=== PATIENT | female | born 1965 | race Caucasian/White ===

== ENCOUNTER 2023-06-07 13:50 | Outpatient (OUT) | payer OTHER, SELFPAY ==
--- NOTE | 2023-06-07 | MM_ITS ---
Patient: SONAL AGUILLON Exam Date: 06/07/2023 : 1965 Gender:F Ordering : DR TOAN PHELAN . Admission #: [id number] Family : Order #: [id number] CLICK HERE TO VIEW EXAM RADIOLOGY REPORT PROCEDURE: MM TOMOSYNTHESIS SCREENING BI COMPARISON: MG MAMM SCREEN 3D ALLYSON CAD, 11/15/2020. MG MAMM SCREEN 3D ALLYSON CAD, 06/01/2022. INDICATIONS: Allyson Screening Mammogram Calculator Name NCI Breast Cancer Risk Assessment Tool 5 Year Breast Cancer Risk 1.50% Lifetime Breast Cancer Risk 8.30% Personal Breast Cancer No Personal Ovarian Cancer No Treatments None Family Cancers Father with prostate cancer at age 55; Father with pancreatic cancer at age 60. LOCATION: [facility] BREAST COMPOSITION: Scattered areas fibroglandular density. FINDINGS: DIAGNOSTIC CATEGORY 1--NEGATIVE. NO CHANGE FROM COMPARISON ASSESSMENT. Scattered benign-appearing calcifications are present. Scattered benign-appearing lymph nodes are present. RIGHT BREAST: No significant suspicious finding. LEFT BREAST: No significant suspicious finding. RECOMMENDATIONS: ROUTINE MAMMOGRAM AND CLINICAL EVALUATION IN 12 MONTHS. PLEASE NOTE: A NORMAL MAMMOGRAM DOES NOT EXCLUDE THE POSSIBILITY OF BREAST CANCER. A CLINICALLY SUSPICIOUS PALPABLE LUMP SHOULD BE BIOPSIED. Dictated by: Jean Prasad MD on 06/07/2023 at 14:40 Approved by: Jean Prasad MD on 06/07/2023 at 14:43
== END 2023-06-07 13:51 | disposition home or self-care (01) ==
LOC: MAMMO 13:54
PROVIDERS: PCP Family Medicine; Visit Provider Family Medicine
DX: Z12.31 Encounter for screening mammogram for malignant neoplasm of breast (principal); Z80.0 Family history of malignant neoplasm of digestive organs; Z80.42 Family history of malignant neoplasm of prostate
CPT/HCPCS: 77063; 77067

== ENCOUNTER 2023-06-12 09:30 | Outpatient (OUT) | payer OTHER, SELFPAY ==
[2023-06-12 11:02] LABS: Alanine Aminotransferase 24 U/L (14-59); Albumin Globulin Ratio 1.2; Albumin Level 3.9 g/dL (3.4-5.0); Alkaline Phosphatase 37 U/L (46-116); Anion Gap 10.5; Aspartate Amino Transferase 14 U/L (15-37); BUN Creatinine Ratio 24.7; Bilirubin Total 0.6 mg/dL (0.2-1.0); Calcium 8.9 mg/dL (8.5-10.1); Carbon Dioxide 28.8 mmol/L (21.0-32.0); Chloride 103 mmol/L (98-107); Chol HDL Ratio 3.7; Cholesterol 163 mg/dL (<=200); Estimated GFR (African America >60 (>=60); Estimated GFR (Non-African Ame >60 (>=60); Globulin 3.3 g/dL; Glucose 93 mg/dL (74-106); HDL Cholesterol 44 mg/dL (40-60); LDL Cholesterol Calculated 110.2 mg/dL; Potassium 4.3 mmol/L (3.5-5.1); Sodium 138 mmol/L (136-145); Total Protein 7.2 g/dL (6.4-8.2); Triglycerides 44 mg/dL (<=150); VLDL CHOLESTEROL 8.8 mg/dL
== END 2023-06-12 09:31 | disposition home or self-care (01) ==
PROVIDERS: PCP Family Medicine; Visit Provider Family Medicine
DX: Z00.00 Encounter for general adult medical examination without abnormal findings (principal); Z13.220 Encounter for screening for lipoid disorders; E88.819 Insulin resistance, unspecified; Z13.1 Encounter for screening for diabetes mellitus
CPT/HCPCS: 36415; 80053; 80061; 82627

== ENCOUNTER 2024-06-12 12:49 | Outpatient (OUT) | payer OTHER, SELFPAY ==
--- NOTE | 2024-06-12 12:52 | MM_ITS ---
Patient Name: SONAL AGUILLON MR#: [id number] : 1965 Exam Date: 06/12/2024 Ordering Doctor: DR TOAN PHELAN . RADIOLOGY REPORT PROCEDURE: MM TOMOSYNTHESIS SCREENING BI COMPARISON: MG MAMM SCREEN 3D ALLYSON CAD, 06/01/2022. MM TOMOSYNTHESIS SCREENING BI, 06/07/2023. INDICATIONS: Screening for malignant neoplasm Calculator Name NCI Breast Cancer Risk Assessment Tool 5 Year Breast Cancer Risk 1.60% Lifetime Breast Cancer Risk 8.10% Personal Breast Cancer No Personal Ovarian Cancer No Treatments None Family Cancers Father with prostate cancer at age 55; Father with pancreatic cancer at age 60. LOCATION: [facility] BREAST COMPOSITION: There are scattered areas of fibroglandular density. FINDINGS: DIAGNOSTIC CATEGORY 1--NEGATIVE. NO CHANGE FROM COMPARISON ASSESSMENT. Scattered benign-appearing calcifications are present. Scattered benign-appearing lymph nodes are present. RIGHT BREAST: No significant suspicious finding. LEFT BREAST: No significant suspicious finding. RECOMMENDATIONS: ROUTINE MAMMOGRAM AND CLINICAL EVALUATION IN 12 MONTHS. PLEASE NOTE: A NORMAL MAMMOGRAM DOES NOT EXCLUDE THE POSSIBILITY OF BREAST CANCER. A CLINICALLY SUSPICIOUS PALPABLE LUMP SHOULD BE BIOPSIED. Dictated by: Jena Prasad MD on 06/12/2024 at 14:52 Approved by: Jean Prasad MD on 06/12/2024 at 14:56
--- OUTSIDE RECORDS SUMMARY | 2024-06-12 12:53 | XMS_ITS | CCD ---
Author Organization [facility] Inform ion Partnership [facility] Care Team Providers Care Psych Coordinator Name Role Phone ZHANE, DR JOYA Admitting Unavailable HEMERAFIQ, DR JOYA Attending Unavailable MISC, DR FONG Primary Care Unavailable ZHANE, DR JOYA Consulting Unavailable DANA, DR CHANTE Montoya Consulting Unavailable ZHANE, DR JOYA Admitting Unavailable ZHANE, DR JOYA Attending Unavailable MISC, DR FONG Primary Care Unavailable ZHANE, DR JOYA Consulting Unavailable DANA, DR CHANTE Montoya Consulting Unavailable MARY, DR ZAVALA Admitting Unavailable MARY, DR ZAVALA Attending Unavailable MISC, DR FONG Primary Care Unavailable MARY, DR ZAVALA Consulting Unavailable Jason Phelan MD Primary Care Provider [phone] JASON PHELAN Attending Unavailable JASON PHELAN Attending Unavailable Allergies Allergy Classification Reported Allergen(s) Allergy Type Date of Onset Reaction(s) Facility (3 sources) Sulfamethoxazole Allergy to substance 3 [facility] (3 sources) Trimethoprim Drug Allergy 3 [facility] Medications Current Medications Medication Drug Class(es) Dates Sig (Normalized) Sig (Original) ALPRAZolam 0.25 mg oral tablet (3 sources) Benzodiazepine Start: 09-14-2022 take 1 tablet by mouth three times daily as needed for anxiety ALPRAZolam (Xanax) 0.25 MG tablet Indications: Generalized anxiety disorder (CMS/HCC) Take 1 tablet (0.25 mg) by mouth 3 (three) times a day as needed for anxiety for up to 10 days 15 tablet 10/07/2023 Active citalopram 40 mg oral tablet (3 sources) Serotonin Reuptake Inhibitor Start: 03-27-2024 End: 09-23-2024 take 1 tablet by mouth once daily citalopram (CeleXA) 40 MG tablet Indications: Generalized anxiety disorder (CMS/HCC) Take 1 tablet (40 mg) by mouth Daily 90 tablet 1 03/27/2024 09/23/2024 Active Start: 04-14-2023 End: 10-11-2023 take 1 tablet by mouth in the morning citalopram (CeleXA) 40 MG tablet Indications: Generalized anxiety disorder (CMS/HCC) Take 1 tablet (40 mg) by mouth in the morning. 90 tablet 1 04/14/2023 10/11/2023 Active Hormone Cream Base (HRT Cream Base Women) cream (3 sources) Start: 04-21-2023 Hormone Cream Base (HRT Cream Base Women) cream Indications: Menopausal syndrome , Hot flashes due to menopause Use 1 mL nightly days 1 through 25 of the month 0 04/21/2023 Active meclizine hydrochloride 25 mg oral tablet (3 sources) Antiemetic take 1 tablet by mouth every eight hours meclizine (Antivert) 25 MG tablet Take 25 mg by mouth every 8 (eight) hours. 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] Onset: 04-01-2023 04-01-2023 Chronic Immunizations and screening for infectious disease (1 source) Encounter for screening for human papillomavirus (HPV); Translations: [ENC SCREENING HUMAN PAPILLOMAVIRUS] Onset: 06-02-2022 Episodic Menopausal disorders (4 sources) Menopausal and female climacteric states; Translations: [Menopausal flushing] Onset: 07-04-2022 04-01-2023 Chronic Other nutritional; endocrine; and metabolic disorders (3 sources) Insulin resistance; Translations: [Insulin resistance] Onset: 04-01-2023 04-01-2023 Chronic Other screening for suspected conditions (not mental disorders or infectious disease) (9 sources) Encounter for screening for osteoporosis; Translations: [Encounter for screening for malignant neoplasm of cervix] Onset: 06-01-2022 Episodic Residual codes; unclassified (1 source) Family history of malignant neoplasm of prostate; Translations: [FAMILY HX MALIG NEOPLASM PROSTATE] Onset: 06-02-2022 Episodic Residual codes; unclassified (1 source) Family history of malignant neoplasm of other organs or systems; Translations: [FAM HX MALIG NEOPLASM OTH ORGN/SYS] Onset: 06-02-2022 Episodic Past or Other Problems Problem Classification Problem Date Documented Da te Episodic/Chronic Conditions associated with dizziness or vertigo (3 sources) Vertigo; Translations: [Dizziness and giddiness] Onset: 04-01-2023 Resolved: 06-07-2023 06-07-2023 Episodic Menopausal disorders (3 sources) Drug therapy status; Translations: [Hormone replacement therapy] Onset: 04-01-2023 04-01-2023 Episodic Other connective tissue disease (3 sources) Poor posture; Translations: [Abnormal posture] Onset: 04-01-2023 04-01-2023 Episodic Other ear and sense organ disorders (3 sources) Bilateral tinnitus; Translations: [Tinnitus, bilateral] Onset: 04-01-2023 04-01-2023 Episodic Screening and history of mental health and substance abuse codes (3 sources) Ex-smoker; Translations: [Personal history of nicotine dependence] Onset: 08-29-2019 05-31-2023 Episodic Results Test Name Value Interpretation Reference Range Facil ity XR DEXA BONE DENSITYon 06-29 XR DEXA BONE DENSITY EXAMINATION: XR DEXA BONE DENSITY, 06/29/2022 8:58 AM EST HISTORY: Screening for osteoporosis COMPARISON: 01/09/2020 TECHNIQUE: Dual-energy X-ray absorptiometry (DEXA) bone density study performed for the axial skeleton. FINDINGS: Bone mineral density AP spine L1-L4 measures 1.347 g/sq cm. Stable from the prior exam. T score 1.4. WHO classification: Normal. Lowest bone mineral density left femoral trochanter measuring 0.816 g/sq cm. T score -0.3. WHO classification: Normal IMPRESSION: Normal bone mineral density. Low fracture risk Electronically authenticated by: CHANTE CORTEZ Date: 2022-06-29 17:06 Normal [facility] PAP ACOG PANEL 2: 30 to 65on 06-06-2022 . . Normal [facility] Comment on above: Result Comment: Performed at: WB Performed By: #### [id number] #### [facility] [address] [place] [address] Dr. May Tabor Age Gdln ACOG Testing 30-65 Normal [facility] Comment on above: Performed By: #### [id number] #### [facility] [address] [place] [address] Dr. May Tabor DIAGNOSIS: Comment Normal [facility] Comment on above: Result Comment: NEGATIVE FOR INTRAEPITHE LIAL LESION OR MALIGNANCY. Performed at: WB Performed By: #### [id number] #### [facility] [address] [place] [address] Dr. May Tabor HPV Aptima Negative Normal Negative [facility] Comment on above: Result Comment: This nucleic acid amplif ication test detects fourteen high-risk HPV types (16,18,31,33,35,39,45,51,52,56,58,59,66,68) without differentiation. Performed at: =G Performed By: #### [id number] #### [facility] [address] [place] [address] Dr. May Tabor Methodology: Comment Normal [facility] Comment on above: Result Comment: This liquid based ThinPr ep(R) pap test was screened with the use of an image guided system. Performed at: WB Performed By: #### [id number] #### [facility] [address] [place] [address] Dr. May Tabor Note: Comment [facility] Comment on above: Result Comment: The Pap smear is a scree jorge test designed to aid in the detection of premalignant and malignant conditions of the uterine cervix. It is not a diagnostic procedure and should not be used as the sole means of detecting cervical cancer. Both false-positive and false-negative reports do occur. . Performed at: WB Performed By: #### [id number] #### [facility] [address] [place] [address] Dr. May Tabor Performed by: Comment Normal [facility] Comment on above: Result Comment: Marlee Jyoce, [employer] nologist (ASCP) Performed at: WB Performed By: #### [id number] #### [facility] [address] [place] [address] Dr. May Tabor Specimen adequacy: Comment Normal [facility] Comment on above: Result Comment: Satisfactory for evaluat ion. Endocervical and/or squamous metaplastic cells (endocervical component) are present. Performed at: WB Performed By: #### [id number] #### [facility] [address] [address] [address] May Tabor MG MAMM SCREEN 3D ALLYSON CADon 06-01-2022 MG MAMM SCREEN 3D ALLYSON CAD Patient: SONAL AGUILLON Exam Date: 06/01/2022 : 1965 Gender:F Ordering : DR JASON PHELAN . Admission #: [id number] Family : Order #: [id number] CLICK HERE TO VIEW EXAM RADIOLOGY REPORT PROCEDURE: MAMMOGRAM SCREENING 3D BILATERAL CAD COMPARISON: MG MAMM SCREEN ALLYSON W CAD, 11/10/2019. MG MAMM SCREEN 3D ALLYSON CAD, 11/15/2020. INDICATIONS: Screening mammography Calculator Name NCI Breast Cancer Risk Assessment Tool 5 Year Breast Cancer Risk 1.50% Lifetime Breast Cancer Risk 8.50% Personal Breast Cancer No Personal Ovarian Cancer No Treatments None Family Cancers Father with prostate cancer at age 55; Father with pancreatic cancer at age 60. LOCATION: [facility] BREAST COMPOSITION: Scattered areas fibroglandular density. FINDINGS: DIAGNOSTIC CATEGORY 1--NEGATIVE. NO CHANGE FROM COMPARISON ASSESSMENT. Scattered benign-appearing calcifications are present. Scattered benign-appearing lymph nodes are present. RIGHT BREAST: No significant suspicious finding. LEFT BREAST: No significant suspicious finding. RECOMMENDATIONS: ROUTINE MAMMOGRAM AND CLINICAL EVALUATION IN 12 MONTHS. PLEASE NOTE: A NORMAL MAMMOGRAM DOES NOT EXCLUDE THE POSSIBILITY OF BREAST CANCER. A CLINICALLY SUSPICIOUS PALPABLE LUMP SHOULD BE BIOPSIED. Dictated by: Chante Cortez MD on 06/01/2022 at 14:08 Approved by: Chante Cortez MD on 06/01/2022 at 14:14 Normal [facility] Encounters Encounter Date Encounter Type Care Provider Facility Start: 06-12-2024 End: 06-12-2024 Maurizio Phelan MD Work Phone: [facility] Start: 06-12-2024 End: 06-12-2024 Maurizio Phelan MD Work Phone: [facility] Start: 03-27-2024 End: 03-27-2024 ambulatory JASON PHELAN Not Available Start: 10-07-2023 End: 10-07-2023 ambulatory JASON PHELAN Not Available Start: 10-07-2023 Bamboo flowsheet Jason henry MD Work Phone: [facility] Start: 10-07-2023 Bamboo flowsheet Jason henry MD Work Phone: [facility] Start: 10-02-2023 Chart abstracting Jason castro MD Work Phone: [facility] Start: 06-29-2022 End: 06-30-[address] JASON PHELAN Facility:[facility] Start: 06-01-2022 End: 06-01-[address] SALLY HERNANDEZ Facility:[facility] Start: 06-01-2022 End: 06-02-[address] JASON PHELAN Facility:[facility] Procedures Date Procedure Procedure Detail Performing Clinician Start: 06-07-2023 Mammography Jason castro MD Work Phone: Start: 12-01-2017 Colonoscopy Jason castro MD Work Phone: Plan of Treatment Date Care Activity Detail Author Start: 12-02-2027 [facility] Start: 09-19-2024 End: 09-19-2024 Patient encounter procedure 09/19/2024 3:30 PM EST Office Visit [facility] [address] [address] Jason Phelan MD [address] [place] [address] (Fax) [facility] Start: 06-19-2024 End: 06-19-2024 Patient encounter procedure 06/19/2024 3:30 PM EDT Office Visit [facility] [address] [facility] [address] [place] [address] Jason Phelan MD [address] [place] [address] (Fax) [facility] Start: 06-12-2024 End: 06-12-2024 Patient encounter procedure 06/12/2024 9:30 AM EDT Office Visit [facility] [address] [address] Jason Phelan MD [address] [place] [address] (Fax) Encounter for wellness examination in adult; Advance directive in chart; Screening for diabetes mellitus (DM); Screening for lipid disorders; Screening mammogram, encounter for; Former smoker [facility] Comment on above: Encounter for wellne ss examination in adult; Advance directive in chart; Screening for diabetes mellitus (DM); Screening for lipid disorders; Screening mammogram, encounter for; Former smoker Start: 06-07-2024 Screening for malign ant neoplasm of breast Mammogram [facility] Start: 04-23-2024 Influenza vaccination Influenza Vacc ine (#1) [facility] Start: 10-07-2023 End: 10-07-2023 Patient encounter procedure [facility] Comment on above: Generalized anxiety disorder (CMS/HCC); Former smoker; BMI 25.0-25.9,adult Start: 1993 Screening for malign ant neoplasm of cervix [facility] Start: 1984 Screening for malign ant neoplasm of cervix Pap Smear [facility] Start: 1965 Screening for malign ant neoplasm of colon [facility] Immunizations Immunization Date Immunization Notes Care Provider Fa [facility] 05-29-2023 Influenza, injectabl e, Madin [place] Canine Kidney, preservative free, quadrivalent Jason Phelan MD Work Phone: [facility] 05-29-2023 influenza virus vacc ine, unspecified formulation Jason Phelan MD Work Phone: [facility] 06-10-2022 influenza, injectabl e, quadrivalent, preservative free Jason Phelan MD Work Phone: [facility] 08-22-2021 zoster vaccine recombinant Jason Phelan MD Work Phone: [facility] 06-20-2021 zoster vaccine recombinant Jason Phelan MD Work Phone: [facility] 06-04-2021 influenza, seasonal, injectable Jason Phelan MD Work Phone: [facility] 06-11-2020 influenza, injectabl e, quadrivalent, preservative free Jason Phelan MD Work Phone: [facility] 06-19-2019 influenza, injectabl e, quadrivalent, preservative free Jason Phelan MD Work Phone: [facility] 06-04-2018 influenza, injectabl e, quadrivalent, preservative free Jason Phelan MD Work Phone: [facility] 06-21-2017 influenza, high dose seasonal, preservative-free Jason Phelan MD Work Phone: [facility] 05-11-2016 influenza, injectabl e, quadrivalent, preservative free Jason Phelan MD Work Phone: [facility] 06-03-2015 influenza, injectabl e, quadrivalent, preservative free Jason Phelan MD Work Phone: [facility] 09-25-2009 novel influenza-H1N1 -09, preservative-free, injectable Jason Phelan MD Work Phone: [facility] Payers Date Payer Category Payer Unknown [employer] [id number] 2023-Present [address] [address] [place] [address] [id number] 2022 Private Health Insurance [facility] [id number] 2022 Unknown [id number] 1965 Unknown [id number] 1965 Unknown [id number] 1965 Unknown [id number] 1965 Unknown [id number] 1965 Unknown [id number] 1959 Unknown [id number] Social History Date Type Detail Facility Start: 06-06-2023 End: 10-07-2023 Tobacco smoking status [facility] Ex-smoker [facility] Start: 08-23-1979 End: 08-23-2009 History of tobacco use Current smoker [facility] Start: 08-23-1979 End: 08-23-2009 History of tobacco use Cigarette Smoker [facility] Start: 06-06-2023 End: 10-07-2023 Tobacco use and exposure Smokeless tobacco non-user [facility] Start: 06-14-2023 End: 10-07-2023 Alcohol intake Current drinker of alcohol (finding) [facility] Start: 09-30-2023 End: 10-07-2023 History of Social function [facility] Start: 09-30-2023 End: 10-07-2023 Humiliation, Afraid, Rape, and Kick questionnaire [HARK] [facility] Within the last year , have you been afraid of your partner or ex-partner? No [facility] Start: 04-01-2023 How often do you att end meetings of the clubs or organizations you belong to? Patient refused [facility] Are you now , , , , never or living with a partner? [facility] How often to you hav e a drink containing alcohol? 4 or more times a week [facility] How many standard dr inks containing alcohol do you have on a typical day? 1 or 2 [facility] How often do you hav e 6 or more drinks on 1 occasion? Less than monthly [facility] Do you feel stress - tense, restless, nervous, or anxious, or unable to sleep at night because your mind is troubled all the time - these days [OSQ] Not at all [facility] (I/We) worried wheth er (my/our) food would run out before (I/we) got money to buy more. Never true [facility] Start: 06-06-2023 Education 13 [facility] Start: 06-06-2023 Alcohol Comment Caffeine intak e : 3 cups per day of coffee [facility] Start: 1965 Sex Assigned At Female [facility] Start: 01-04-2023 Gender identity Identifies as female gender (finding) [facility] NEGATED: Highlighted rowStart: NINF History of tobacco use Passive smoker [facility] Summary Purpose Family History No Family History Records FoundNo Family History Records Found Advance Directives Documents on File Type Date Recorded Patient [employer] Expl anation Advance Directives and Living Will 08/29/2019 2019-08-26 Living Wi ll Advance Directives and Living Will 08/29/2019 2019-08-26 Power Of Adaptive Physical Educator Additional Source Comments INFORMATION SOURCE (unrecogn ized section and content) DATE CREATED AUTHOR 07/04/2022 [facility] DATE CREATED AUTHOR AUTHOR'S ORGANIZ ATION 03/29/2024 [facility] Special[facility] [employer] Care Teams (unrecognized sec tion and content) Psych Coordinator Relationship Specialty Start Date End Date Jason Phelan MD [address] [place] [address] (Fax) PCP - General Family Medicine 01/04/23 Psych Coordinator Relationship Specialty Start Date End Date Jason Phelan MD [address] [place] [address] PCP - General Family Medicine 01/04/23 Psych Coordinator Relationship Specialty Start Date End Date Jason Phelan MD [address] [place] [address] PCP - General Family Medicine 01/04/23 FOR RECORDS PERTAINING TO PATIENTS WHO ARE OR HAVE BEEN ENROLLED IN A CHEMICAL DEPENDENCY/SUBSTANCEABUSE PROGRAM, SOME INFORMATION MAY BE OMITTED. This clinical summary was aggregated from multiple sources. Caution should be exercised in using it in the provision of clinical care. This summary normalizes information from multiple sources, and as a consequence, information in this document may materially change the coding, format and clinical context of patient data. In addition, data may be omitted in some cases. CLINICAL DECISIONS SHOULD BE BASED ON THE PRIMARY CLINICAL RECORDS. [facility] [facility]. provides no warranty or guarantee of the accuracy or completeness of information in this document.
== END 2024-06-12 12:50 | disposition home or self-care (01) ==
LOC: MAMMO 12:49
PROVIDERS: PCP Family Medicine; Visit Provider Family Medicine
DX: Z12.31 Encounter for screening mammogram for malignant neoplasm of breast (principal); Z80.42 Family history of malignant neoplasm of prostate; Z80.0 Family history of malignant neoplasm of digestive organs
CPT/HCPCS: 77063; 77067

== ENCOUNTER 2024-06-12 13:24 | Outpatient (OUT) | payer OTHER, SELFPAY ==
--- OUTSIDE RECORDS SUMMARY | 2024-06-12 13:29 | XMS_ITS | CCD ---
Author Organization [facility] Inform ion Partnership [facility] Care Team Providers Care Review Appraiser Name Role Phone ZHANE, DR JOYA Admitting Unavailable HEMERAFIQ, DR JOYA Attending Unavailable MISC, DR FONG Primary Care Unavailable ZHANE, DR JOYA Consulting Unavailable DANA, DR CHANTE Montoya Consulting Unavailable ZHANE, DR JOYA Admitting Unavailable ZHANE, DR JOYA Attending Unavailable MISC, DR FNOG Primary Care Unavailable ZHANE, DR JOYA Consulting Unavailable DANA, DR CHANTE Montoya Consulting Unavailable MARY, DR ZAVALA Admitting Unavailable MARY, DR ZAVALA Attending Unavailable MISC, DR FONG Primary Care Unavailable MARY, DR ZAVALA Consulting Unavailable Jason Phelan MD Primary Care Provider JASON PHELAN Attending Unavailable JASON PHELAN Attending Unavailable Allergies Allergy Classification Reported Allergen(s) Allergy Type Date of Onset Reaction(s) Facility (3 sources) Sulfamethoxazole Allergy to substance 3 [facility] (3 sources) Trimethoprim Drug Allergy 3 [facility] Medications Current Medications Medication Drug Class(es) [...] by: CHANTE CORTEZ Date: 2022-06-29 17:06 Normal [facility] PAP ACOG PANEL 2: 30 to 65on 06-06-2022 . . Normal [facility] Comment on above: Result Comment: Performed at: WB Performed By: #### [id number] #### [facility] [address] [place] [address] Dr. May Tabor Age Gdln ACOG Testing 30-65 Normal [facility] Comment on above: Performed By: #### [id number] #### [facility] [address] [place] [address] Dr. May Tabor DIAGNOSIS: Comment Normal [facility] Comment on above: Result Comment: NEGATIVE FOR INTRAEPITHE LIAL LESION OR MALIGNANCY. Performed at: WB Performed By: #### [id number] #### [facility] [address] [place] [address] Dr. May Tabor HPV Aptima Negative Normal Negative [facility] Comment on above: Result Comment: This nucleic acid amplif ication test detects fourteen high-risk HPV types (16,18,31,33,35,39,45,51,52,56,58,59,66,68) without differentiation. Performed at: =G Performed By: #### [id number] #### [facility] [address] [place] [address] Dr. May Tabor Methodology: Comment Normal [facility] Comment on above: Result Comment: This liquid based ThinPr ep(R) pap test was screened with the use of an image guided system. Performed at: WB Performed By: #### [id number] #### [facility] [address] [place] [address] Dr. May Tabor Note: Comment [facility] Comment on above: Result Comment: The Pap smear is a scree jorge test designed to aid in the detection of premalignant and malignant conditions of the uterine cervix. It is not a diagnostic procedure and should not be used as the sole means of detecting cervical cancer. Both false-positive and false-negative reports do occur. . Performed at: WB Performed By: #### [id number] #### [facility] [address] [place] [address] Dr. May Tabor Performed by: Comment Normal [facility] Comment on above: Result Comment: Marlee Joyce, Cytotech nologist (ASCP) Performed at: WB Performed By: #### [id number] #### [facility] [address] [place] [address] Dr. May Tabor Specimen adequacy: Comment Normal [facility] Comment on above: Result Comment: Satisfactory for evaluat ion. Endocervical and/or squamous metaplastic cells (endocervical component) are present. Performed at: WB Performed By: #### [id number] #### [facility] [address] [address] [address] May Tabor MG MAMM SCREEN 3D ALLYSON CADon 06-01-2022 MG MAMM SCREEN 3D ALLYSON CAD Patient: SONAL AGUILLON Exam Date: 06/01/2022 : 1965 Gender:F Ordering : DR JASON PHELAN . Admission #: [id number] Family : Order #: [id number] CLICK HERE TO VIEW EXAM RADIOLOGY REPORT [...] pancreatic cancer at age 58. LOCATION: [facility] BREAST COMPOSITION: Scattered areas fibroglandular density. [...] Cortez MD on 06/01/2022 at 14:14 Normal [facility] Encounters Encounter Date Encounter Type Care [...] [facility] Start: 09-19-2024 End: 09-19-2024 Patient encounter procedure 09/19/2024 3:30 PM EST Office Visit [facility] [address] [address] Jason Phelan MD [address] [place] [address] (Fax) [facility] Start: 06-19-2024 End: 06-19-2024 Patient encounter procedure 06/19/2024 3:30 PM EDT Office Visit [facility] [address] [facility] [address] [place] [address] Jason Phelan MD [address] [place] [address] (Fax) [facility] Start: 06-12-2024 End: 06-12-2024 Patient encounter procedure 06/12/2024 9:30 AM EDT Office Visit [facility] [address] [address] Jason Phelan MD [address] [place] [address] (Fax) Encounter for wellness examination in adult; [...] for malign ant neoplasm of breast Mammogram [facility] Start: 04-23-2024 Influenza vaccination Influenza Vacc ine (#1) [facility] Start: 10-07-2023 End: 10-07-2023 Patient encounter procedure [facility] Comment on above: Generalized anxiety disorder (CMS/HCC); Former smoker; BMI 25.0-25.9,adult Start: 1993 Screening for malign ant neoplasm of cervix [facility] Start: 1984 Screening for malign ant neoplasm of cervix Pap Smear [facility] Start: 1965 Screening for malign ant neoplasm of colon [facility] Immunizations Immunization Date Immunization Notes Care Provider [facility] 05-29-2023 Influenza, injectabl e, Madin [place] Canine Kidney, preservative free, quadrivalent Jason Phelan MD Work Phone: [facility] 05-29-2023 influenza virus vacc ine, unspecified formulation Jason Phelan MD Work Phone: [facility] 06-10-2022 influenza, injectabl e, quadrivalent, preservative free Jason Phelan MD Work Phone: [facility] 08-22-2021 zoster vaccine recombinant Jason Phelan MD Work Phone: [facility] 06-20-2021 zoster vaccine recombinant Jason Phelan MD Work Phone: [facility] 06-04-2021 influenza, seasonal, injectable Jason Phelan MD Work Phone: [facility] 06-11-2020 influenza, injectabl e, quadrivalent, preservative free Jason Phelan MD Work Phone: [facility] 06-19-2019 influenza, injectabl e, quadrivalent, preservative free Jason Phelan MD Work Phone: [facility] 06-04-2018 influenza, injectabl e, quadrivalent, preservative free Jason Phelan MD Work Phone: [facility] 06-21-2017 influenza, high dose seasonal, preservative-free Jason Phelan MD Work Phone: [facility] 05-11-2016 influenza, injectabl e, quadrivalent, preservative free Jason Phelan MD Work Phone: [facility] 06-03-2015 influenza, injectabl e, quadrivalent, preservative free Jason Phelan MD Work Phone: [facility] 09-25-2009 novel influenza-H1N1 -09, preservative-free, injectable Jason Phelan MD Work Phone: [facility] Payers Date Payer Category Payer Unknown [employer] [id number] 2023-Present [address] [address] [place] [address] [id number] 2022 Private Health Insurance [facility] [id number] 2022 Unknown [id number] 1965 Unknown [id number] 1965 Unknown [id number] 1965 Unknown [id number] 1965 Unknown [id number] 1965 Unknown [id number] 1959 Unknown [id number] Social History Date Type Detail Facility Start: 06-06-2023 End: 10-07-[address] 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 Advance Directives and Living Will 08/29/2019 2019-08-26 Living Wi ll Advance Directives and Living Will 08/29/2019 2019-08-26 Power Of Children'S Counselor Additional Source Comments INFORMATION SOURCE (unrecogn ized section and content) DATE CREATED AUTHOR 07/04/2022 [facility] DATE CREATED AUTHOR AUTHOR'S ORGANIZ ATION 03/29/2024 [facility] [employer] Care Teams (unrecognized sec tion and content) Review Appraiser Relationship Specialty Start Date End Date Jason Phelan MD [address] [place] [address] (Fax) PCP - General Family Medicine 01/04/23 Review Appraiser Relationship Specialty Start Date End Date Jason Phelan MD [address] [place] [address] PCP - General Family Medicine 01/04/23 Review Appraiser Relationship Specialty Start Date End Date Jason Phelan MD [address] [place] [address] PCP - General Family Medicine 01/04/23 FOR [...] BE BASED ON THE PRIMARY CLINICAL RECORDS. [facility]. provides no warranty or guarantee of the accuracy or completeness of information in this document.
[2024-06-12 14:01] LABS: Basophils Percent Auto 0.4 % (0.2-2.0); Eosinophils Absolute Auto 0.2 10^3/uL (0.0-0.7); Eosinophils Percent Auto 2.1 % (0.9-7.0); Hematocrit 34.2 % (36.0-48.0); Hemoglobin 10.5 g/dL (12.0-16.0); Immature Granulocytes Abs Auto 0.02 10^3/uL (0.00-0.03); Immature Granulocytes Pct Auto 0.3 % (0.0-0.5); Lymphocytes Absolute Auto 2.2 10^3/uL (1.2-3.8); Lymphocytes Percent Auto 28.9 % (20.5-60.0); Mean Corpuscular HGB Conc 30.7 g/dL (29.9-35.2); Mean Corpuscular Hemoglobin 21.3 pg (26.7-34.0); Mean Corpuscular Volume 69.2 fL (81.0-99.0); Mean Platelet Volume 10.3 fL (9.5-13.5); Monocytes Absolute Auto 0.5 10^3/uL (0.3-0.8); Monocytes Percent Auto 6.9 % (1.7-12.0); Neutrophils Absolute Auto 4.7 10^3/uL (1.4-6.5); Neutrophils Percent Auto 61.4 % (43.0-75.0); Platelet Count 411 10^3/uL (150-450); Red Blood Count 4.94 10^6/uL (4.20-5.40); Red Cell Distribution Width 15.9 % (11.0-15.0); White Blood Count 7.7 10^3/uL (4.0-11.0)
[2024-06-12 14:18] LABS: Erythrocyte Sedimentation Rate 13 mm/hr (<=30)
[2024-06-12 14:40] LABS: Free T3 2.03 pg/mL (2.18-3.98); Thyroid Stimulating Hormone 1.497 uIU/mL (0.358-3.740)
[2024-06-12 14:51] LABS: Free T4 0.71 ng/dL (0.76-1.46)
[2024-06-13 04:08] LABS: Triiodothyronine (T3) 61 ng/dL (71-180)
[2024-06-13 14:10] LABS: Thyroglobulin Antibody <1.0 IU/mL (0.0-0.9); Thyroid Peroxidase (TPO) Ab 10 IU/mL (0-34)
[2024-06-15 01:07] LABS: Reverse T3, Serum 12.5 ng/dL (9.2-24.1)
== END 2024-06-12 13:25 | disposition home or self-care (01) ==
LOC: LAB 13:27
PROVIDERS: PCP Family Medicine; Visit Provider Family Medicine
DX: M25.50 Pain in unspecified joint (principal); Z12.31 Encounter for screening mammogram for malignant neoplasm of breast; Z80.42 Family history of malignant neoplasm of prostate; Z80.0 Family history of malignant neoplasm of digestive organs; R53.82 Chronic fatigue, unspecified
CPT/HCPCS: 36415; 77063; 77067; 82306; 84439; 84443; 84480; 84481; 84482; 85025; 85652; 86038; 86376; 86800

== ENCOUNTER 2024-06-30 10:47 | Outpatient (OUT) | payer OTHER, SELFPAY ==
--- NOTE | 2024-06-30 10:49 | US_ITS ---
The [address] [address] Patient Name: SONAL AGUILLON MRN: [id number] date: 1965 Sex: F Assigned Patient Location: US Current Patient Location: Accession/Order Number: [id number] Exam Date: 06/30/2024 10:55 Report Date: 07/03/2024 11:12 At the request of: TOAN PHELAN Procedure: US thyroid EXAMINATION: US thyroid HISTORY: Chronic Fatigue, Thyroid Nodule COMPARISON: No relevant comparison available. TECHNIQUE: Sonographic images of the thyroid gland were obtained. FINDINGS: The right thyroid lobe is normal in size, contour and echotexture measuring 4.9 x 1.6 x 1.4 cm. No focal nodules Thyroid isthmus is normal measuring 2 mm. No nodules The left thyroid lobe is normal in size, contour and echotexture measuring 4.2 x 1.5 x 1.4 cm. No focal nodules US/US thyroid IMPRESSION: Normal exam TI-RADS: TI-RADS 1: Normal thyroid gland. No focal lesion. Electronically authenticated by: CHANTE CORTEZ Date: 07/03/2024 11:12
--- OUTSIDE RECORDS SUMMARY | 2024-06-30 11:00 | XMS_ITS | CCD ---
Author Organization [facility] Inform ion Partnership [facility] Care Team Providers Care Complex Director Name Role Phone ZHANE, DR JOYA Admitting Unavailable HEMEYER, DR JOYA Attending Unavailable MISC, DR FONG Primary Care Unavailable HEMEYER, DR JOYA Consulting Unavailable WEST, DR CHANTE Montoya Consulting Unavailable HEMEYER, DR JOYA Admitting Unavailable HEMEYER, DR JOYA Attending Unavailable MISC, DR FONG Primary Care Unavailable JIMENEZYER, DR JOYA Consulting Unavailable WEST, DR CHANTE Montoya Consulting Unavailable KARASIK, DR ZAVALA Admitting Unavailable KARKADEEM, DR ZAVALA Attending Unavailable MISC, DR FONG Primary Care Unavailable KARASIAlize, DR ZAVALA Consulting Unavailable Jason Phelan MD Primary Care Provider Jason Phelan MD Primary Care Provider JASON PHELAN Attending Unavailable JASON PHELAN Attending Unavailable JASON PHELAN Attending Unavailable JASON PHELAN Attending Unavailable JASON PHELAN Attending Unavailable Allergies Allergy Classification Reported Allergen(s) Allergy Type Date of Onset Reaction(s) Facility (12 sources) Sulfamethoxazole Allergy to substance 3 [facility] Healthcare (12 sources) Trimethoprim Drug Allergy 3 [facility] Medications Current Medications Medication Drug Class(es) Dates Sig (Normalized) Sig (Original) ALPRAZolam 0.25 mg oral tablet (12 sources) Benzodiazepine Start: 09-14-2022 take 1 tablet by mouth three times daily as needed for anxiety ALPRAZolam (Xanax) 0.25 MG tablet Indications: Generalized anxiety disorder (CMS/HCC) Take 1 tablet (0.25 mg) by mouth 3 (three) times a day as needed for anxiety for up to 10 days 15 tablet 10/07/2023 Active citalopram 40 mg oral tablet (12 sources) Serotonin Reuptake Inhibitor Start: 03-27-2024 End: [...] Cream Base (HRT Cream Base Women) cream (12 sources) Start: 04-21-2023 Hormone Cream Base (HRT Cream Base Women) cream Indications: Menopausal syndrome , Hot flashes due to menopause Use 1 mL nightly days 1 through 25 of the month 0 04/21/2023 Active levothyroxine sodium 0.075 mg oral tablet (2 sources) l-Thyroxine Start: 06-22-2024 End: 07-22-2024 take 1 tablet by mouth before mealtime levothyroxine (Synthroid) 75 MCG tablet Indications: Central hypothyroidism (CMS/HCC) Take 1 tablet (75 mcg) by mouth in the morning. Take before meals. 30 tablet 06/22/2024 07/22/2024 Active meclizine hydrochloride 25 mg oral tablet (12 sources) Antiemetic take 1 tablet by mouth every eight hours meclizine (Antivert) 25 MG tablet Take 25 mg by mouth every 8 (eight) hours. 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] Onset: 04-01-2023 04-01-2023 Chronic Deficiency and other anemia (2 sources) Iron deficiency anemia secondary to inadequate dietary iron intake; Translations: [Other iron deficiency anemias] 06-26-2024 Episodic Immunizations and screening for infectious disease (1 source) Encounter for screening for human papillomavirus (HPV); Translations: [ENC SCREENING HUMAN PAPILLOMAVIRUS] Onset: 06-02-2022 Episodic Malaise and fatigue (10 sources) Fatigue; Translations: [Chronic fatigue, unspecified] Onset: 06-19-2024 06-12-2024 Chronic Menopausal disorders (15 sources) Menopausal and female climacteric states; Translations: [Menopausal flushing] Onset: 07-04-2022 04-01-2023 Chronic Menstrual disorders (2 sources) Amenorrhea; Translations: [Amenorrhea, unspecified] 06-22-2024 Chronic Other and unspecified benign neoplasm (2 sources) Senile angioma; Translations: [Hemangioma of skin and subcutaneous tissue] 06-12-2024 Episodic Other non-traumatic joint disorders (2 sources) Joint pain; Translations: [Pain in unspecified joint] 06-12-2024 Episodic Other nutritional; endocrine; and metabolic disorders (12 sources) Insulin resistance; Translations: [Insulin resistance] Onset: 04-01-2023 04-01-2023 Chronic Other screening for suspected conditions (not mental disorders or infectious disease) (15 sources) Encounter for screening for osteoporosis; Translations: [...] MALIG NEOPLASM OTH ORGN/SYS] Onset: 06-02-2022 Episodic Residual codes; unclassified (2 sources) Active advance directive (copy within chart) ; Translations: [Other specified health status] 06-07-2024 Episodic Thyroid disorders (10 sources) Thyroid nodule; Translations: [Nontoxic single thyroid nodule] Onset: 06-19-2024 06-12-2024 Chronic Past or Other Problems Problem Classification Problem Date Documented Da te Episodic/Chronic Conditions associated with dizziness or vertigo (12 sources) Vertigo; Translations: [Dizziness and giddiness] Onset: 04-01-2023 Resolved: 06-07-2023 06-07-2023 Episodic Menopausal disorders (14 sources) Drug therapy status; Translations: [Hormone replacement therapy] Onset: 04-01-2023 04-01-2023 Episodic Other connective tissue disease (12 sources) Poor posture; Translations: [Abnormal posture] Onset: 04-01-2023 04-01-2023 Episodic Other ear and sense organ disorders (12 sources) Bilateral tinnitus; Translations: [Tinnitus, bilateral] Onset: 04-01-2023 04-01-2023 Episodic Screening and history of mental health and substance abuse codes (14 sources) Ex-smoker; Translations: [Personal history of nicotine dependence] Onset: 08-29-2019 05-31-2023 Episodic Results Test Name Value Interpretation Reference Range Facility ALL CBC WITH AUTO DIFFon BASOPHILS ABSOLUTE AUTO 0 [facility] Basophils/100 WBC (Bld) 0.4 % 0.2 - 2.0 % [facility] Eosinophils/100 WBC (Bld) 2.1 % 0.9 - 7.0 % [facility] Erythrocyte distribution width (RBC) [Ratio] 15.9 % High 11.0 - 15.0 % [facility] Hematocrit (Bld) [Volume fraction] 34.2 % Low 36.0 - 48.0 % [facility] Hem[facility] (Bld) [Mass/Vol] 10.5 g/dL Low 12.0 - 16.0 g/dL [facility] IMMATURE GRANULOCYTES ABS AUTO 0.02 [facility] Immature granulocytes/100 WBC (Bld) 0.3 % 0.0 - 0.5 % [facility] Interpretation and review of laboratory results Abnormal [facility] LYMPHOCYTES ABSOLUTE AUTO 2.2 [facility] Lymphocytes/100 WBC (Bld) 28.9 % 20.5 - 60.0 % [facility] MCH (RBC) [Entitic mass] 21.3 pg Low 26.7 - 34.0 pg [facility] MCHC (RBC) [Mass/Vol] 30.7 g/dL 29.9 - 35.2 g/dL [facility] MCV (RBC) [Entitic vol] 69.2 fL Low 81.0 - 99.0 fL [facility]OC[facility]TES [facility] Monocytes/100 WBC (Bld) 6.9 % 1.7 - 12.0 % [facility] NEUTROPHILS ABSOLUTE AUTO 4.7 [facility] Neutrophils/100 WBC (Bld) 61.4 % 43.0 - 75.0 % [facility] Platelet mean volume (Bld) [Entitic vol] 10.3 fL 9.5 - 13.5 fL [facility] Healthc are [facility] EO # 0.2 [facility] PLT 411 [facility] RBC 4.94 [facility] WBC 7.7 [facility] XR DEXA BONE DENSITYon 06-29 XR DEXA BONE DENSITY EXAMINATION: XR DEX A BONE DENSITY, 06/29/2022 8:58 AM EST HISTORY: [...] by: CHANTE CORTEZ Date: 2022-06-29 17:06 Normal [facility] PAP ACOG PANEL 2: 30 to 65on 06-06-2022 . . Normal [facility] Comment on above: Result Comment: Perf ormed at: WB Performed By: #### [id number] #### [facility] [address] [place] [address] Dr. May Tabor Age Gdln ACOG Testing 30-65 Normal [facility] Comment on above: Performed By: #### [id number] #### [facility] [address] [address] [address] May Tabor DIAGNOSIS: Comment Normal [facility] Comment on above: Result Comment: NEGA TIVE FOR INTRAEPITHELIAL LESION OR MALIGNANCY. Performed at: WB Performed By: #### [id number] #### [facility] [address] [address] [address] May Tabor HPV Aptima Negative Normal Negative [facility] Comment on above: Result Comment: This nucleic acid amplification test detects fourteen high-risk HPV types (16,18,31,33,35,39,45,51,52,56,58,59,66,68) without differentiation. Performed at: =G Performed By: #### [id number] #### [facility] [address] [place] [address] Dr. May Tabor Methodology: Comment Normal [facility] Comment on above: Result Comment: This liquid based ThinPrep(R) pap test was screened with the use of an image guided system. Performed at: WB Performed By: #### [id number] #### [facility] [address] [place] [address] Dr. May Tabor Note: Comment Normal [facility] Comment on above: Result Comment: The Pap smear is a screening test designed to aid in the detection of premalignant and malignant conditions of the uterine cervix. It is not a diagnostic procedure and should not be used as the sole means of detecting cervical cancer. Both false-positive and false-negative reports do occur. . Performed at: WB Performed By: #### [id number] #### [facility] [address] [place] [address] Dr. May Tabor Performed by: Comment Normal [facility] Comment on above: Result Comment: Amna Joyce Supervisor Packing (ASCP) Performed at: WB Performed By: #### [id number] #### [facility] [address] [place] [address] Dr. May Tabor Specimen adequacy: Comment Normal [facility] Comment on above: Result Comment: Sati sfactory for evaluation. Endocervical and/or squamous metaplastic cells (endocervical component) are present. Performed at: WB Performed By: #### [id number] #### [facility] [address] [place] [address] Dr. May Tabor MG MAMM SCREEN 3D ALLYSON CADon 06-01-2022 MG MAMM SCREEN 3D ALLYSON CAD Patient: SONAL AGUILLON Exam Date: 06/01/2022 : 1965 Gender:F Ordering : DR JASON PHELAN . Admission #: [id number] Family : Order #: [id number] CLICK HERE TO VIEW EXAM RADIOLOGY REPORT [...] pancreatic cancer at age 58. LOCATION: [facility] BREAST COMPOSITION: Scattered areas fibroglandular density. FINDINGS: [...] Cortez MD on 06/01/2022 at 14:14 Normal [facility] Vital Signs Date Time Vital Sign Value Performing Clinician Faci lity 06-19-2024 15:24-0400 Body height 162.6 cm Jason Phelan MD Work Phone: [facility] 06-19-2024 15:24-0400 Body mass index (BMI) [Ratio] 25.15 kg/m2 Jason Phelan MD Work Phone: [facility] 06-19-2024 15:24-0400 Body weight 66.45 kg Jason Phelan MD Work Phone: [facility] 06-12-2024 09:26-0400 Body height 162.6 cm Jason Phelan MD Work Phone: [facility] 06-12-2024 09:26-0400 Body mass index (BMI) [Ratio] 25.15 kg/m2 Jason Phelan MD Work Phone: [facility] 06-12-2024 09:26-0400 Body weight 66.45 kg Jason Phelan MD Work Phone: [facility] 06-12-2024 09:26-0400 Diastolic blood pressure 70 mm[Hg] Jason Phelan MD Work Phone: [facility] 06-12-2024 09:26-0400 Heart rate 68 /min Jason Phelan MD Work Phone: [facility] 06-12-2024 09:26-0400 SaO2% (BldA) [Mass fraction] 98 % Jason Phelan MD Work Phone: [facility] 06-12-2024 09:26-0400 Systolic blood pressure 120 mm[Hg] Jason Phelan MD Work Phone: [facility] Healthcare Encounters Encounter Date Encounter Type Care Provider Facility Start: 06-22-2024 End: 06-22-2024 Office outpatient visit 25 minutes Jason Phelan MD Work Phone: [facility] Comment on above: Amenorrhea (Primary Dx); Central hypothyroidism (CMS/HCC); Chronic fatigue; Iron deficiency anemia secondary to inadequate dietary iron intake Start: 06-22-2024 End: 06-22-2024 ambulatory JASON PHELAN Not Available Start: 06-22-2024 End: 06-22-2024 Bamboo flowsheet Jason Phelan MD Work Phone: [facility] Start: 06-22-2024 End: 06-22-2024 Bamboo flowsheet Jason Phelan MD Work Phone: [facility] Start: 06-19-2024 End: 06-19-2024 Office outpatient visit 25 minutes Jason Phelan MD Work Phone: [facility] Comment on above: Hot flashes due to m enopause (Primary Dx); Hormone replacement therapy Start: 06-19-2024 End: 06-19-2024 ambulatory JASON PHELAN Not Available Start: 06-19-2024 End: 06-19-2024 Bamboo flowsheet Jason Phelan MD Work Phone: [facility] Start: 06-19-2024 End: 06-19-2024 Bamboo flowsheet Jason Phelan MD Work Phone: [facility] Start: 06-12-2024 End: 06-12-2024 Bamboo flowsheet Jason Phelan MD Work Phone: [facility] Start: 06-12-2024 End: 06-12-2024 Bamboo flowsheet Jason Phelan MD Work Phone: [facility] Start: 06-12-2024 End: 06-12-2024 [facility] Result Encounter Jason Phelan MD Work Phone: [facility] Unsolicited Start: 06-12-2024 End: 06-12-2024 Patient encounter status Jason Phelan MD Work Phone: [facility] Work Phone: Start: 06-12-2024 End: 06-12-2024 Periodic preventive med est patient 40-64yrs Jason Phelan MD Work Phone: [facility] Comment on above: Encounter for wellne ss examination in adult; Advance directive in chart; Screening for diabetes mellitus (DM); Screening for lipid disorders; Screening mammogram, encounter for; Former smoker; Dermatitis; [place] angioma; Chronic fatigue; Arthralgia, unspecified joint; Thyroid nodule (CMS/HCC) Start: 06-12-2024 End: 06-12-2024 ambulatory JASON PHELAN Not Available Start: 03-27-2024 End: 03-27-2024 ambulatory JASON PHELAN [...] Date Procedure Procedure Detail Performing Clinician Start: 06-12-2024 ALL CBC WITH AUTO DIFF Jason Phelan MD Work Phone: Start: 06-12-2024 Mammography Jason castro MD Work Phone: Start: 06-07-2023 Mammography Jason castro MD Work Phone: Start: 12-01-2017 Colonoscopy Jason castro MD Work Phone: Plan of Treatment Date Care Activity Detail Author Start: 12-02-2027 Screening for malign ant neoplasm of colon [facility] Start: 06-12-2025 Screening for malign ant neoplasm of breast Mammogram [facility] Start: 06-12-2025 Screening for malign ant neoplasm of cervix Cervical Cancer Screening [facility] Comment on above: Postponed from 08/25 (Other Medical Reasons) Start: 09-19-2024 End: 09-19-2024 Patient encounter procedure [facility] Start: 07-17-2024 End: 07-17-2024 Patient encounter procedure 07/17/2024 9:00 AM EST Office Visit [facility] [address] [place] [address] Jason Phelan MD [address] [place] [address] (Fax) [facility] Start: 07-06-2024 End: 07-06-2024 Patient encounter procedure 07/06/2024 3:30 PM EST Office Visit [facility] [address] [place] [address] Jason Phelan MD [address] [place] [address] [facility] Start: 06-22-2024 End: 06-22-2024 Patient encounter procedure [facility] Comment on above: Central hypothyroidi sm (CMS/HCC); Chronic fatigue; Former smoker Start: 06-22-2024 End: 06-22-2025 ACTH ACTH Lab Routine Central hypothyroidism (CMS/HCC) Chronic fatigue Expected: 06/22/2024 (Approximate), Expires: 06/22/2025 [facility] Comment on above: Expected: 06/22/2024 (Approximate), Expires: 06/22/2025 Start: 06-22-2024 End: 06-22-2025 Cortisol Cortisol Lab Routine Central hypothyroidism (CMS/HCC) Chronic fatigue Expected: 06/22/2024 (Approximate), Expires: 06/22/2025 [facility] Comment on above: Expected: 06/22/2024 (Approximate), Expires: 06/22/2025 Start: 06-22-2024 End: 06-22-2025 FSH FSH Lab Routine Chronic fatigue Amenorrhea Expected: 06/22/2024 (Approximate), Expires: 06/22/2025 [facility] Comment on above: Expected: 06/22/2024 (Approximate), Expires: 06/22/2025 Start: 06-22-2024 End: 06-22-2025 Thyroxine (T4) free [Mass/volume] in Serum or Plasma T4, free Lab Routine Central hypothyroidism (CMS/HCC) Chronic fatigue Expected: 06/22/2024 (Approximate), Expires: 06/22/2025 [facility] Work Phone: Comment on above: Expected: 06/22/2024 (Approximate), Expires: 06/22/2025 Start: 06-19-2024 End: 06-19-2024 Patient encounter procedure [facility] Comment on above: Hormone replacement therapy; Former smoker Start: 06-12-2024 End: 06-12-2025 25-hydroxyvitamin D3 [Mass/volume] in Serum or Plasma Vitamin D 25 hydroxy Lab Routine Chronic fatigue Arthralgia, unspecified joint Expected: 06/12/2024 (Approximate), Expires: 06/12/2025 [facility] Comment on above: Expected: 06/12/2024 (Approximate), Expires: 06/12/2025 Start: 06-12-2024 End: 06-12-2025 SWATHI MULTIPLEX W/REFLEX 11 AB CASCADE SWATHI MULTIPLEX W/REFLEX 11 AB CASCADE Lab Routine Arthralgia, unspecified joint Expected: 06/12/2024 (Approximate), Expires: 06/12/2025 [facility] Work Phone: Comment on above: Expected: 06/12/2024 (Approximate), Expires: 06/12/2025 Start: 06-12-2024 End: 06-12-2025 CBC W Auto Differential panel - Blood CBC and differential Lab Routine Chronic fatigue Expected: 06/12/2024 (Approximate), Expires: 06/12/2025 [facility] Comment on above: Expected: 06/12/2024 (Approximate), Expires: 06/12/2025 Start: 06-12-2024 End: 06-12-2025 Comprehensive metabolic 2000 panel - Serum or Plasma Comprehensive metabolic panel Lab Routine Screening for diabetes mellitus (DM) Expected: 06/12/2024 (Approximate), Expires: 06/12/2025 [facility] Comment on above: Expected: 06/12/2024 (Approximate), Expires: 06/12/2025 Start: 06-12-2024 End: 06-12-2025 Erythrocyte sedimentation rate Sedimentation rate, automated Lab Routine Arthralgia, unspecified joint Expected: 06/12/2024 (Approximate), Expires: 06/12/2025 [facility] Comment on above: Expected: 06/12/2024 (Approximate), Expires: 06/12/2025 Start: 06-12-2024 End: 06-12-2025 Lipid 1996 panel - Serum or Plasma Lipid panel Lab Routine Screening for lipid disorders Expected: 06/12/2024 (Approximate), Expires: 06/12/2025 [facility] Comment on above: Expected: 06/12/2024 (Approximate), Expires: 06/12/2025 Start: 06-12-2024 End: 06-12-2025 T3, reverse T3, reverse Lab Routine Chronic fatigue Thyroid nodule (CMS/HCC) Expected: 06/12/2024 (Approximate), Expires: 06/12/2025 [facility] Comment on above: Expected: 06/12/2024 (Approximate), Expires: 06/12/2025 Start: 06-12-2024 End: 06-12-2025 Thyroglobulin Antibody Thyroglobulin Antibody Lab Routine Chronic fatigue Expected: 06/12/2024 (Approximate), Expires: 06/12/2025 [facility] Comment on above: Expected: 06/12/2024 (Approximate), Expires: 06/12/2025 Start: 06-12-2024 End: 06-12-2025 Thyroid peroxidase antibody Thyroid peroxidase antibody Lab Routine Chronic fatigue Expected: 06/12/2024 (Approximate), Expires: 06/12/2025 [facility] Comment on above: Expected: 06/12/2024 (Approximate), Expires: 06/12/2025 Start: 06-12-2024 End: 06-12-2025 Thyrotropin [Units/volume] in Serum or Plasma TSH Lab Routine Chronic fatigue Thyroid nodule (CMS/HCC) Expected: 06/12/2024 (Approximate), Expires: 06/12/2025 [facility] Comment on above: Expected: 06/12/2024 (Approximate), Expires: 06/12/2025 Start: 06-12-2024 End: 06-12-2025 Thyroxine (T4) free [Mass/volume] in Serum or Plasma T4, free Lab Routine Chronic fatigue Thyroid nodule (CMS/HCC) Expected: 06/12/2024 (Approximate), Expires: 06/12/2025 [facility] Comment on above: Expected: 06/12/2024 (Approximate), Expires: 06/12/2025 Start: 06-12-2024 End: 06-12-2025 Triiodothyronine (T3) [Mass/volume] in Serum or Plasma T3 Lab Routine Chronic fatigue Thyroid nodule (CMS/HCC) Expected: 06/12/2024 (Approximate), Expires: 06/12/2025 [facility] Comment on above: Expected: 06/12/2024 (Approximate), Expires: 06/12/2025 Start: 06-12-2024 End: 06-12-2025 Triiodothyronine (T3) Free [Mass/volume] in Serum or Plasma T3, free Lab Routine Chronic fatigue Thyroid nodule (CMS/HCC) Expected: 06/12/2024 (Approximate), Expires: 06/12/2025 [facility] Comment on above: Expected: 06/12/2024 (Approximate), Expires: 06/12/2025 Start: 06-12-2024 End: 06-12-2025 US Thyroid gland US thyroid Imaging Routine Chronic fatigue Thyroid nodule (CMS/HCC) Expected: 06/12/2024, Expires: 06/12/2025 [facility] Comment on above: Expected: 06/12/2024 , Expires: 06/12/2025 Start: 06-12-2024 End: 06-12-2024 Patient encounter procedure 06/12/2024 9:30 AM EDT Office Visit [facility] [address] [id number] Jason Phelan MD [address] [place] [address] Encounter for wellness examination in adult; Advance [...] for malign ant neoplasm of breast Mammogram [facility] Start: 04-23-2024 Influenza vaccination Influenza Vacc ine (#1) [facility] Start: 10-07-2023 End: 10-07-2023 Patient encounter procedure [facility] Comment on above: Generalized anxiety disorder (CMS/HCC); Former smoker; BMI 25.0-25.9,adult Start: 1993 Screening for malign ant neoplasm of cervix [facility] Start: 1984 Screening for malign ant neoplasm of cervix Pap Smear [facility] Start: 1965 Screening for malign ant neoplasm of colon [facility] Immunizations Immunization Date Immunization Notes Care Provider Fa cility 05-26-2024 influenza, seasonal, injectable, preservative free Jason Phelan MD Work Phone: [facility] 05-29-2023 Influenza, injectabl e, Madin Jesika Canine Kidney, preservative free, quadrivalent Jason Phelan MD Work Phone: [facility] 05-29-2023 influenza virus vacc ine, unspecified formulation Jason Phelan MD Work Phone: [facility] 06-10-2022 influenza, injectabl e, quadrivalent, preservative free Jason Phelan MD Work Phone: [facility] 08-22-2021 zoster vaccine recombinant Jason Phelan MD Work Phone: [facility] 06-20-2021 zoster vaccine recombinant Jason Phelan MD Work Phone: [facility] 06-04-2021 influenza, seasonal, injectable Jason Phelan MD Work Phone: [facility] 06-11-2020 influenza, injectabl e, quadrivalent, preservative free Jason Phelan MD Work Phone: [facility] 06-19-2019 influenza, injectabl e, quadrivalent, preservative free Jason Phelan MD Work Phone: [facility] 06-04-2018 influenza, injectabl e, quadrivalent, preservative free Jason Phelan MD Work Phone: [facility] 06-21-2017 influenza, high dose seasonal, preservative-free Jason Phelan MD Work Phone: [facility] 05-11-2016 influenza, injectabl e, quadrivalent, preservative free Jason Phelan MD Work Phone: [facility] 06-03-2015 influenza, injectabl e, quadrivalent, preservative free Jason Phelan MD Work Phone: [facility] 09-25-2009 novel influenza-H1N1 -09, preservative-free, injectable Jason Phelan MD Work Phone: [facility] Payers Date Payer Category Payer Unknown [facility] [id number] 2023-Present [address] [address] [place] [address] [id number] 2022 Private Health Insurance [facility] [id number] 2022 Unknown [id number] 1965 Unknown [id number] 1965 Unknown [id number] 1965 Unknown [id number] 1965 Unknown [id number] 1965 Unknown [id number] 1965 Unknown [id number] 1965 Unknown [id number] 1963 Unknown [id number] 1959 Unknown [id number] Social History Date Type Detail Facility Start: 06-06-2023 End: 06-12-2024 Tobacco smoking status NHIS Ex-smoker [facility] Start: 08-23-1979 End: 08-23-2009 History of tobacco use Current smoker [facility] Start: 08-23-1979 End: 08-23-2009 History of tobacco use Cigarette Smoker [facility] Start: 06-06-2023 End: 06-12-2024 Tobacco use and exposure Smokeless tobacco non-user [facility] Start: 06-14-2023 End: 06-19-2024 Alcohol intake Current drinker of alcohol (finding) [facility] Start: 09-30-2023 End: 06-12-2024 History of Social function [facility] Start: 09-30-2023 End: 06-12-2024 Humiliation, Afraid, Rape, and Kick questionnaire [HARK] [...] Not at all [facility] (I/We) worried lokesh er (my/our) food would run out before [...] of tobacco use Passive smoker [facility] History of Present illness Narrative 06-22-2024 Jason Phelan MD - 06/22/2024 3:30 PM EDT Note Date & Type Note Facility 06-22-2024 History of Presen t illness Narrative Images from the original note were not included. Patient ID: Fiorella Aguillon is a 58 y.o. female who presents for: Pt here today to review his/hers thyroid labs and any medication changes needed. Fatigue: Present, Unchanged Weight Gain: Absent Inability to lose weight: Present, Unchanged Hair Changes: Present He/She is following the thyroid diet: Good He/She are taking medications as directed: Good He/She are exercising at least 3 days out of the week for 30 minutes or more: Good Review of Systems Constitutional: Positive for fatigue. Negative for appetite change. HENT: Negative for trouble swallowing and voice change. Cardiovascular: Negative for palpitations. Musculoskeletal: Negative for arthralgias and myalgias. Psychiatric/Behavioral: Negative for sleep disturbance. The patient is not nervous/anxious. Endocrine: Negative for cold intolerance and heat intolerance. [facility] Result Encounter on 06/12/2024 Component Date Value Ref Range Status MISCELLANEOUS TEST 06/12/2024 COMMENT . Final Comment: Test Ordered: [id number] SWATHI, IFA Rfx 11 Manuel Multiplex SWATHI by IFA Rfx Titer/Pattern Negative Reference Range: . Negative <1:80 Borderline 1:80 Positive >1:80 ICAP nomenclature: AC-0 For more information about Hep-2 cell patterns use ANApatterns.org, the official website for the International Consensus on Antinuclear Antibody (SWATHI) Patterns (ICAP). Performed at: [facility] [id number] Claim Approver: Lalit Budren PhD, Phone: [phone] TBH TRIIODOTHYRONINE (T3) 06/12/2024 61 (A) 71 - 180 ng/dL Final Comment: Performed at: [facility] [id number] Claim Approver: Lalit Burden PhD, Phone: [phone] REVERSE T3, SERUM 06/12/2024 12.5 9.2 - 24.1 ng/dL Final Comment: This test was developed and its performance characteristics determined by [employer]. It has not been cleared or approved by the Food and Drug Administration. Performed at: [facility] [employer] [id number] Claim Approver: Margaret Rene MD, Phone: [phone] THYROID PEROXIDASE (TPO) AB 06/12/2024 10 0 - 34 IU/mL Final THYROGLOBULIN ANTIBODY 06/12/2024 <1.0 0.0 - 0.9 IU/mL Final Comment: Thyroglobulin Antibody measured by [facility] It should be noted that the presence of thyroglobulin antibodies may not be pathogenic nor diagnostic, especially at very low levels. The assay records management coordinator has found that four percent of individuals without evidence of thyroid disease or autoimmunity will have positive TgAb levels up to 4 IU/mL. Performed at: [facility] [employer] [id number] Claim Approver: Lalit Burden PhD, Phone: [phone] [facility] Result Encounter on 06/12/2024 Component Date Value Ref Range Status TB[facility] WBC 06/12/2024 7.7 4.0 - 11.0 10 3/uL Final [facility] RBC 06/12/2024 4.94 4.20 - 5.40 10 6/uL Final [facility] HGB 06/12/2024 10.5 (L) 12.0 - 16.0 g/dL Final TBH HCT 06/12/2024 34.2 (L) 36.0 - 48.0 % Final [facility] MCV 06/12/2024 69.2 (L) 81.0 - 99.0 fL Final [facility] MCH 06/12/2024 21.3 (L) 26.7 - 34.0 pg Final [facility] MCHC 06/12/2024 30.7 29.9 - 35.2 g/dL Final [facility] RDW 06/12/2024 15.9 (H) 11.0 - 15.0 % Final [facility] PLT 06/12/2024 411 150 - 450 10 3/uL Final [facility] MPV 06/12/2024 10.3 9.5 - 13.5 fL Final NEUTROPHILS PERCENT AUTO 06/12/2024 61.4 43.0 - 75.0 % Final LYMPHOCYTES PERCENT AUTO 06/12/2024 28.9 20.5 - 60.0 % Final MONOCYTES PERCENT AUTO 06/12/2024 6.9 1.7 - 12.0 % Final TBH EO % 06/12/2024 2.1 0.9 - 7.0 % Final BASOPHILS PERCENT AUTO 06/12/2024 0.4 0.2 - 2.0 % Final IMMATURE GRANULOCYTES PCT AUTO 06/12/2024 0.3 0.0 - 0.5 % Final NEUTROPHILS ABSOLUTE AUTO 06/12/2024 4.7 1.4 - 6.5 10 3/uL Final LYMPHOCYTES ABSOLUTE AUTO 06/12/2024 2.2 1.2 - 3.8 10 3/uL Final MONOCYTES ABSOLUTE AUTO 06/12/2024 0.5 0.3 - 0.8 10 3/uL Final TBH EO # 06/12/2024 0.2 0.0 - 0.7 10 3/uL Final BASOPHILS ABSOLUTE AUTO 06/12/2024 0.0 0.0 - 0.1 10 3/uL Final IMMATURE GRANULOCYTES ABS AUTO 06/12/2024 0.02 0.00 - 0.03 10 3/uL Final TBH SED RATE 06/12/2024 13 <=30 mm/hr Final FREE T3 06/12/2024 2.03 (L) 2.18 - 3.98 pg/mL Final THYROID STIMULATING HORMONE 06/12/2024 1.497 0.358 - 3.740 uIU/mL Final VITAMIN D 06/12/2024 48.8 ng/mL Final Comment: <20 ng/mL Vit D deficient 20-<30 ng/mL Vit D insufficient 30-100 ng/mL Vit D sufficient >100 ng/mL Potential Toxicity FREE T4 06/12/2024 0.71 (L) 0.76 - 1.46 ng/dL Final Calculated THY Ratio: not done as hypothyroid Objective The patient is pleasant and in no acute distress The patient does not appear to have a gross neurologic deficit. The patient has good eye contact and clear speech Visit Vitals OB Status Postmenopausal Smoking Status Former Allergies Allergen Reactions Sulfamethoxazole Other Reaction(s): swelling vaginal Trimethoprim Other Reaction(s): vaginal smelling Current Outpatient Medications on File Prior to Visit Medication Sig Dispense Refill ALPRAZolam (Xanax) 0.25 MG tablet Take 1 tablet (0.25 mg) by mouth 3 (three) times a day as needed for anxiety for up to 10 days 15 tablet 0 citalopram (CeleXA) 40 MG tablet Take 1 tablet (40 mg) by mouth Daily 90 tablet 1 Hormone Cream Base (HRT Cream Base Women) cream Use 1 mL nightly days 1 through 25 of the month 0 meclizine (Antivert) 25 MG tablet Take 25 mg by mouth every 8 (eight) hours. No current facility-administered medications on file prior to visit. 1. Central hypothyroidism (CMS/HCC) New, chronic problem. Previously established normal TSH. This is an face of low T4 and low T3. This is a clinical diagnosis. She does not have autoimmune thyroid disease. We can not make the diagnosis of euthyroid sick syndrome until we get her euthyroid. We will start with levothyroxine and then in 3 weeks we will go ahead and just get a free T4 level, once this is in a normal range would do further testing. If not normal range we will adjust by phone. Because of this being central we are going to also check cortisol and ACTH. We are going to check an FSH because she is certainly menopausal this point it should be elevated and that can help us with the diagnosis. We are holding off on brain scan until we get this sorted a little bit better. There are no neurologic symptoms. In prescribing a new medication consideration of the following encompasses moderate decision making: the current prescriptions and supplements, the current allergies and medication intolerances, the current medical conditions, and potential drug interactions. Risks, benefits, and reason for starting their medication were discussed. The patient was given a chance to ask questions today and all questions were answered. The patient is to contact us if any other questions arise or if any problems occur with the adjustment in their medication. - levothyroxine (Synthroid) 75 MCG tablet; Take 1 tablet (75 mcg) by mouth in the morning. Take before meals. Dispense: 30 tablet; Refill: 0 - T4, free; Future - T4, free - Cortisol; Future - ACTH; Future - Cortisol - ACTH 2. Chronic fatigue - T4, free; Future - T4, free - Cortisol; Future - ACTH; Future - FSH; Future - Cortisol - ACTH - FSH 3. Iron deficiency anemia secondary to inadequate dietary iron intake She is anemic with an elevated RDW. She does not eat a lot of Red meat. Upon review she also had a previously normal colonoscopy. No change in her bowel movements and no upper GI symptomatology. She did not at home occult blood test which was negative. I think she needs iron replacement. She is not critical so we do not need to utilize intravenous iron. We talked about the pros and cons of prescription iron versus supplemental iron. She would prefer to go with supplemental iron. She is to start iron this glycinate ( chelated iron ) 1 twice daily with meals. 4. Amenorrhea (Primary) We are going to order this test not to establish whether she is menopausal or not, but to see in her menopausal state if she has not elevated FSH. - FSH; Future - FSH documented in this encounter [facility] History of Present illness Narrative 06-19-2024 Jason Phelan MD - 06/19/2024 3:30 PM EDT Note Date & Type Note Facility 06-19-2024 History of Presen t illness Narrative Images from the original note were not included. Patient ID: Fiorella Aguillon is a 58 y.o. female who presents for: Symptoms include: none, She does note the occasional hot flash but is unsure if this is related. No vaginal complaints. Severity: 0 Feels better since starting HRT treatment: Yes Other Symptoms: none Date of Last Mammogram: 05/2024 Review of Systems Constitutional: Positive for fatigue. Breasts: Negative for breast mass and breast discharge. Genitourinary: Negative for difficulty urinating, frequency, urgency, vaginal discharge and vaginal pain. Skin: Negative for rash. Neurological: Negative for light-headedness and headaches. Objective The patient is pleasant and in no acute distress The patient does not appear to have a gross neurologic deficit. The patient has good eye contact and clear speech Visit Vitals Ht 5' 4 Wt 146 lb 8 oz BMI 25.15 kg/m OB Status Postmenopausal Smoking Status Former BSA 1.73 m Allergies Allergen Reactions Sulfamethoxazole Other Reaction(s): swelling vaginal Trimethoprim Other Reaction(s): vaginal smelling Current Outpatient Medications on File Prior to Visit Medication Sig Dispense Refill ALPRAZolam (Xanax) 0.25 MG tablet Take 1 tablet (0.25 mg) by mouth 3 (three) times a day as needed for anxiety for up to 10 days 15 tablet 0 citalopram (CeleXA) 40 MG tablet Take 1 tablet (40 mg) by mouth Daily 90 tablet 1 Hormone Cream Base (HRT Cream Base Women) cream Use 1 mL nightly days 1 through 25 of the month 0 meclizine (Antivert) 25 MG tablet Take 25 mg by mouth every 8 (eight) hours. No current facility-administered medications on file prior to visit. 1. Hot flashes due to menopause (Primary) Chronic problem that has virtually resolved for her. She is pleased with the treatment. 2. Hormone replacement therapy Chronic problem, unstable, with complex medical decision making . I have reviewed the [facility] urine hormone profile. I have made notations on the patient's copy to help them remember this complex testing and the complex hormone interactions. I then reviewed this with the patient or their senior outside sales representative. I have educated them concerning the lab results and how they relate to their current hormonal status. I have reviewed with them any need to adjust, stop, or start new prescriptions or supplements. In prescribing an adjustment to their current medication, consideration of the following encompasses moderate decision making; the current prescriptions and supplements, the current allergies and medication intolerances, the current medical conditions, and potential drug interactions. If the adjusted medication is considered a controlled substance, then the OARRS and NARX scores are obtained and reviewed. Risks, benefits, and reason for adjusting their current medication were discussed. I have discussed the issues concerning some treatments as not being the standard of care. I have reviewed any cancer risks as appropriate. We have discussed that any supplements recommended have not undergone review or approval by the FDA and, therefore, have not been documented to be safe or effective to diagnose, treat, prevent, mitigate, or cure any condition or disease. The patient was given a chance to ask questions today and all questions were answered. The patient is to contact us if any other questions arise or if any problems occur with the adjustment in their medication. documented in this encounter [facility] History of Present illness Narrative 06-12-2024 Jason Phelan MD - 06/12/2024 9:30 AM EDT Note Date & Type Note Facility 06-12-2024 History of Presen t illness Narrative Images from the original note were not included. Patient ID: Fiorella Aguillon is a 58 y.o. female who presents for: See Scanned Wellness packet Advance Directive/Living Will: Yes Health Care Power of Scale Agent: Yes Review of Systems Constitutional: Negative for appetite change, chills, fever and unexpected weight change. Breasts: Negative for breast mass and breast discharge. Respiratory: Negative for cough, shortness of breath and wheezing. Cardiovascular: Negative for chest pain, palpitations and leg swelling. Gastrointestinal: Negative for abdominal pain, constipation and diarrhea. Genitourinary: Positive for urgency. Negative for frequency. Neurological: Negative for light-headedness and headaches. Psychiatric/Behavioral: Negative for behavioral problems and sleep disturbance. The patient is not nervous/anxious. She is complaining of overwhelming fatigue since early summer or late spring. She is sleeping more during the night and trying to get naps when she can. She has also noticed some nonspecific migratory arthralgias especially bilateral knees. She brings this to my attention along with the rash that she has not noticed diffusely that seems to be worsening. Objective The patient is pleasant and in no acute distress. The head is normocephalic and atraumatic. Both eyes appear grossly normal without obvious lid pathology or icterus. Both ears hearing is grossly intact. The neck is supple and trachea is midline. No masses are appreciated. The thyroid is not enlarged and has normal texture. However, in the left upper lobe there is a small maybe BB-sized to pea size nodule. The anterior cervical lymphatics demonstrates shoddy bilateral nontender lymphadenopathy. There is no supraclavicular lymphadenopathy. The heart is regular rate and rhythm without S3, S4. No murmur. The patient has normal respiratory pattern. The breath sounds are symmetrical without evidence of rhonchi or rales. No wheezing. The skin is warm and dry. 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 She also has a pink macular lacy dermatitis In all of these areas also. No pitting of her nails. No evidence of psoriasis. The lower extremities have trace edema. Neurologic screening exam is nonfocal. The patient is alert. There is no overt gross evidence of cognitive impairment The patient has good eye contact and speech is clear. Appropriate affect. Visit Vitals BP 120/70 Pulse 68 Ht 5' 4 Wt 146 lb 8 oz SpO2 98% BMI 25.15 kg/m OB Status Postmenopausal Smoking Status Former BSA 1.73 m Allergies Allergen Reactions Sulfamethoxazole Other Reaction(s): swelling vaginal Trimethoprim Other Reaction(s): vaginal smelling Current Outpatient Medications on File Prior to Visit Medication Sig Dispense Refill ALPRAZolam (Xanax) 0.25 MG tablet Take 1 tablet (0.25 mg) by mouth 3 (three) times a day as needed for anxiety for up to 10 days 15 tablet 0 citalopram (CeleXA) 40 MG tablet Take 1 tablet (40 mg) by mouth Daily 90 tablet 1 Hormone Cream Base (HRT Cream Base Women) cream Use 1 mL nightly days 1 through 25 of the month 0 meclizine (Antivert) 25 MG tablet Take 25 mg by mouth every 8 (eight) hours. No current facility-administered medications on file prior to visit. 1. Encounter for wellness examination in adult (Primary) I have reviewed the patients PMShx, medications, and reconciled the problem list. Health maintenance and risk was reviewed and discussed. I also reviewed and discussed as appropriate; immunizations, colon cancer screening, breast and cervical cancer screening, recommended and any current lab evaluation. All items were brought up to date unless declined by the patient. 2. Advance directive in chart No changes to advanced directives 3. Screening for diabetes mellitus (DM) - Comprehensive metabolic panel; Future - Comprehensive metabolic panel 4. Screening for lipid disorders - Lipid panel; Future - Lipid panel 5. Screening mammogram, encounter for Reviewed and no new changes, benign-appearing. 6. Former smoker Continue nonsmoking 7. Dermatitis New, Chronic problem that I have discussed with her. Most doctors would write this off as normal variant. However from an integrative medicine approach we sometimes see this in an immune system over reaction to Bartonella. 8. Freitas angioma New, Chronic problem that I have discussed with her. While most people will get a couple of these as they age, having as many as she has is not in the normal range,Most doctors would write this off as normal variant. However from an integrative medicine approach we sometimes see this in an immune system over reaction to Babesia. 9. Chronic fatigue Chronic problem, unstable, complex in nature with moderate decision making. I discussed with the patient or their senior outside sales representative, their fatigue issues. We discussed how this is almost always chronic and by definition must have been in place for 6 weeks in order to be considered chronic fatigue. We discussed how this is almost always a multifactorial problem. We discussed that the patient will almost certainly need to make lifestyle changes including diet, sleep, exercise, and stress management. We further discussed how we will search for underlying disease processes and then support or treat them as appropriate. We discussed how we can frequently improve the symptoms, but may not be able to completely cure or resolve the issue. The patient was given a chance to ask questions and all questions were answered. - Vitamin D 25 hydroxy; Future - CBC and differential; Future - Thyroglobulin Antibody; Future - Thyroid peroxidase antibody; Future - Vitamin D 25 hydroxy - CBC and differential - Thyroglobulin Antibody - Thyroid peroxidase antibody - T3; Future - T3, free; Future - T3, reverse; Future - T4, free; Future - TSH; Future - T3 - T3, free - T3, reverse - T4, free - TSH - US thyroid; Future 10. Arthralgia, unspecified joint - SWATHI MULTIPLEX W/REFLEX 11 AB CASCADE; Future - Sedimentation rate, automated; Future - Vitamin D 25 hydroxy; Future - SWATHI MULTIPLEX W/REFLEX 11 AB CASCADE - Sedimentation rate, automated - Vitamin D 25 hydroxy 11. Thyroid nodule (CMS/HCC) While I do suspect the physical exam findings are benign, with a newly diagnosed clinical mass that appears to be consistent with a nodule we do need an ultrasound to define anatomy. - T3; Future - T3, free; Future - T3, reverse; Future - T4, free; Future - TSH; Future - T3 - T3, free - T3, reverse - T4, free - TSH - US thyroid; Future documented in this encounter [facility] Evaluation note Note Date & Type Note Facility Evaluation note Diagnosis Encounter for wellness examination in adult Advance directive in chart Screening for diabetes mellitus (DM) Screening for diabetes mellitus Screening for lipid disorders Screening mammogram, encounter for Former smoker Personal history of tobacco use, presenting hazards to health Dermatitis Contact dermatitis and other eczema, due to unspecified cause Freitas angioma Chronic fatigue Other malaise and fatigue Arthralgia, unspecified joint Thyroid nodule (CMS/HCC) Nontoxic uninodular goiter documented in this encounter [facility] Evaluation note Note Date & Type Note Facility Evaluation note Diagnosis Hot flashes due to menopause- Primary Hormone replacement therapy documented in this encounter [facility] Evaluation note Note Date & Type Note Facility Evaluation note Diagnosis Amenorrhea- Primary Absence of menstruation Central hypothyroidism (CMS/HCC) Unspecified hypothyroidism Chronic fatigue Other malaise and fatigue Iron deficiency anemia secondary to inadequate dietary iron intake documented in this encounter [facility] Summary Purpose Family History No Family History Records FoundNo Family History Records Found Advance Directives Documents on File Type Date Recorded 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 Advance Directives and Living Will 08/29/2019 2019-08-26 Living Wi ll Advance Directives and Living Will 08/29/2019 2019-08-26 Power Of Scale Agent Additional Source Comments INFORMATION SOURCE (unrecogn ized section and content) DATE CREATED AUTHOR 07/04/2022 [facility] DATE CREATED AUTHOR AUTHOR'S ORGANIZ ATION 06/24/2024 [facility] Care Teams (unrecognized sec tion and content) Complex Director Relationship Specialty Start Date End Date Jason Phelan MD [address] [place] [address] (Fax) PCP - General Family Medicine 01/04/23 Complex Director Relationship Specialty Start Date End Date Jason Phelan MD [address] [place] [address] (Fax) PCP - General Family Medicine 01/04/23 Complex Director Relationship Specialty Start Date End Date Jason Phelan MD [address] [facility] [place] [address] (Fax) PCP - General Family Medicine 01/04/23 Complex Director Relationship Specialty Start Date End Date Jason Phelan MD [address] [place] [address] (Fax) PCP - General Family Medicine 01/04/23 Complex Director Relationship Specialty Start Date End Date Jason Phelan MD [address] [place] [address] (Fax) PCP - General Family Medicine 01/04/23 Complex Director Relationship Specialty Start Date End Date Jason Phelan MD [address] [place] [address] (Fax) PCP - General Family Medicine 01/04/23 Complex Director Relationship Specialty Start Date End Date Jason Phelan MD [address] [place] [address] (Fax) PCP - General Family Medicine 01/04/23 Complex Director Relationship Specialty Start Date End Date Jason Phelan MD [address] [place] [address] (Fax) PCP - General Family Medicine 01/04/23 Reason for Visit (unrecogniz ed section and content) Reason Comments Annual Exam Reason Comments Hormones FOR RECORDS PERTAINING TO PATIENTS WHO ARE [...] BE BASED ON THE PRIMARY CLINICAL RECORDS. [facility] [employer] [facility]. provides no warranty or guarantee of the accuracy or completeness of information in this document.
[2024-06-30 12:02] LABS: Alanine Aminotransferase 18 U/L (14-59); Albumin Globulin Ratio 1.2; Alkaline Phosphatase 36 U/L (46-116); Anion Gap 11.8; Aspartate Amino Transferase 14 U/L (15-37); Bilirubin Total 0.7 mg/dL (0.2-1.0); Carbon Dioxide 30.6 mmol/L (21.0-32.0); Chloride 106 mmol/L (98-107); Chol HDL Ratio 3.7; Cholesterol 175 mg/dL (<=200); Estimated GFR (African America >60 (>=60 mL/min/1.73m^2); Estimated GFR (Non-African Ame >60 (>=60 mL/min/1.73m^2); Globulin 3.4 g/dL; Glucose 90 mg/dL (74-106); HDL Cholesterol 47 mg/dL (40-60); Potassium 4.4 mmol/L (3.5-5.1); Sodium 144 mmol/L (136-145); Total Protein 7.4 g/dL (6.4-8.2); Triglycerides 50 mg/dL (<=150)
== END 2024-06-30 10:48 | disposition home or self-care (01) ==
LOC: US 10:47
PROVIDERS: PCP Family Medicine; Visit Provider Family Medicine
DX: R53.82 Chronic fatigue, unspecified (principal); E04.1 Nontoxic single thyroid nodule; Z13.220 Encounter for screening for lipoid disorders; Z13.1 Encounter for screening for diabetes mellitus
CPT/HCPCS: 36415; 76536; 80053; 80061

== ENCOUNTER 2024-07-01 07:16 | Outpatient (OUT) | payer OTHER, SELFPAY ==
--- OUTSIDE RECORDS SUMMARY | 2024-06-30 11:29 | XMS_ITS | CCD ---
Author Organization [facility] Inform ion Partnership [facility] Care Team Providers Care Ncr Operator Name Role Phone ZHANE, DR JOYA Admitting [...] Provider Jason Phelan MD Primary Care Provider [phone] JASON PHELAN Attending Unavailable JASON PHELAN Attending Unavailable JASON PHELAN Attending Unavailable JASON PHELAN Attending Unavailable JASON PHELAN Attending Unavailable Allergies Allergy Classification Reported Allergen(s) Allergy Type Date of Onset Reaction(s) Facility (12 sources) Sulfamethoxazole Allergy to substance 3 [facility] Healthcare (12 sources) Trimethoprim Drug Allergy 3 [facility] Medications Current Medications Medication Drug Class(es) Dates [...] WITH AUTO DIFFon BASOPHILS ABSOLUTE AUTO 0 [facility] Basophils/100 WBC (Bld) 0.4 % 0.2 - 2.0 % [facility] Eosinophils/100 WBC (Bld) 2.1 % 0.9 - 7.0 % [facility] Erythrocyte distribution width (RBC) [Ratio] 15.9 % High 11.0 - 15.0 % [facility] Hematocrit (Bld) [Volume fraction] 34.2 % Low 36.0 - 48.0 % [facility] (Bld) [Mass/Vol] 10.5 g/dL Low 12.0 - 16.0 g/dL [facility] IMMATURE GRANULOCYTES ABS AUTO 0.02 [facility] Immature granulocytes/100 WBC (Bld) 0.3 % 0.0 - 0.5 % [facility] Interpretation and review of laboratory results Abnormal [facility] LYMPHOCYTES ABSOLUTE AUTO 2.2 [facility] Lymphocytes/100 WBC (Bld) 28.9 % 20.5 - 60.0 % [facility] MCH (RBC) [Entitic mass] 21.3 pg Low 26.7 - 34.0 pg [facility] MCHC (RBC) [Mass/Vol] 30.7 g/dL 29.9 - 35.2 g/dL [facility] MCV (RBC) [Entitic vol] 69.2 fL Low 81.0 - 99.0 fL [facility] Monocytes/100 WBC (Bld) 6.9 % 1.7 - 12.0 % [facility] NEUTROPHILS ABSOLUTE AUTO 4.7 [facility] Neutrophils/100 WBC (Bld) 61.4 % 43.0 - 75.0 % [facility] Platelet mean volume (Bld) [Entitic vol] 10.3 fL 9.5 - 13.5 fL [facility] are [facility] EO # 0.2 [facility] [...] Low fracture risk Electronically authenticated by: CHANTE CROTEZ Date: 2022-06-29 17:06 Normal [facility] PAP ACOG PANEL 2: 30 to 65on 06-06-2022 . . Normal [facility] Comment on above: Result Comment: Perf ormed at: WB Performed By: #### [id number] #### [facility] [address] [place] [address] Dr. May Tabor Age Gdln ACOG Testing 30-65 Normal [facility] Comment on above: Performed By: #### [id number] #### [facility] [address] [address] [address] May Tabor DIAGNOSIS: Comment Normal [facility] Comment on above: Result Comment: NEGA TIVE FOR INTRAEPITHELIAL LESION OR MALIGNANCY. Performed at: WB Performed By: #### [id number] #### [facility] [address] [address] [address] May Tabor HPV Aptima Negative Normal Negative [facility] Comment on above: Result Comment: This nucleic acid amplification test detects fourteen high-risk HPV types (16,18,31,33,35,39,45,51,52,56,58,59,66,68) without differentiation. Performed at: =G Performed By: #### [id number] #### [facility] [address] [place] [address] Dr. May Tabor Methodology: Comment Normal [facility] Comment on above: Result Comment: This liquid based ThinPrep(R) pap test was screened with the use of an image guided system. Performed at: WB Performed By: #### [id number] #### [facility] [address] [place] [address] Dr. May Tabor Note: Comment Normal [facility] Comment on above: Result Comment: The Pap smear is a screening test designed to aid in the detection of premalignant and malignant conditions of the uterine cervix. It is not a diagnostic procedure and should not be used as the sole means of detecting cervical cancer. Both false-positive and false-negative reports do occur. . Performed at: WB Performed By: #### [id number] #### [facility] [address] [place] [address] Dr. May Tabor Performed by: Comment Normal [facility] Comment on above: Result Comment: Amna Joyce Circulation Assistant (ASCP) Performed at: WB Performed By: #### [id number] #### [facility] [address] [place] [address] Dr. May Tabor Specimen adequacy: Comment Normal [facility] Comment on above: Result Comment: Sati sfactory for evaluation. Endocervical and/or squamous metaplastic cells (endocervical component) are present. Performed at: WB Performed By: #### [id number] #### [facility] [address] [place] [address] Dr. May Tabor MG MAMM SCREEN 3D ALLYSON CADon 06-01-2022 MG MAMM SCREEN 3D ALLYSON CAD Patient: SONAL AGUILLON Exam Date: 06/01/2022 : 1965 Gender:F Ordering : DR JASON PHELAN . Admission #: [id number] Family : Order #: [id number] CLICK HERE TO VIEW EXAM RADIOLOGY REPORT [...] pancreatic cancer at age 58. LOCATION: [facility] BREAST COMPOSITION: Scattered areas fibroglandular density. FINDINGS: [...] MD on 06/01/2022 at 14:14 Normal [facility] Vital Signs Date Time Vital Sign Value Performing Clinician Faci lity 06-19-2024 15:24-0400 Body height 162.6 cm Jason Phelan MD Work Phone: [facility] 06-19-2024 15:24-0400 Body mass index (BMI) [Ratio] 25.15 kg/m2 Jason Phelan MD Work Phone: [facility] 06-19-2024 15:24-0400 Body weight 66.45 kg Jason Phelan MD Work Phone: [facility] 06-12-2024 09:26-0400 Body height 162.6 cm Jason Phelan MD Work Phone: [facility] 06-12-2024 09:26-0400 Body mass index (BMI) [Ratio] 25.15 kg/m2 Jason Phelan MD Work Phone: [facility] 06-12-2024 09:26-0400 Body weight 66.45 kg Jason Phelan MD Work Phone: [facility] 06-12-2024 09:26-0400 Diastolic blood pressure 70 mm[Hg] Jason Phelan MD Work Phone: [facility] 06-12-2024 09:26-0400 Heart rate 68 /min Jason Phelan MD Work Phone: [facility] 06-12-2024 09:26-0400 SaO2% (BldA) [Mass fraction] 98 % Jason Phelan MD Work Phone: [facility] 06-12-2024 09:26-0400 Systolic blood pressure 120 mm[Hg] Jason Phelan MD Work Phone: [facility] Healthcare Encounters Encounter Date Encounter Type Care [...] Screening for malign ant neoplasm of colon [facility] Start: 06-12-2025 Screening for malign ant neoplasm of breast Mammogram [facility] Start: 06-12-2025 Screening for malign ant neoplasm of cervix Cervical Cancer Screening [facility] Comment on above: Postponed from 08/25 (Other Medical Reasons) Start: 09-19-2024 End: 09-19-2024 Patient encounter procedure [facility] Start: 07-17-2024 End: 07-17-2024 Patient encounter procedure 07/17/2024 9:00 AM EST Office Visit [facility] [address] [place] [address] Jason Phelan MD [address] [place] [address] (Fax) [facility] Start: 07-06-2024 End: 07-06-2024 Patient encounter procedure 07/06/2024 3:30 PM EST Office Visit [facility] [address] [place] [address] Jason Phelan MD [address] [place] [address] [facility] Start: 06-22-2024 End: 06-22-2024 Patient encounter procedure [facility] Comment on above: Central hypothyroidi sm (CMS/HCC); Chronic fatigue; Former smoker Start: 06-22-2024 End: 06-22-2025 ACTH ACTH Lab Routine Central hypothyroidism (CMS/HCC) Chronic fatigue Expected: 06/22/2024 (Approximate), Expires: 06/22/2025 [facility] Comment on above: Expected: 06/22/2024 (Approximate), Expires: 06/22/2025 Start: 06-22-2024 End: 06-22-2025 Cortisol Cortisol Lab Routine Central hypothyroidism (CMS/HCC) Chronic fatigue Expected: 06/22/2024 (Approximate), Expires: 06/22/2025 [facility] Comment on above: Expected: 06/22/2024 (Approximate), Expires: 06/22/2025 Start: 06-22-2024 End: 06-22-2025 FSH FSH Lab Routine Chronic fatigue Amenorrhea Expected: 06/22/2024 (Approximate), Expires: 06/22/2025 [facility] Comment on above: Expected: 06/22/2024 (Approximate), Expires: 06/22/2025 Start: 06-22-2024 End: 06-22-2025 Thyroxine (T4) free [Mass/volume] in Serum or Plasma T4, free Lab Routine Central hypothyroidism (CMS/HCC) Chronic fatigue Expected: 06/22/2024 (Approximate), Expires: 06/22/2025 [facility] Work Phone: Comment on above: Expected: 06/22/2024 [...] unspecified joint Expected: 06/12/2024 (Approximate), Expires: 06/12/2025 [facility] Work Phone: Comment on above: Expected: 06/12/2024 (Approximate), Expires: 06/12/2025 Start: 06-12-2024 End: 06-12-2025 CBC W Auto Differential panel - Blood CBC and differential Lab Routine Chronic fatigue Expected: 06/12/2024 (Approximate), Expires: 06/12/2025 [facility] Comment on above: Expected: 06/12/2024 (Approximate), Expires: 06/12/2025 Start: 06-12-2024 End: 06-12-2025 Comprehensive metabolic 2000 panel - Serum or Plasma Comprehensive metabolic panel Lab Routine Screening for diabetes mellitus (DM) Expected: 06/12/2024 (Approximate), Expires: 06/12/2025 [facility] Comment on above: Expected: 06/12/2024 (Approximate), Expires: 06/12/2025 Start: 06-12-2024 End: 06-12-2025 Erythrocyte sedimentation rate Sedimentation rate, automated Lab Routine Arthralgia, unspecified joint Expected: 06/12/2024 (Approximate), Expires: 06/12/2025 [facility] Comment on above: Expected: 06/12/2024 (Approximate), Expires: 06/12/2025 Start: 06-12-2024 End: 06-12-2025 Lipid 1996 panel - Serum or Plasma Lipid panel Lab Routine Screening for lipid disorders Expected: 06/12/2024 (Approximate), Expires: 06/12/2025 [facility] Comment on above: Expected: 06/12/2024 (Approximate), Expires: 06/12/2025 Start: 06-12-2024 End: 06-12-2025 T3, reverse T3, reverse Lab Routine Chronic fatigue Thyroid nodule (CMS/HCC) Expected: 06/12/2024 (Approximate), Expires: 06/12/2025 [facility] Comment on above: Expected: 06/12/2024 (Approximate), Expires: 06/12/2025 Start: 06-12-2024 End: 06-12-2025 Thyroglobulin Antibody Thyroglobulin Antibody Lab Routine Chronic fatigue Expected: 06/12/2024 (Approximate), Expires: 06/12/2025 [facility] Comment on above: Expected: 06/12/2024 (Approximate), Expires: 06/12/2025 Start: 06-12-2024 End: 06-12-2025 Thyroid peroxidase antibody Thyroid peroxidase antibody Lab Routine Chronic fatigue Expected: 06/12/2024 (Approximate), Expires: 06/12/2025 [facility] Comment on above: Expected: 06/12/2024 (Approximate), Expires: 06/12/2025 Start: 06-12-2024 End: 06-12-2025 Thyrotropin [Units/volume] in Serum or Plasma TSH Lab Routine Chronic fatigue Thyroid nodule (CMS/HCC) Expected: 06/12/2024 (Approximate), Expires: 06/12/2025 [facility] Comment on above: Expected: 06/12/2024 (Approximate), Expires: 06/12/2025 Start: 06-12-2024 End: 06-12-2025 Thyroxine (T4) free [Mass/volume] in Serum or Plasma T4, free Lab Routine Chronic fatigue Thyroid nodule (CMS/HCC) Expected: 06/12/2024 (Approximate), Expires: 06/12/2025 [facility] Comment on above: Expected: 06/12/2024 (Approximate), Expires: 06/12/2025 Start: 06-12-2024 End: 06-12-2025 Triiodothyronine (T3) [Mass/volume] in Serum or Plasma T3 Lab Routine Chronic fatigue Thyroid nodule (CMS/HCC) Expected: 06/12/2024 (Approximate), Expires: 06/12/2025 [facility] Comment on above: Expected: 06/12/2024 (Approximate), Expires: 06/12/2025 Start: 06-12-2024 End: 06-12-2025 Triiodothyronine (T3) Free [Mass/volume] in Serum or Plasma T3, free Lab Routine Chronic fatigue Thyroid nodule (CMS/HCC) Expected: 06/12/2024 (Approximate), Expires: 06/12/2025 [facility] Comment on above: Expected: 06/12/2024 (Approximate), Expires: 06/12/2025 Start: 06-12-2024 End: 06-12-2025 US Thyroid gland US thyroid Imaging Routine Chronic fatigue Thyroid nodule (CMS/HCC) Expected: 06/12/2024, Expires: 06/12/2025 [facility] Comment on above: Expected: 06/12/2024 , Expires: 06/12/2025 Start: 06-12-2024 End: 06-12-2024 Patient encounter procedure 06/12/2024 9:30 AM EDT Office Visit [facility] [address] [id number] Jason Phelan MD [address] [place] [address] Encounter for wellness examination in adult; Advance [...] for malign ant neoplasm of breast Mammogram [facility] Start: 04-23-2024 Influenza vaccination Influenza Vacc ine (#1) [facility] Start: 10-07-2023 End: 10-07-2023 Patient encounter procedure [facility] Comment on above: Generalized anxiety disorder (CMS/HCC); Former smoker; BMI 25.0-25.9,adult Start: 1993 Screening for malign ant neoplasm of cervix [facility] Start: 1984 Screening for malign ant neoplasm of cervix Pap Smear [facility] Start: 1965 Screening for malign ant neoplasm of colon [facility] Immunizations Immunization Date Immunization Notes Care Provider Fa cility 05-26-2024 influenza, seasonal, injectable, preservative free Jason Phelan MD Work Phone: [facility] 05-29-2023 Influenza, injectabl e, Madin Jesika Canine Kidney, preservative free, quadrivalent Jason Phelan MD Work Phone: [facility] 05-29-2023 influenza virus vacc ine, unspecified formulation Jason Phelan MD Work Phone: [facility] 06-10-2022 influenza, injectabl e, quadrivalent, preservative free Jason Phelan MD Work Phone: [facility] 08-22-2021 zoster vaccine recombinant Jason Phelan MD Work Phone: [facility] 06-20-2021 zoster vaccine recombinant Jason Phelan MD Work Phone: [facility] 06-04-2021 influenza, seasonal, injectable Jason Phelan MD Work Phone: [facility] 06-11-2020 influenza, injectabl e, quadrivalent, preservative free Jason Phelan MD Work Phone: [facility] 06-19-2019 influenza, injectabl e, quadrivalent, preservative free Jason Phelan MD Work Phone: [facility] 06-04-2018 influenza, injectabl e, quadrivalent, preservative free Jason Phelan MD Work Phone: [facility] 06-21-2017 influenza, high dose seasonal, preservative-free Jason Phelan MD Work Phone: [facility] 05-11-2016 influenza, injectabl e, quadrivalent, preservative free Jason Phelan MD Work Phone: [facility] 06-03-2015 influenza, injectabl e, quadrivalent, preservative free Jason Phelan MD Work Phone: [facility] 09-25-2009 novel influenza-H1N1 -09, preservative-free, injectable Jaosn Phelan MD Work Phone: [facility] Payers Date Payer Category [facility]ayer [id number]Present [address] [address] [place] [address] [id number] 2022 Private Health Insurance [facility] [id number] 2022 Unknown [id number] 1965 Unknown [id number] [id number] 1965 Unknown [id number] [id number] 1965 Unknown [id number] [id number] 1965 Unknown [id number] [id number] 1965 Unknown [id number] [id number] 1963 Unknown [id number] [id number] 1963 Unknown [id number] [id number]. 2.9 1965 Unknown [id number] [id number] 1959 Unknown [id number] Social History Date Type Detail Facility Start: [...] 06/12/2024 COMMENT . Final Comment: Test Ordered: [id number] SWATHI, IFA Rfx 11 Manuel Multiplex SWATHI by IFA Rfx Titer/Pattern Negative Reference Range: . Negative <1:80 Borderline 1:80 Positive >1:80 ICAP nomenclature: AC-0 For more information about Hep-2 cell patterns use ANApatterns.org, the official website for the International Consensus on Antinuclear Antibody (SWATHI) Patterns (ICAP). Performed at: [facility] [id number] Carroter: Lalit Burden PhD, Phone: [phone] [facility] TRIIODOTHYRONINE (T3) 06/12/2024 61 (A) 71 - 180 ng/dL Final Comment: Performed at: [facility] [id number] Carroter: Lalit Burden PhD, Phone: [phone] REVERSE T3, SERUM 06/12/2024 12.5 9.2 - 24.1 ng/dL Final Comment: This test was developed and its performance characteristics determined by [employer]. It has not been cleared or approved by the Food and Drug Administration. Performed at: [facility] [id number] Carroter: Margaret Rene MD, Phone: [phone] THYROID PEROXIDASE (TPO) AB 06/12/2024 10 0 - 34 IU/mL Final THYROGLOBULIN ANTIBODY 06/12/2024 <1.0 0.0 - 0.9 IU/mL Final Comment: Thyroglobulin Antibody measured by [facility] Methodology It should be noted that the presence of thyroglobulin antibodies may not be pathogenic nor diagnostic, especially at very low levels. The assay nurses assistant has found that four percent of individuals without evidence of thyroid disease or autoimmunity will have positive TgAb levels up to 4 IU/mL. Performed at: [facility] [id number] Car[place]ter: Lalit Burden PhD, Phone: [phone] [facility] Result Encounter on 06/12/2024 Component Date [...] decision making . I have reviewed the [facility] urine hormone profile. I have made notations on the patient's copy to help them remember this complex testing and the complex hormone interactions. 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 I have educated them concerning [...] Directive/Living Will: Yes Health Care Power of Therapeutic Massage Technician: Yes Review of Systems Constitutional: Negative for [...] I discussed with the patient or their metals sales representative, their fatigue issues. We discussed [...] US thyroid; Future documented in this encounter [facility] Evaluation note Note Date & Type [...] Nontoxic uninodular goiter documented in this encounter [facility] Evaluation note Note Date & Type Note Facility Evaluation note Diagnosis Hot flashes due to menopause- Primary Hormone replacement therapy documented in this encounter 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 Advance Directives and Living Will 08/29/2019 2019-08-26 Living Wi ll Advance Directives and Living Will 08/29/2019 2019-08-26 Power Of Therapeutic Massage Technician Additional Source Comments INFORMATION SOURCE (unrecogn ized section and content) DATE CREATED AUTHOR 07/04/2022 [facility] DATE CREATED AUTHOR AUTHOR'S ORGANIZ ATION 06/24/2024 [facility] Care Teams (unrecognized sec tion and content) Ncr Operator Relationship Specialty Start Date End Date Jason Phelan MD [address] [place] [address] (Fax) PCP - General Family Medicine 01/04/23 Ncr Operator Relationship Specialty Start Date End Date Jason Phelan MD [address] [place] [address] (Fax) PCP - General Family Medicine 01/04/23 Ncr Operator Relationship Specialty Start Date End Date Jason Phelan MD [address] [facility] [place] [address] (Fax) PCP - General Family Medicine 01/04/23 Ncr Operator Relationship Specialty Start Date End Date Jason Phelan MD [address] [place] [address] (Fax) PCP - General Family Medicine 01/04/23 Ncr Operator Relationship Specialty Start Date End Date Jason Phelan MD [address] [place] [address] (Fax) PCP - General Family Medicine 01/04/23 Ncr Operator Relationship Specialty Start Date End Date Jason Phelan MD [address] [place] [address] (Fax) PCP - General Family Medicine 01/04/23 Ncr Operator Relationship Specialty Start Date End Date Jason Phelan MD [address] [place] [address] (Fax) PCP - General Family Medicine 01/04/23 Ncr Operator Relationship Specialty Start Date End Date Jason Phelan MD [address] [place] [address] (Fax) PCP - General Family Medicine 01/04/23 [...] ON THE PRIMARY CLINICAL RECORDS. [facility]. provides no warranty or guarantee of the accuracy or completeness of information in this document.
--- OUTSIDE RECORDS SUMMARY | 2024-07-01 07:19 | XMS_ITS | CCD ---
Author Organization [facility] Inform ion Partnership [facility] Care Team Providers Care Reconsignment Clerk Name Role Phone ZHANE, DR JOYA Admitting Unavailable HEMEYER, DR JOYA Attending Unavailable MISC, DR FONG Primary Care Unavailable HEMEYER, DR JOYA Consulting Unavailable WEST, DR CHANTE Montoya Consulting Unavailable HEMEYER, DR JOYA Admitting Unavailable HEMEYER, DR JOYA Attending Unavailable MISC, DR FONG Primary Care Unavailable JIMENEZYER, DR JOYA Consulting Unavailable WEST, DR CHANTE Montoya Consulting Unavailable KARASIK, DR ZAVALA Admitting Unavailable KARASIAlize, DR ZAVALA Attending Unavailable MISC, DR FONG Primary Care Unavailable KARASIAlize, DR ZAVALA Consulting Unavailable Jason Phelan MD Primary Care Provider [phone] Jason Phelan MD Primary Care Provider JASON PHELAN Attending Unavailable JASON PHELAN Attending Unavailable JASON PHELAN Attending Unavailable JASON PHELAN Attending Unavailable JASON PHELAN Attending Unavailable Allergies Allergy Classification Reported Allergen(s) Allergy Type Date of Onset Reaction(s) Facility (12 sources) Sulfamethoxazole Allergy to substance 3 [facility] Healthcare (12 sources) Trimethoprim Drug Allergy 3 [facility] Medications Current Medications Medication Drug [...] WITH AUTO DIFFon BASOPHILS ABSOLUTE AUTO 0 [facility] Basophils/100 WBC (Bld) 0.4 % 0.2 - 2.0 % [facility] Eosinophils/100 WBC (Bld) 2.1 % 0.9 - 7.0 % [facility] Erythrocyte distribution width (RBC) [Ratio] 15.9 % High 11.0 - 15.0 % [facility] Hematocrit (Bld) [Volume fraction] 34.2 % Low 36.0 - 48.0 % [facility] [Mass/Vol] 10.5 g/dL Low 12.0 - 16.0 g/dL [facility] IMMATURE GRANULOCYTES ABS AUTO 0.02 [facility] Immature granulocytes/100 WBC (Bld) 0.3 % 0.0 - 0.5 % [facility] Interpretation and review of laboratory results Abnormal [facility] LYMPHOCYTES ABSOLUTE AUTO 2.2 [facility] Lymphocytes/100 WBC (Bld) 28.9 % 20.5 - 60.0 % [facility] MCH (RBC) [Entitic mass] 21.3 pg Low 26.7 - 34.0 pg [facility] MCHC (RBC) [Mass/Vol] 30.7 g/dL 29.9 - 35.2 g/dL [facility] MCV (RBC) [Entitic vol] 69.2 fL Low 81.0 - 99.0 fL [facility] Monocytes/100 WBC (Bld) 6.9 % 1.7 - 12.0 % [facility] NEUTROPHILS ABSOLUTE AUTO 4.7 [facility] Neutrophils/100 WBC (Bld) 61.4 % 43.0 - 75.0 % [facility] Platelet mean volume (Bld) [Entitic vol] 10.3 fL 9.5 - 13.5 fL [facility] are [facility] EO # 0.2 [...] by: CHANTE CORTEZ Date: 2022-06-29 17:06 Normal [facility] PAP ACOG PANEL 2: 30 to 65on 06-06-2022 . . Normal [facility] Comment on above: Result Comment: Perf ormed at: WB Performed By: #### [id number] #### [facility] [address] [place] [address] Dr. May Tabor Age Gdln ACOG Testing 30-65 Normal [facility] Comment on above: Performed By: #### [id number] #### [facility] [address] [address] [address] May Tabor DIAGNOSIS: Comment Normal [facility] Comment on above: Result Comment: NEGA TIVE FOR INTRAEPITHELIAL LESION OR MALIGNANCY. Performed at: WB Performed By: #### [id number] #### [facility] [address] [address] [address] May Tabor HPV Aptima Negative Normal Negative [facility] Comment on above: Result Comment: This nucleic acid amplification test detects fourteen high-risk HPV types (16,18,31,33,35,39,45,51,52,56,58,59,66,68) without differentiation. Performed at: =G Performed By: #### [id number] #### [facility] [address] [place] [address] Dr. May Tabor Methodology: Comment Normal [facility] Comment on above: Result Comment: This liquid based ThinPrep(R) pap test was screened with the use of an image guided system. Performed at: WB Performed By: #### [id number] #### [facility] [address] [place] [address] Dr. May Tabor Note: Comment Normal [facility] Comment on above: Result Comment: The Pap smear is a screening test designed to aid in the detection of premalignant and malignant conditions of the uterine cervix. It is not a diagnostic procedure and should not be used as the sole means of detecting cervical cancer. Both false-positive and false-negative reports do occur. . Performed at: WB Performed By: #### [id number] #### [facility] [address] [place] [address] Dr. May Tabor Performed by: Comment Normal [facility] Comment on above: Result Comment: Amna Joyce Mud Jack Operator (ASCP) Performed at: WB Performed By: #### [id number] #### [facility] [address] [place] [address] Dr. May Tabor Specimen adequacy: Comment Normal [facility] Comment on above: Result Comment: Sati sfactory for evaluation. Endocervical and/or squamous metaplastic cells (endocervical component) are present. Performed at: WB Performed By: #### [id number] #### [facility] [address] [place] [address] Dr. May Tabor MG MAMM SCREEN 3D ALLYSON CADon 06-01-2022 MG MAMM SCREEN 3D ALLYSON CAD Patient: SONAL AGUILLON Exam Date: 06/01/2022 : 1965 Gender:F Ordering : DR JASON PHELAN . Admission #: [id number] Family : Order #: [id number] CLICK HERE TO VIEW EXAM RADIOLOGY REPORT [...] pancreatic cancer at age 58. LOCATION: [facility] BREAST COMPOSITION: Scattered areas fibroglandular density. [...] MD on 06/01/2022 at 14:14 Normal [facility] Vital Signs Date Time Vital Sign Value Performing Clinician Faci lity 06-19-2024 15:24-0400 Body height 162.6 cm Jason Phelan MD Work Phone: [facility] 06-19-2024 15:24-0400 Body mass index (BMI) [Ratio] 25.15 kg/m2 Jason Phelan MD Work Phone: [facility] 06-19-2024 15:24-0400 Body weight 66.45 kg Jason Phelan MD Work Phone: [facility] 06-12-2024 09:26-0400 Body height 162.6 cm Jason Phelan MD Work Phone: [facility] 06-12-2024 09:26-0400 Body mass index (BMI) [Ratio] 25.15 kg/m2 Jason Phelan MD Work Phone: [facility] 06-12-2024 09:26-0400 Body weight 66.45 kg Jason Phelan MD Work Phone: [facility] 06-12-2024 09:26-0400 Diastolic blood pressure 70 mm[Hg] Jason Phelan MD Work Phone: [facility] 06-12-2024 09:26-0400 Heart rate 68 /min Jason Phelan MD Work Phone: [facility] 06-12-2024 09:26-0400 SaO2% (BldA) [Mass fraction] 98 % Jason Phelan MD Work Phone: [facility] 06-12-2024 09:26-0400 Systolic blood pressure 120 mm[Hg] Jason Phelan MD Work Phone: [facility] Healthcare Encounters Encounter Date Encounter Type [...] Screening for malign ant neoplasm of colon [facility] Start: 06-12-2025 Screening for malign ant neoplasm of breast Mammogram [facility] Start: 06-12-2025 Screening for malign ant neoplasm of cervix Cervical Cancer Screening [facility] Comment on above: Postponed from 08/25 (Other Medical Reasons) Start: 09-19-2024 End: 09-19-2024 Patient encounter procedure [facility] Start: 07-17-2024 End: 07-17-2024 Patient encounter procedure 07/17/2024 9:00 AM EST Office Visit [facility] [address] [place] [address] Jason Phelan MD [address] [place] [address] (Fax) [facility] Start: 07-06-2024 End: 07-06-2024 Patient encounter procedure 07/06/2024 3:30 PM EST Office Visit [facility] [address] [place] [address] Jason Phelan MD [address] [place] [address] [facility] Start: 06-22-2024 End: 06-22-2024 Patient encounter procedure [facility] Comment on above: Central hypothyroidi sm (CMS/HCC); Chronic fatigue; Former smoker Start: 06-22-2024 End: 06-22-2025 ACTH ACTH Lab Routine Central hypothyroidism (CMS/HCC) Chronic fatigue Expected: 06/22/2024 (Approximate), Expires: 06/22/2025 [facility] Comment on above: Expected: 06/22/2024 (Approximate), Expires: 06/22/2025 Start: 06-22-2024 End: 06-22-2025 Cortisol Cortisol Lab Routine Central hypothyroidism (CMS/HCC) Chronic fatigue Expected: 06/22/2024 (Approximate), Expires: 06/22/2025 [facility] Comment on above: Expected: 06/22/2024 (Approximate), Expires: 06/22/2025 Start: 06-22-2024 End: 06-22-2025 FSH FSH Lab Routine Chronic fatigue Amenorrhea Expected: 06/22/2024 (Approximate), Expires: 06/22/2025 [facility] Comment on above: Expected: 06/22/2024 (Approximate), Expires: 06/22/2025 Start: 06-22-2024 End: 06-22-2025 Thyroxine (T4) free [Mass/volume] in Serum or Plasma T4, free Lab Routine Central hypothyroidism (CMS/HCC) Chronic fatigue Expected: 06/22/2024 (Approximate), Expires: 06/22/2025 [facility] Work Phone: Comment on above: [...] unspecified joint Expected: 06/12/2024 (Approximate), Expires: 06/12/2025 [facility] Work Phone: Comment on above: Expected: 06/12/2024 (Approximate), Expires: 06/12/2025 Start: 06-12-2024 End: 06-12-2025 CBC W Auto Differential panel - Blood CBC and differential Lab Routine Chronic fatigue Expected: 06/12/2024 (Approximate), Expires: 06/12/2025 [facility] Comment on above: Expected: 06/12/2024 (Approximate), Expires: 06/12/2025 Start: 06-12-2024 End: 06-12-2025 Comprehensive metabolic 2000 panel - Serum or Plasma Comprehensive metabolic panel Lab Routine Screening for diabetes mellitus (DM) Expected: 06/12/2024 (Approximate), Expires: 06/12/2025 [facility] Comment on above: Expected: 06/12/2024 (Approximate), Expires: 06/12/2025 Start: 06-12-2024 End: 06-12-2025 Erythrocyte sedimentation rate Sedimentation rate, automated Lab Routine Arthralgia, unspecified joint Expected: 06/12/2024 (Approximate), Expires: 06/12/2025 [facility] Comment on above: Expected: 06/12/2024 (Approximate), Expires: 06/12/2025 Start: 06-12-2024 End: 06-12-2025 Lipid 1996 panel - Serum or Plasma Lipid panel Lab Routine Screening for lipid disorders Expected: 06/12/2024 (Approximate), Expires: 06/12/2025 [facility] Comment on above: Expected: 06/12/2024 (Approximate), Expires: 06/12/2025 Start: 06-12-2024 End: 06-12-2025 T3, reverse T3, reverse Lab Routine Chronic fatigue Thyroid nodule (CMS/HCC) Expected: 06/12/2024 (Approximate), Expires: 06/12/2025 [facility] Comment on above: Expected: 06/12/2024 (Approximate), Expires: 06/12/2025 Start: 06-12-2024 End: 06-12-2025 Thyroglobulin Antibody Thyroglobulin Antibody Lab Routine Chronic fatigue Expected: 06/12/2024 (Approximate), Expires: 06/12/2025 [facility] Comment on above: Expected: 06/12/2024 (Approximate), Expires: 06/12/2025 Start: 06-12-2024 End: 06-12-2025 Thyroid peroxidase antibody Thyroid peroxidase antibody Lab Routine Chronic fatigue Expected: 06/12/2024 (Approximate), Expires: 06/12/2025 [facility] Comment on above: Expected: 06/12/2024 (Approximate), Expires: 06/12/2025 Start: 06-12-2024 End: 06-12-2025 Thyrotropin [Units/volume] in Serum or Plasma TSH Lab Routine Chronic fatigue Thyroid nodule (CMS/HCC) Expected: 06/12/2024 (Approximate), Expires: 06/12/2025 [facility] Comment on above: Expected: 06/12/2024 (Approximate), Expires: 06/12/2025 Start: 06-12-2024 End: 06-12-2025 Thyroxine (T4) free [Mass/volume] in Serum or Plasma T4, free Lab Routine Chronic fatigue Thyroid nodule (CMS/HCC) Expected: 06/12/2024 (Approximate), Expires: 06/12/2025 [facility] Comment on above: Expected: 06/12/2024 (Approximate), Expires: 06/12/2025 Start: 06-12-2024 End: 06-12-2025 Triiodothyronine (T3) [Mass/volume] in Serum or Plasma T3 Lab Routine Chronic fatigue Thyroid nodule (CMS/HCC) Expected: 06/12/2024 (Approximate), Expires: 06/12/2025 [facility] Comment on above: Expected: 06/12/2024 (Approximate), Expires: 06/12/2025 Start: 06-12-2024 End: 06-12-2025 Triiodothyronine (T3) Free [Mass/volume] in Serum or Plasma T3, free Lab Routine Chronic fatigue Thyroid nodule (CMS/HCC) Expected: 06/12/2024 (Approximate), Expires: 06/12/2025 [facility] Comment on above: Expected: 06/12/2024 (Approximate), Expires: 06/12/2025 Start: 06-12-2024 End: 06-12-2025 US Thyroid gland US thyroid Imaging Routine Chronic fatigue Thyroid nodule (CMS/HCC) Expected: 06/12/2024, Expires: 06/12/2025 [facility] Comment on above: Expected: 06/12/2024 , Expires: 06/12/2025 Start: 06-12-2024 End: 06-12-2024 Patient encounter procedure 06/12/2024 9:30 AM EDT Office Visit [facility] [address] [id number] Jason Phelan MD [address] [place] [address] Encounter for wellness examination in adult; Advance [...] for malign ant neoplasm of breast Mammogram [facility] Start: 04-23-2024 Influenza vaccination Influenza Vacc ine (#1) [facility] Start: 10-07-2023 End: 10-07-2023 Patient encounter procedure [facility] Comment on above: Generalized anxiety disorder (CMS/HCC); Former smoker; BMI 25.0-25.9,adult Start: 1993 Screening for malign ant neoplasm of cervix [facility] Start: 1984 Screening for malign ant neoplasm of cervix Pap Smear [facility] Start: 1965 Screening for malign ant neoplasm of colon [facility] Immunizations Immunization Date Immunization Notes Care Provider Fa cility 05-26-2024 influenza, seasonal, injectable, preservative free Jason Phelan MD Work Phone: [facility] 05-29-2023 Influenza, injectabl e, Madin Jesika Canine Kidney, preservative free, quadrivalent Jason Phelan MD Work Phone: [facility] 05-29-2023 influenza virus vacc ine, unspecified formulation Jason Phelan MD Work Phone: [facility] 06-10-2022 influenza, injectabl e, quadrivalent, preservative free Jason Phelan MD Work Phone: [facility] 08-22-2021 zoster vaccine recombinant Jason Phelan MD Work Phone: [facility] 06-20-2021 zoster vaccine recombinant Jason Phelan MD Work Phone: [facility] 06-04-2021 influenza, seasonal, injectable Jason Phelan MD Work Phone: [facility] 06-11-2020 influenza, injectabl e, quadrivalent, preservative free Jason Phelan MD Work Phone: [facility] 06-19-2019 influenza, injectabl e, quadrivalent, preservative free Jason Phelan MD Work Phone: [facility] 06-04-2018 influenza, injectabl e, quadrivalent, preservative free Jason Phelan MD Work Phone: [facility] 06-21-2017 influenza, high dose seasonal, preservative-free Jason Phelan MD Work Phone: [facility] 05-11-2016 influenza, injectabl e, quadrivalent, preservative free Jason Phelan MD Work Phone: [facility] 06-03-2015 influenza, injectabl e, quadrivalent, preservative free Jason Phelan MD Work Phone: [facility] 09-25-2009 novel influenza-H1N1 -09, preservative-free, injectable Jason Phelan MD Work Phone: [facility] Payers Date Payer Category Payer Unknown [facility] [id number] 2023-Present [address] [address] [place] [address] [id number] 2022 Private Health Insurance [facility] [id number] 2022 Unknown [id number] 1965 Unknown [id number] [id number] 1965 Unknown [id number]. [id number] 1965 Unknown [id number] [id number] 1965 Unknown [id number] 2.1259 1963 Unknown [id number] 2.1259 1963 Unknown [id number]. 2.1259 1963 Unknown [id number] [id number]. 2.9 1965 Unknown [id number] [id number] 2.1259 1959 Unknown [id number] Social History Date Type Detail Facility Start: [...] 06/12/2024 COMMENT . Final Comment: Test Ordered: [id number] SWATHI, IFA Rfx 11 Manuel Multiplex SWATHI by IFA Rfx Titer/Pattern Negative Reference Range: . Negative <1:80 Borderline 1:80 Positive >1:80 ICAP nomenclature: AC-0 For more information about Hep-2 cell patterns use ANApatterns.org, the official website for the International Consensus on Antinuclear Antibody (SWATHI) Patterns (ICAP). Performed at: [facility] [id number] Third Rail Installer: Lalit Burden PhD, Phone: [phone] [facility] TRIIODOTHYRONINE (T3) 06/12/2024 61 (A) 71 - 180 ng/dL Final Comment: Performed at: [email or web address] [id number] Third Rail Installer: Lalit Burden PhD, Phone: [phone] REVERSE T3, SERUM 06/12/2024 12.5 9.2 - 24.1 ng/dL Final Comment: This test was developed and its performance characteristics determined by [facility]. It has not been cleared or approved by the Food and Drug Administration. Performed at: [facility] [employer] [id number] Third Rail Installer: Margaret Rene MD, Phone: [phone] THYROID PEROXIDASE (TPO) AB 06/12/2024 10 0 - 34 IU/mL Final THYROGLOBULIN ANTIBODY 06/12/2024 <1.0 0.0 - 0.9 IU/mL Final Comment: Thyroglobulin Antibody measured by Dave Candor Methodology It should be noted that the presence of thyroglobulin antibodies may not be pathogenic nor diagnostic, especially at very low levels. The assay multimedia author has found that four percent of individuals without evidence of thyroid disease or autoimmunity will have positive TgAb levels up to 4 IU/mL. Performed at: [facility] [employer] [id number] Third Rail Installer: Lalit Burden PhD, Phone: [phone] [facility] Result Encounter on 06/12/2024 Component Date [...] decision making . I have reviewed the [facility] urine hormone profile. I have made notations on the patient's copy to help them remember this complex testing and the complex hormone interactions. I then reviewed this with the patient or their medical sales representative. I have educated them concerning [...] Directive/Living Will: Yes Health Care Power of Technical Sales Consultant: Yes Review of Systems Constitutional: Negative for [...] I discussed with the patient or their medical sales representative, their fatigue issues. 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 Expl anation Advance Directives and Living Will 08/29/2019 2019-08-26 Living Wi ll Advance Directives and Living Will 08/29/2019 2019-08-26 Power Of Technical Sales Consultant Additional Source Comments INFORMATION SOURCE (unrecogn ized section and content) DATE CREATED AUTHOR 07/04/2022 [facility] DATE CREATED AUTHOR AUTHOR'S ORGANIZ ATION 06/24/2024 [facility] Care Teams (unrecognized sec tion and content) Reconsignment Clerk Relationship Specialty Start Date End Date Jason Phelan MD [address] [place] [address] (Fax) PCP - General Family Medicine 01/04/23 Reconsignment Clerk Relationship Specialty Start Date End Date Jason Phelan MD [address] [place] [address] (Fax) PCP - General Family Medicine 01/04/23 Reconsignment Clerk Relationship Specialty Start Date End Date Jason Phelan MD [address] [place] [address] (Fax) PCP - General Family Medicine 01/04/23 Reconsignment Clerk Relationship Specialty Start Date End Date Jason Phelan MD [address] [place] [address] (Fax) PCP - General Family Medicine 01/04/23 Reconsignment Clerk Relationship Specialty Start Date End Date Jason Phelan MD [address] [place] [address] (Fax) PCP - General Family Medicine 01/04/23 Reconsignment Clerk Relationship Specialty Start Date End Date Jason Phelan MD [address] [place] [address] (Fax) PCP - General Family Medicine 01/04/23 Reconsignment Clerk Relationship Specialty Start Date End Date Jason Phelan MD [address] [place] [address] (Fax) PCP - General Family Medicine 01/04/23 Reconsignment Clerk Relationship Specialty Start Date End Date Jason Phelan MD [address] [place] [address] (Fax) PCP - General Family Medicine 01/04/23 [...] ON THE PRIMARY CLINICAL RECORDS. [facility] [employer] [facility]. provides no warranty or guarantee of the accuracy or completeness of information in this document.
[2024-07-02 08:10] LABS: FSH 28.3 mIU/mL (25.8-134.8)
[2024-07-03 13:09] LABS: ACTH, Plasma 17.2 pg/mL (7.2-63.3)
== END 2024-07-01 07:17 | disposition home or self-care (01) ==
LOC: LAB 07:16
PROVIDERS: PCP Family Medicine; Visit Provider Family Medicine
DX: N91.2 Amenorrhea, unspecified (principal); E03.8 Other specified hypothyroidism; R53.82 Chronic fatigue, unspecified
CPT/HCPCS: 36415; 82024; 82533; 83001

== ENCOUNTER 2024-07-10 15:22 | Outpatient (OUT) | payer OTHER, SELFPAY ==
--- OUTSIDE RECORDS SUMMARY | 2024-07-10 15:35 | XMS_ITS | CCD ---
Author Organization [facility] Inform ion Partnership [facility] Care Team Providers Care Artist Blacksmith Name Role Phone ZHANE, DR JOYA Admitting [...] Unavailable Jason Phelan MD Primary Care Provider [phone] Jason Phelan MD Primary Care Provider [phone] JASON PHELAN Attending Unavailable JASON PHELAN Attending Unavailable JASON PHELAN Attending Unavailable JASON PHELAN Attending Unavailable JASON PHELAN Attending Unavailable Allergies Allergy Classification Reported Allergen(s) Allergy Type Date of Onset Reaction(s) Facility (14 sources) Sulfamethoxazole Allergy to substance 3 [facility] (14 sources) Trimethoprim Drug Allergy 3 [facility] Medications Current Medications Medication Drug Class(es) Dates Sig (Normalized) Sig (Original) ALPRAZolam 0.25 mg oral tablet (13 sources) Benzodiazepine Start: 09-14-2022 take 1 tablet by mouth three times daily as needed for anxiety ALPRAZolam (Xanax) 0.25 MG tablet Indications: Generalized anxiety disorder (CMS/HCC) Take 1 tablet (0.25 mg) by mouth 3 (three) times a day as needed for anxiety for up to 10 days 15 tablet 10/07/2023 Active citalopram 40 mg oral tablet (14 sources) Serotonin Reuptake Inhibitor Start: 03-27-2024 End: [...] Cream Base (HRT Cream Base Women) cream (14 sources) Start: 04-21-2023 Hormone Cream Base (HRT Cream Base Women) cream Indications: Menopausal syndrome , Hot flashes due to menopause Use 1 mL nightly days 1 through 25 of the month 0 04/21/2023 Active levothyroxine sodium 0.075 mg oral tablet (4 sources) l-Thyroxine Start: 06-22-2024 End: 07-22-2024 take 1 tablet by mouth before mealtime levothyroxine (Synthroid) 75 MCG tablet Indications: Central hypothyroidism (CMS/HCC) Take 1 tablet (75 mcg) by mouth in the morning. Take before meals. 30 tablet 06/22/2024 07/22/2024 Active meclizine hydrochloride 25 mg oral tablet (14 sources) Antiemetic take 1 tablet by mouth every eight hours meclizine (Antivert) 25 MG tablet Take 25 mg by mouth every 8 (eight) hours. 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] Onset: 04-01-2023 04-01-2023 Chronic Deficiency and other anemia (2 sources) Iron deficiency anemia secondary to inadequate dietary iron intake; Translations: [Other iron deficiency anemias] 06-26-2024 Episodic Immunizations and screening for infectious disease (1 source) Encounter for screening for human papillomavirus (HPV); Translations: [ENC SCREENING HUMAN PAPILLOMAVIRUS] Onset: 06-02-2022 Episodic Malaise and fatigue (12 sources) Fatigue; Translations: [Chronic fatigue, unspecified] Onset: 06-19-2024 06-12-2024 Chronic Menopausal disorders (17 sources) Menopausal and female climacteric states; Translations: [Menopausal flushing] Onset: 07-04-2022 04-01-2023 Chronic Menstrual disorders (2 sources) Amenorrhea; Translations: [Amenorrhea, unspecified] 06-22-2024 Chronic Other and unspecified benign neoplasm (2 sources) Senile angioma; Translations: [Hemangioma of skin and subcutaneous tissue] 06-12-2024 Episodic Other non-traumatic joint disorders (2 sources) Joint pain; Translations: [Pain in unspecified joint] 06-12-2024 Episodic Other nutritional; endocrine; and metabolic disorders (14 sources) Insulin resistance; Translations: [Insulin resistance] Onset: [...] specified health status] 06-07-2024 Episodic Thyroid disorders (12 sources) Thyroid nodule; Translations: [Nontoxic single thyroid nodule] Onset: 06-19-2024 06-12-2024 Chronic Past or Other Problems Problem Classification Problem Date Documented Da te Episodic/Chronic Conditions associated with dizziness or vertigo (14 sources) Vertigo; Translations: [Dizziness and giddiness] Onset: 04-01-2023 Resolved: 06-07-2023 06-07-2023 Episodic Menopausal disorders (16 sources) Drug therapy status; Translations: [Hormone replacement therapy] Onset: 04-01-2023 04-01-2023 Episodic Other connective tissue disease (14 sources) Poor posture; Translations: [Abnormal posture] Onset: 04-01-2023 04-01-2023 Episodic Other ear and sense organ disorders (14 sources) Bilateral tinnitus; Translations: [Tinnitus, bilateral] Onset: 04-01-2023 04-01-2023 Episodic Screening and history of mental health and substance abuse codes (16 sources) Ex-smoker; Translations: [Personal history of nicotine dependence] Onset: 08-29-2019 05-31-2023 Episodic Results Test Name Value Interpretation Reference Range Facility ALL FOLLICLE STIMULATING HOR MONEon 07-02-2024 FSH 28.3 [facility] [employer] [facility] Comment on above: Adult Female Range Follicular phase 3.5 - 12.5 Ovulation phase 4.7 - 21.5 Luteal phase 1.7 - 7.7 Postmenopausal 25.8 - 134.8 Performed at: [address] [id number] Facility Maintenance Mechanic: Lalit Burden PhD, Phone: [phone] [facility] CORTISOLon 07-02-2024 [facility] CORTISOL 9.6 ug/dL 6.2 - 19.4 ug/dL [facility] Comment on above: Please Note: The ref erence interval and flagging for this test is for an AM collection. If this is a PM collection please use: Cortisol PM: 2.3-11.9 No Panel Informationon 07-02 [facility] [employer] [facility] ALL LIPID PROFILE (FASTING)o n 06-30-[address] Comment on above: 3.3 - 4.4 LOW RISK 4.4 - 7.1 AVERAGE RISK 7.1 - 11.0 MODERATE RISK >11.0 HIGH RISK Cholesterol [Mass/Vol] 175 mg/dL NINF - 200 mg/dL [facility] Cholesterol in HDL [Mass/Vol] 47 mg/dL 40 - 60 mg/dL [facility] Comment on above: > or =60 mg/dl - LOW CARDIOVASCULAR RISK <40 mg/dl - HIGH CARDIOVASCULAR RISK Magnesium [Mass/Vol] 118 mg/dL [facility] Comment on above: <100 mg/dl OPTIMAL 100-129 mg/dl NEAR OR ABOVE OPTIMAL 130-159 mg/dl BORDERLINE HIGH 160-189 mg/dl HIGH >190 mg/dl VERY HIGH Magnesium [Mass/Vol] 10 mg/dL [facility] Triglyceride [Mass/Vol] 50 mg/dL NINF - 150 mg/dL [facility] CMP (CMP) (FOR REMOTE FH C USE)on 06-30-2024 Albumin [Mass/Vol] 4 g/dL 3.4 - 5.0 g/dL NO [facility] ALBUMIN GLOBULIN RATIO 1.2 [facility] ALP [Catalytic activity/Vol] 36 U/L Low 46 - 116 U/L [facility] ALT [Catalytic activity/Vol] 18 U/L 14 - 59 U/L [facility] Anion gap [Moles/Vol] 11.8 mmol/L [facility] AST [Catalytic activity/Vol] 14 U/L Low 15 - 37 U/L [facility] Bilirubin [Mass/Vol] 0.7 mg/dL 0.2 - 1 .0 mg/dL [facility] Calcium [Mass/Vol] 9 mg/dL 8.5 - 10. 1 mg/dL [facility] Chloride [Moles/Vol] 106 mmol/L 98 - 10 7 mmol/L [facility] CO2 [Moles/Vol] 30.6 mmol/L 21.0 - 32.0 mmol/L [facility] Creatinine [Mass/Vol] 0.75 mg/dL 0.55 - 1.02 mg/dL [facility] GFR/1.73 sq M.predicted CKD-EPI (S/P/Bld) [Vol rate/Area] >60 >=60 mL/min/1.73m 2 [facility] Globulin (S) [Mass/Vol] 3.4 g/dL [facility] Glucose [Mass/Vol] 90 mg/dL 74 - 106 mg/dL NO [facility] Interpretation and review of laboratory results Abnormal [facility] Potassium [Moles/Vol] 4.4 mmol/L 3.5 - 5.1 mmol/L [facility] Protein [Mass/Vol] 7.4 g/dL 6.4 - 8.2 g/dL NO [facility] Sodium [Moles/Vol] 144 mmol/L 136 - 145 mmol/L [facility] TBH EGFR-NON AF TUVALUAN >60 >=60 mL/min/1.73m 2 [facility] Urea nitrogen [Mass/Vol] 15 mg/dL 7.0 - 18.0 mg/dL [facility] Urea nitrogen/Creatinine [Mass ratio] 20 mg/mg [facility] No Panel Informationon 06-30 [facility] ALL CBC WITH AUTO DIFFon BASOPHILS ABSOLUTE AUTO 0 [facility] Basophils/100 WBC (Bld) 0.4 % 0.2 - 2.0 % [facility] Eosinophils/100 WBC (Bld) 2.1 % 0.9 - 7.0 % [facility] Erythrocyte distribution width (RBC) [Ratio] 15.9 % High 11.0 - 15.0 % [facility] Hematocrit (Bld) [Volume fraction] 34.2 % Low 36.0 - 48.0 % [facility] Hemoglobin (Bld) [Mass/Vol] 10.5 g/dL Low 12.0 - 16.0 g/dL [facility] IMMATURE GRANULOCYTES ABS AUTO 0.02 [facility] Immature granulocytes/100 WBC (Bld) 0.3 % 0.0 - 0.5 % [facility] Interpretation and review of laboratory results Abnormal [facility] LYMPHOCYTES ABSOLUTE AUTO 2.2 [facility] Lymphocytes/100 WBC (Bld) 28.9 % 20.5 - 60.0 % [facility] MCH (RBC) [Entitic mass] 21.3 pg Low 26.7 - 34.0 pg [facility] MCHC (RBC) [Mass/Vol] 30.7 g/dL 29.9 - 35.2 g/dL [facility] MCV (RBC) [Entitic vol] 69.2 fL Low 81.0 - 99.0 fL [facility] MONOCYTES ABSOLUTE AUTO 0.5 [facility] Monocytes/100 WBC (Bld) 6.9 % 1.7 - 12.0 % [facility] NEUTROPHILS ABSOLUTE AUTO 4.7 [facility] Neutrophils/100 WBC (Bld) 61.4 % 43.0 - 75.0 % [facility] Platelet mean volume (Bld) [Entitic vol] 10.3 fL 9.5 - 13.5 fL [facility] EO # 0.2 [facility] PLT 411 [facility] RBC 4.94 [facility] WBC 7.7 [facility] XR DEXA BONE DENSITYon 06-29 [...] CORTEZ Date: 2022-06-29 17:06 Normal [facility] PAP ACOG PANEL 2: 30 to 65on 06-06-2022 . . Normal [facility] Comment on above: Result Comment: Perf ormed at: WB Performed By: #### [id number] #### [facility] [address] [place] [address] Dr. May Tabor Age Gdln ACOG Testing 30-65 Normal [facility] Comment on above: Performed By: [id number] #### [facility] [address] [place] [address] Dr. May Tabor DIAGNOSIS: Comment Normal [facility] Comment on above: Result Comment: NEGA TIVE FOR INTRAEPITHELIAL LESION OR MALIGNANCY. Performed at: WB Performed By: #### [id number] #### [facility] [address] [address] [address] May Tabor HPV Aptima Negative Normal Negative [facility] Comment on above: Result Comment: This nucleic acid amplification test detects fourteen high-risk HPV types (16,18,31,33,35,39,45,51,52,56,58,59,66,68) without differentiation. Performed at: =G Performed By: #### [id number] #### [facility] [address] [place] [address] Dr. May Tabor Methodology: Comment Normal [facility] Comment on above: Result Comment: This liquid based ThinPrep(R) pap test was screened with the use of an image guided system. Performed at: WB Performed By: #### [id number] #### [facility] [address] [address] [address] May Tabor Note: Comment Normal [facility] Comment on above: Result Comment: The Pap smear is a screening test designed to aid in the detection of premalignant and malignant conditions of the uterine cervix. It is not a diagnostic procedure and should not be used as the sole means of detecting cervical cancer. Both false-positive and false-negative reports do occur. . Performed at: WB Performed By: #### [id number] #### [facility] [address] [address] [address] May Tabor Performed by: Comment Normal [facility] Comment on above: Result Comment: Amna Joyce Assistant Professor Of Marine Biology (ASCP) Performed at: WB Performed By: #### [id number] #### [facility] [address] [place] [address] Dr. May Tabor Specimen adequacy: Comment Normal [facility] Comment on above: Result Comment: Sati sfactory for evaluation. Endocervical and/or squamous metaplastic cells (endocervical component) are present. Performed at: WB Performed By: #### [id number] #### [facility] [address] [place] [address] Dr. May Tabor MG MAMM SCREEN 3D ALLYSON CADon 06-01-2022 MG MAMM SCREEN 3D ALLYSON CAD Patient: SONAL AGUILLON Exam Date: 06/01/2022 : 1965 Gender:F Ordering : DR JASON PHELAN . Admission #: [id number] Family : Order #: [id number] CLICK HERE TO VIEW EXAM RADIOLOGY REPORT [...] pancreatic cancer at age 58. LOCATION: [facility] BREAST COMPOSITION: Scattered areas fibroglandular density. FINDINGS: [...] on 06/01/2022 at 14:14 Normal [facility] Vital Signs Date Time Vital Sign Value Performing Clinician Faci lity 06-19-2024 15:24-0400 Body height 162.6 cm Jason Phelan MD Work Phone: [facility] 06-19-2024 15:24-0400 Body mass index (BMI) [Ratio] 25.15 kg/m2 Jason Phelan MD Work Phone: [facility] 06-19-2024 15:24-0400 Body weight 66.45 kg Jason Phelan MD Work Phone: [facility] 06-12-2024 09:26-0400 Body height 162.6 cm Jason Phelan MD Work Phone: [facility] 06-12-2024 09:26-0400 Body mass index (BMI) [Ratio] 25.15 kg/m2 Jason Phelan MD Work Phone: [facility] 06-12-2024 09:26-0400 Body weight 66.45 kg Jason Phelan MD Work Phone: [facility] 06-12-2024 09:26-0400 Diastolic blood pressure 70 mm[Hg] Jason Phelan MD Work Phone: [facility] 06-12-2024 09:26-0400 Heart rate 68 /min Jason Phelan MD Work Phone: [facility] 06-12-2024 09:26-0400 SaO2% (BldA) [Mass fraction] 98 % Jason Phelan MD Work Phone: [facility] 06-12-2024 09:26-0400 Systolic blood pressure 120 mm[Hg] Jason Phelan MD Work Phone: [facility] Encounters Encounter Date Encounter Type Care Provider Facility Start: 07-01-2024 End: 07-02-2024 [facility] Result Encounter Jason Phelan MD Work Phone: [facility] Unsolicited Start: 07-01-2024 End: 07-02-2024 [facility] Result Encounter Jason Phelan MD Work Phone: [facility] Unsolicited Start: 06-30-2024 End: 06-30-2024 [facility] Result Encounter Jason Phelan MD Work Phone: [facility] Unsolicited Start: 06-30-2024 End: 06-30-2024 [facility] Result Encounter Jason Phelan MD Work Phone: [facility] Unsolicited Start: 06-22-2024 End: 06-22-2024 Office outpatient visit [...] Date Procedure Procedure Detail Performing Clinician Start: 07-01-2024 ALL FOLLICLE STIMULA TING HORMONE Jason Phelan MD Work Phone: Start: 07-01-2024 [facility] CORTISOL Jason Phelan MD Work Phone: Start: 06-30-2024 ALL LIPID PROFILE (FASTING) Jason Phelan MD Work Phone: Start: 06-30-2024 [facility] CMP (CMP) (FOR [facility] USE) Jason Phelan MD Work Phone: Start: 06-12-2024 ALL CBC WITH AUTO DIFF Jason Phelan MD Work Phone: Start: 06-12-2024 Mammography Jason castro MD Work Phone: Start: 06-07-2023 Mammography Jason castro MD Work Phone: Start: 12-01-2017 Colonoscopy Jason castro MD Work Phone: Plan of Treatment Date Care Activity Detail Author Start: 12-02-2027 Screening for malign ant neoplasm of colon [facility] Start: 06-12-2025 Screening for malign ant neoplasm of breast Mammogram [facility] Start: 06-12-2025 Screening for malign ant neoplasm of cervix Cervical Cancer Screening [facility] Comment on above: Postponed from 08/25 (Other Medical Reasons) Start: 09-19-2024 End: 09-19-2024 Patient encounter procedure [facility] Start: 07-17-2024 End: 07-17-2024 Patient encounter procedure 07/17/2024 9:00 AM EST Office Visit [facility] [address] [place] [address] Jason Phelan MD [address] [place] [address] (Fax) [facility] Start: 07-06-2024 End: 07-06-2024 Patient encounter procedure 07/06/2024 3:30 PM EST Office Visit [facility] [address] [place] [address] Jason Phelan MD [address] [place] [address] (Fax) [facility] Start: 06-22-2024 End: 06-22-2024 Patient encounter procedure [facility] Comment on above: Central hypothyroidi sm (CMS/HCC); Chronic fatigue; Former smoker Start: 06-22-2024 End: 06-22-2025 ACTH ACTH Lab Routine Central hypothyroidism (CMS/HCC) Chronic fatigue Expected: 06/22/2024 (Approximate), Expires: 06/22/2025 [facility] Comment on above: Expected: 06/22/2024 (Approximate), Expires: 06/22/2025 Start: 06-22-2024 End: 06-22-2025 Cortisol Cortisol Lab Routine Central hypothyroidism (CMS/HCC) Chronic fatigue Expected: 06/22/2024 (Approximate), Expires: 06/22/2025 [facility] Comment on above: Expected: 06/22/2024 (Approximate), Expires: 06/22/2025 Start: 06-22-2024 End: 06-22-2025 FSH FSH Lab Routine Chronic fatigue Amenorrhea Expected: 06/22/2024 (Approximate), Expires: 06/22/2025 [facility] Comment on above: Expected: 06/22/2024 (Approximate), Expires: 06/22/2025 Start: 06-22-2024 End: 06-22-2025 Thyroxine (T4) free [Mass/volume] in Serum or Plasma T4, free Lab Routine Central hypothyroidism (CMS/HCC) Chronic fatigue Expected: 06/22/2024 (Approximate), Expires: 06/22/2025 [facility] Work Phone: Comment on above: Expected: 06/22/2024 (Approximate), Expires: 06/22/2025 Start: 06-19-2024 End: 06-19-2024 Patient encounter procedure [facility] Comment on above: Hormone replacement therapy; Former smoker Start: 06-12-2024 End: 06-12-2025 25-hydroxyvitamin D3 [Mass/volume] in Serum or Plasma Vitamin D 25 hydroxy Lab Routine Chronic fatigue Arthralgia, unspecified joint Expected: 06/12/2024 (Approximate), Expires: 06/12/2025 [facility] Comment on above: Expected: 06/12/2024 (Approximate), Expires: 06/12/2025 Start: 06-12-2024 End: 06-12-2025 SWATHI MULTIPLEX W/REFLEX 11 AB CASCADE SWATHI MULTIPLEX W/REFLEX 11 AB CASCADE Lab Routine Arthralgia, unspecified joint Expected: 06/12/2024 (Approximate), Expires: 06/12/2025 [facility] Work Phone: Comment on above: Expected: 06/12/2024 (Approximate), Expires: 06/12/2025 Start: 06-12-2024 End: 06-12-2025 CBC W Auto Differential panel - Blood CBC and differential Lab Routine Chronic fatigue Expected: 06/12/2024 (Approximate), Expires: 06/12/2025 [facility] Comment on above: Expected: 06/12/2024 (Approximate), Expires: 06/12/2025 Start: 06-12-2024 End: 06-12-2025 Comprehensive metabolic 2000 panel - Serum or Plasma Comprehensive metabolic panel Lab Routine Screening for diabetes mellitus (DM) Expected: 06/12/2024 (Approximate), Expires: 06/12/2025 [facility] Comment on above: Expected: 06/12/2024 (Approximate), Expires: 06/12/2025 Start: 06-12-2024 End: 06-12-2025 Erythrocyte sedimentation rate Sedimentation rate, automated Lab Routine Arthralgia, unspecified joint Expected: 06/12/2024 (Approximate), Expires: 06/12/2025 [facility] Comment on above: Expected: 06/12/2024 (Approximate), Expires: 06/12/2025 Start: 06-12-2024 End: 06-12-2025 Lipid 1996 panel - Serum or Plasma Lipid panel Lab Routine Screening for lipid disorders Expected: 06/12/2024 (Approximate), Expires: 06/12/2025 [facility] Comment on above: Expected: 06/12/2024 (Approximate), Expires: 06/12/2025 Start: 06-12-2024 End: 06-12-2025 T3, reverse T3, reverse Lab Routine Chronic fatigue Thyroid nodule (CMS/HCC) Expected: 06/12/2024 (Approximate), Expires: 06/12/2025 [facility] Comment on above: Expected: 06/12/2024 (Approximate), Expires: 06/12/2025 Start: 06-12-2024 End: 06-12-2025 Thyroglobulin Antibody Thyroglobulin Antibody Lab Routine Chronic fatigue Expected: 06/12/2024 (Approximate), Expires: 06/12/2025 [facility] Comment on above: Expected: 06/12/2024 (Approximate), Expires: 06/12/2025 Start: 06-12-2024 End: 06-12-2025 Thyroid peroxidase antibody Thyroid peroxidase antibody Lab Routine Chronic fatigue Expected: 06/12/2024 (Approximate), Expires: 06/12/2025 [facility] Comment on above: Expected: 06/12/2024 (Approximate), Expires: 06/12/2025 Start: 06-12-2024 End: 06-12-2025 Thyrotropin [Units/volume] in Serum or Plasma TSH Lab Routine Chronic fatigue Thyroid nodule (CMS/HCC) Expected: 06/12/2024 (Approximate), Expires: 06/12/2025 [facility] Comment on above: Expected: 06/12/2024 (Approximate), Expires: 06/12/2025 Start: 06-12-2024 End: 06-12-2025 Thyroxine (T4) free [Mass/volume] in Serum or Plasma T4, free Lab Routine Chronic fatigue Thyroid nodule (CMS/HCC) Expected: 06/12/2024 (Approximate), Expires: 06/12/2025 [facility] Comment on above: Expected: 06/12/2024 (Approximate), Expires: 06/12/2025 Start: 06-12-2024 End: 06-12-2025 Triiodothyronine (T3) [Mass/volume] in Serum or Plasma T3 Lab Routine Chronic fatigue Thyroid nodule (CMS/HCC) Expected: 06/12/2024 (Approximate), Expires: 06/12/2025 [facility] Comment on above: Expected: 06/12/2024 (Approximate), Expires: 06/12/2025 Start: 06-12-2024 End: 06-12-2025 Triiodothyronine (T3) Free [Mass/volume] in Serum or Plasma T3, free Lab Routine Chronic fatigue Thyroid nodule (CMS/HCC) Expected: 06/12/2024 (Approximate), Expires: 06/12/2025 [facility] Comment on above: Expected: 06/12/2024 (Approximate), Expires: 06/12/2025 Start: 06-12-2024 End: 06-12-2025 US Thyroid gland US thyroid Imaging Routine Chronic fatigue Thyroid nodule (CMS/HCC) Expected: 06/12/2024, Expires: 06/12/2025 [facility] Comment on above: Expected: 06/12/2024 , Expires: 06/12/2025 Start: 06-12-2024 End: 06-12-2024 Patient encounter procedure 06/12/2024 9:30 AM EDT Office Visit [facility] [address] [id number] Jason Phelan MD [address] [place] [address] (Fax) Encounter for wellness examination in adult; [...] for malign ant neoplasm of breast Mammogram [facility] Start: 04-23-2024 Influenza vaccination Influenza Vacc ine (#1) [facility] Start: 10-07-2023 End: 10-07-2023 Patient encounter procedure [facility] Comment on above: Generalized anxiety disorder (CMS/HCC); Former smoker; BMI 25.0-25.9,adult Start: 1993 Screening for malign ant neoplasm of cervix [facility] Start: 1984 Screening for malign ant neoplasm of cervix Pap Smear [facility] Start: 1963 Screening for malign ant neoplasm of colon [facility] Immunizations Immunization Date Immunization Notes Care Provider Shanon bell 05-26-2024 influenza, seasonal, injectable, preservative free Jason Phelan MD Work Phone: [facility] 05-29-2023 Influenza, injectabl e, Madin Kress Canine Kidney, preservative free, quadrivalent Jason Phelan MD Work Phone: [facility] 05-29-2023 influenza virus vacc ine, unspecified formulation Jason Phelan MD Work Phone: [facility] 06-10-2022 influenza, injectabl e, quadrivalent, preservative free Jason Phelan MD Work Phone: [facility] [facility]2021 zoster vaccine recombinant Jason Phelan MD Work Phone: [facility] 06-20-2021 zoster vaccine recombinant Jason Phelan MD Work Phone: [facility] 06-04-2021 influenza, seasonal, injectable Jason Phelan MD Work Phone: [facility] 06-11-2020 influenza, injectabl e, quadrivalent, preservative free Jason Phelan MD Work Phone: [facility] 06-19-2019 influenza, injectabl e, quadrivalent, preservative free Jason Phelan MD Work Phone: [facility] 06-04-2018 influenza, injectabl e, quadrivalent, preservative free Jason Phelan MD Work Phone: [facility] 06-21-2017 influenza, high dose seasonal, preservative-free Jason Phelan MD Work Phone: [facility] 05-11-2016 influenza, injectabl e, quadrivalent, preservative free Jason Phelan MD Work Phone: [facility] 06-03-2015 influenza, injectabl e, quadrivalent, preservative free Jason Phelan MD Work Phone: [facility] 09-25-2009 novel influenza-H1N1 -09, preservative-free, injectable Jason Phelan MD Work Phone: [facility] Payers Date Payer Category Payer Unknown [employer] [id number] 2023-Present [address] [address] [place] [address] [id number] 2022 Private Health Insurance [facility] [id number] 2022 Unknown [id number] 1963 Unknown [id number]. 2.593 1963 Unknown [id number] [id number]. 2.593 1963 Unknown [id number] [id number]. 2.593 1963 Unknown [id number] [id number]. 2.9 1963 Unknown [id number] [id number]. 2.9 1963 Unknown [id number] [id number]. 2.9 1963 Unknown [id number] [id number]. 2.9 1963 Unknown [id number] [id number]. 2.1259 1959 Unknown [id number] Social History Date Type Detail Facility Start: 06-06-2023 End: 06-12-2024 Tobacco smoking status [facility] Ex-smoker [facility] Start: 08-23-1979 End: [...] 06/12/2024 COMMENT . Final Comment: Test Ordered: [id number] SWATHI, IFA Rfx 11 Manuel Multiplex SWATHI by IFA Rfx Titer/Pattern Negative Reference Range: . Negative <1:80 Borderline 1:80 Positive >1:80 ICAP nomenclature: AC-0 For more information about Hep-2 cell patterns use ANApatterns.org, the official website for the International Consensus on Antinuclear Antibody (SWATHI) Patterns (ICAP). Performed at: [address] [id number] Facility Maintenance Mechanic: Lalit Burden PhD, Phone: [phone] [facility] TRIIODOTHYRONINE (T3) 06/12/2024 61 (A) 71 - 180 ng/dL Final Comment: Performed at: [address] [id number] Facility Maintenance Mechanic: Lalit Burden PhD, Phone: [phone] REVERSE T3, SERUM 06/12/2024 12.5 9.2 - 24.1 ng/dL Final Comment: This test was developed and its performance characteristics determined by [facility]. It has not been cleared or approved by the Food and Drug Administration. Performed at: [address] [id number] Facility Maintenance Mechanic: Margaret Rene MD, Phone: [phone] THYROID PEROXIDASE (TPO) AB 06/12/2024 10 0 - 34 IU/mL Final THYROGLOBULIN ANTIBODY 06/12/2024 <1.0 0.0 - 0.9 IU/mL Final Comment: Thyroglobulin Antibody measured by [facility] It should be noted that the presence of thyroglobulin antibodies may not be pathogenic nor diagnostic, especially at very low levels. The assay chef under has found that four percent of individuals without evidence of thyroid disease or autoimmunity will have positive TgAb levels up to 4 IU/mL. Performed at: [address] [id number] Facility Maintenance Mechanic: Lalit Burden PhD, Phone: [phone] [facility] Result Encounter on 06/12/2024 Component Date [...] decision making . I have reviewed the [facility] urine hormone profile. I have made notations on the patient's copy to help them remember this complex testing and the complex hormone interactions. I then reviewed this with the patient or their printing sales representative. I have educated them concerning [...] Directive/Living Will: Yes Health Care Power of Professional Advisor: Yes Review of Systems Constitutional: Negative for [...] I discussed with the patient or their printing sales representative, their fatigue issues. 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 Expl anation Advance Directives and Living Will 08/29/2019 2019-08-26 Living Wi ll Advance Directives and Living Will 08/29/2019 2019-08-26 Power Of Professional Advisor Additional Source Comments INFORMATION SOURCE (unrecogn ized section and content) DATE CREATED AUTHOR 07/04/2022 [facility] DATE CREATED AUTHOR AUTHOR'S ORGANIZ ATION 06/24/2024 [facility] [employer] Care Teams (unrecognized sec tion and content) Artist Blacksmith Relationship Specialty Start Date End Date Jason Phelan MD [address] [place] [address] PCP - General Family Medicine 01/04/23 Artist Blacksmith Relationship Specialty Start Date End Date Jason Phelan MD [address] [place] [address] (Fax) PCP - General Family Medicine 01/04/23 Artist Blacksmith Relationship Specialty Start Date End Date Jason Phelan MD [address] [place] [address] (Fax) PCP - General Family Medicine 01/04/23 Artist Blacksmith Relationship Specialty Start Date End Date Jason Phelan MD [address] [place] [address] (Fax) PCP - General Family Medicine 01/04/23 Artist Blacksmith Relationship Specialty Start Date End Date Jason Phelan MD [address] [place] [address] (Fax) PCP - General Family Medicine 01/04/23 Artist Blacksmith Relationship Specialty Start Date End Date Jason Phelan MD [address] [place] [address] (Fax) PCP - General Family Medicine 01/04/23 Artist Blacksmith Relationship Specialty Start Date End Date Jason Phelan MD [address] [place] [address] (Fax) PCP - General Family Medicine 01/04/23 Artist Blacksmith Relationship Specialty Start Date End Date Jason Phelan MD [address] [place] [address] (Fax) PCP - General Family Medicine 01/04/23 Artist Blacksmith Relationship Specialty Start Date End Date Jason Phelan MD [address] [place] [address] (Fax) PCP - General Family Medicine 01/04/23 [...] BE BASED ON THE PRIMARY CLINICAL RECORDS. [facility] [employer] [facility]. provides no warranty or guarantee of the accuracy or completeness of information in this document.
[2024-07-10 15:51] LABS: Free T4 0.94 ng/dL (0.76-1.46)
== END 2024-07-10 15:23 | disposition home or self-care (01) ==
LOC: LAB 15:23
PROVIDERS: PCP Family Medicine; Visit Provider Family Medicine
DX: E03.8 Other specified hypothyroidism (principal); R53.82 Chronic fatigue, unspecified
CPT/HCPCS: 36415; 84439

== ENCOUNTER 2024-12-16 10:20 | Outpatient (OUT) | payer OTHER, SELFPAY ==
[2024-12-16 11:35] LABS: Percent Iron Saturation 48.9 %
[2024-12-16 11:42] LABS: Free T4 0.96 ng/dL (0.76-1.46)
== END 2024-12-16 10:21 | disposition home or self-care (01) ==
LOC: LAB 10:21
PROVIDERS: PCP Family Medicine; Visit Provider Family Medicine
DX: E03.8 Other specified hypothyroidism (principal); R53.82 Chronic fatigue, unspecified; E61.1 Iron deficiency
CPT/HCPCS: 36415; 83540; 83550; 84439

== ENCOUNTER 2025-07-06 12:48 | Outpatient (OUT) | payer OTHER, SELFPAY ==
--- OUTSIDE RECORDS SUMMARY | 2025-07-06 12:53 | XMS_ITS | CCD ---
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 Role Phone ZHANE, DR JOYA Admitting Unavailable HEMEYER, DR JOYA Attending Unavailable MISC, DR FONG Primary Care Unavailable HEMEYER, DR JOYA Consulting Unavailable WEST, DR CHANTE Montoya Consulting Unavailable HEMEYER, DR JOYA Admitting Unavailable HEMEYER, DR JOYA Attending Unavailable MISC, DR FONG Primary Care Unavailable HEMEYER, DR JOYA Consulting Unavailable WEST, DR CHANTE Montoya Consulting Unavailable KARASIK, DR ZAVALA Admitting Unavailable KARASIK, DR ZAVALA Attending Unavailable MISC, DR FONG Primary Care Unavailable KARASIK, DR ZAVALA Consulting Unavailable Jason Phelan MD Primary Care Provider Jason Phelan MD Primary Care Provider Jason Phelan MD Primary Care Provider JASON PHELAN Attending Unavailable JASON PHELAN Attending Unavailable JASON PHELAN Attending Unavailable JASON PHELAN Attending Unavailable JASON PHELAN Attending Unavailable JASON PHELAN Attending Unavailable JASON PHELAN Referring Unavailable Allergies Allergy ClassificationReported Allergen(s)Allergy TypeDate of OnsetReaction(s) Facility (20 sources)SulfamethoxazoleAllergy to hzoorsdhf69-01-8165[facility] (20 sources)TrimethoprimDrug Rrnfnvf27-63-2032WNI[facility] Medications Current Medications MedicationDrug Class(es)DatesSig (Normalized)Sig (Original)ALPRAZolam 0.25 mg oral tablet (20 sources)BenzodiazepineStart: 09-14-2022 End: 04-24-4445rxdp 1 tablet by mouth three times daily as needed for anxiety ALPRAZolam (Xanax) 0.25 MG tablet Indications: Generalized anxiety disorder Take 1 tablet (0.25 mg)by mouth 3 (three) times a day as needed for anxiety for up to 10 days 15 tablet 03/13/2025 Activecitalopram 40 mg oral tablet (20 sources)Serotonin Reuptake InhibitorStart: 03-27-2024 End: 82-37-5135ftwk 1 tablet by mouth once dailycitalopram (CeleXA) 40 MG tablet Indications: Generalized anxiety disorder Take 1 tablet (40 mg) bymouth Daily 90 tablet 1 03/13/2025 09/09/2025 ActiveStart: 04-14-2023 End: 61-12-6494bser 1 tablet by mouth in the morningcitalopram (CeleXA) 40 MG tablet Indications: Generalized anxiety disorder (CMS/HCC) Take 1 tablet (40 mg) by mouth in the morning. 90 tablet 1 04/14/2023 10/11/2023 ActiveHormone Cream Base (HRT Cream Base Women) cream (20 sources)Start: 49-85-6915Ocgowxo Cream Base (HRT Cream Base Women) cream Indications: Menopausal syndrome , Hot flashes due to menopause Use 1 mL nightly days 1 through 25 of the month 0 04/21/2023 Activelevothyroxine sodium 0.1 mg oral tablet (20 sources)l-ThyroxineStart: 01-01-2025 End: 70-92-0934ibhw 1 tablet by mouth before mealtimelevothyroxine (Synthroid) 100 MCG tablet Indications: Central hypothyroidism Take 1 tablet (100 mcg) by mouth in the morning. Take before meals. 90 tablet 3 07/02/2025 07/02/2026 ActiveStart: 07-17-2024 End: 82-73-5123coxp 1 tablet by mouth before mealtimelevothyroxine (Synthroid) 88 MCG tablet Indications: Central hypothyroidism (CMS/HCC) Take 1 tablet(88 mcg) by mouth in the morning. Take before meals. 90 tablet 1 07/17/2024 01/01/2025 Discontinued(Reorder)Start: 06-22-2024 End: 88-86-2551bhgw 1 tablet by mouth before mealtimelevothyroxine (Synthroid) 75 MCG tablet Indications: Central hypothyroidism (CMS/HCC) Take 1 tablet(75 mcg) by mouth in the morning. Take before meals. 30 tablet 06/22/2024 07/17/2024 Discontinued (Reorder)meclizine hydrochloride 25 mg oral tablet (20 sources)Antiemetictake 1 tablet by mouth every eight hoursmeclizine (Antivert) 25 MG tablet Take 25 mg by mouth every 8 (eight) hours. Active Problems Active Problems Problem ClassificationProblemDateDocumented DateEpisodic/ChronicAllergic reactions (2 sources)Inflammatory dermatosis; Translations: [Dermatitis, unspecified] 76-34-3183CgkeubchWppouwo disorders (20 sources)Generalized anxiety disorder; Translations: [Generalized anxiety disorder]Onset: 295707-27-3690QpqyfgdVvjqhpwaoe and other anemia (20 sources)Heterozygous thalassemia; Translations: [Thalassemia minor]Onset: 174259-99-1607TfwzbkmLwzkyfwduo and other anemia (2 sources)Iron deficiency anemia secondary to inadequate dietary iron intake; Translations: [Other iron deficiency anemias]05-48-9905YvkxtzkiOdfwgqhmrbqxf and screening for infectious disease (1 source)Encounter for screening for human papillomavirus (HPV); Translations: [ENC SCREENING HUMAN PAPILLOMAVIRUS]Onset: 04-31-7255JtajnnsrAlsurgk and fatigue (20 sources)Fatigue; Translations: [Chronic fatigue, unspecified]Onset: 549075-86-5339KqxlxblYnimwxy and fatigue (2 sources)Ozrdsxj42-01-9167BlvwabnaCjyzbqhyrj disorders (20 sources)Menopausal and female climacteric states; Translations: [Menopausal flushing]Onset: 378132-50-5236YfffxnoCdjybvcvn disorders (2 sources)Amenorrhea; Translations: [Amenorrhea, unspecified]63-73-2194Arlidvr Nutritional deficiencies (2 sources)Iron deficiency; Translations: [Iron deficiency]62-98-3810Gksfuivc Other and unspecified benign neoplasm (2 sources)Senile angioma; Translations: [Hemangioma of skin and subcutaneous tissue]68-06-4852AflxlxsdBlfte non-traumatic joint disorders (2 sources)Joint pain; Translations: [Pain in unspecified joint]06-12-2024 EpisodicOther nutritional; endocrine; and metabolic disorders (20 sources)Insulin resistance; Translations: [Insulin resistance]Onset: 533497-27-7222KkekwrjLqiuw screening for suspected conditions (not mental disorders or infectious disease) (15 sources)Encounter for screening for osteoporosis; Translations: [Encounter for screening for malignant neoplasm of cervix]Onset: 47-72-8844CuqgvqcdSyxibifm codes; unclassified (1 source)Family history of malignant neoplasm of prostate; Translations: [FAMILY HX MALIG NEOPLASM PROSTATE]Onset: 02-92-4148ZdyacvtjOudvzuhp codes; unclassified (1 source)Family history of malignant neoplasm of other organs or systems; Translations: [FAM HX MALIG NEOPLASM OTH ORGN/SYS]Onset: 18-81-8808Hlgwyhdu Residual codes; unclassified (2 sources)Active advance directive (copy within chart) ; Translations: [Other specified health status]49-68-6447TaglyspyBgrsflg disorders (20 sources)Thyroid nodule; Translations: [Nontoxic single thyroid nodule]Onset: 495305-99-8745Nlloihy Past or Other Problems Problem ClassificationProblemDateDocumented DateEpisodic/ChronicConditions associated with dizziness or vertigo (20 sources)Vertigo; Translations: [Dizziness and giddiness]Onset: 04-01-2023 Resolved: 418974-08-3663AeyqclbnUoknacopyk disorders (20 sources)Drug therapy status; Translations: [Hormone replacement therapy] Onset: 517003-31-5452RrorzjxyCsrsl connective tissue disease (20 sources)Poor posture; Translations: [Abnormal posture]Onset: 04-01-2023 50-77-7856IgutygfxIvoyp ear and sense organ disorders (20 sources)Bilateral tinnitus; Translations: [Tinnitus, bilateral]Onset: 138738-76-4695QmascyieBltxfzkrd and history of mental health and substance abuse codes (20 sources)Ex-smoker; Translations: [Personal history of nicotine dependence] Onset: 213186-87-9385Gukitthc Results Test NameValueInterpretationReference RangeFacilityCOMPREHENSIVE METABOLIC PANEL on 26-83-4201Toxmmzn [Mass/Vol]4.4 g/dLNormal3.6-5.1Quest DiagnosticsComment on above:Performed By: #### 7600, 866, 11362 #### [facility] [place] [address] Bank Sales And Service Manager: Zafar Stanford MDAlbumin/Globulin [Mass ratio]1.9 {ratio}Normal 1.0-2.5Quest DiagnosticsComment on above:Performed By: #### 7600, 866, 65403 #### [facility] [place] [address] Bank Sales And Service Manager: Zafar Stanford MDALP [Catalytic activity/Vol]36 U/SFqi61-571 Quest DiagnosticsComment on above:Performed By: #### 7600, 866, 69616 #### [facility] [place] [address] Bank Sales And Service Manager: Zafar Stanford MDALT [Catalytic activity/Vol]14 U/LNormal6-29 Quest DiagnosticsComment on above:Performed By: #### 7600, 866, 74014 #### [facility] [place] [address] Bank Sales And Service Manager: Zafar Stanford MDAST [Catalytic activity/Vol]13 U/IJyoipe23-63 Quest DiagnosticsComment on above:Performed By: #### 7600, 866, 59552 #### [facility] [place] [address] Bank Sales And Service Manager: Zafar Stanford MDBilirubin [Mass/Vol]0.6 mg/dLNormal0.2-1.2 Quest DiagnosticsComment on above:Performed By: #### 7600, 866, 24632 #### [facility] [place] [address] Bank Sales And Service Manager: Zafar Stanford MDBUN/CREATININE RATIOSEE NOTE:Normal6-22Quest DiagnosticsComment on above:Result Comment: Not Reported: BUN and Creatinine are within reference range.Performed By: #### 7600, 866, 89829 #### [facility] of [address], [address] [place] [address] Bank Sales And Service Manager: aZfar Stanford MDCalcium [Mass/Vol]9.5 mg/dLNormal8.6-10.4Quest DiagnosticsComment on above:Performed By: #### 7600, 866, 18839 #### [facility] of [address], [address] [place] [address] Bank Sales And Service Manager: Zafar Stanford MDChloride [Moles/Vol]104 mmol/CVzijzv14-201 Quest DiagnosticsComment on above:Performed By: #### 7600, 866, 18810 #### [facility] [place] [address] Bank Sales And Service Manager: Zafar Stanford MDCO2 [Moles/Vol]30 mmol/PZdlsbw55-48Kscxq DiagnosticsComment on above:Performed By: #### 7600, 866, 24221 #### [facility] [place] [address] Bank Sales And Service Manager: Zafar MCBRIDEreatinine [Mass/Vol]0.68 mg/dLNormal0.50-1.05 Quest DiagnosticsComment on above:Performed By: #### 7600, 866, 70845 #### [facility] [place] [address] Bank Sales And Service Manager: Zafar Stanford MDGFR/1.73 sq M.predicted among non-blacks MDRD (S/P/Bld) [Vol rate/Area]99 mL/min/{1.73_m2}Normal> OR = 60[facility] Comment on above:Performed By: #### 7600, 866, 26997 #### [facility] [place] [address] Bank Sales And Service Manager: Zafar Stanford MDGlobulin (S) [Mass/Vol]2.3 g/dLNormal1.9-3.7 Quest DiagnosticsComment on above:Performed By: #### 7600, 866, 33466 #### [facility] [place] [address] Bank Sales And Service Manager: Zafar Stanford MDGlucose [Mass/Vol]87 mg/gKLigjkz38-87Xglol DiagnosticsComment on above:Result Comment: Fasting reference intervalPerformed By: #### 7600, 866, 55781 #### [facility] [place] [address] Bank Sales And Service Manager: Zafar Stanford MDPotassium [Moles/Vol]4.5 mmol/LNormal3.5-5.3 Quest DiagnosticsComment on above:Performed By: #### 7600, 866, 13492 #### [facility] [place] [address] Bank Sales And Service Manager: Zafar Stanford MDProtein [Mass/Vol]6.7 g/dLNormal6.1-8.1Quest DiagnosticsComment on above:Performed By: #### 7600, 866, 55940 #### [facility] [place] [address] Bank Sales And Service Manager: Zafar Stanford MDSodium [Moles/Vol]138 mmol/LXqkaty608-148Ewngw DiagnosticsComment on above:Performed By: #### 7600, 866, 87201 #### [facility] [place] [address] Bank Sales And Service Manager: Zafar Stanford MDUrea nitrogen [Mass/Vol]15 mg/dLNormal7-25 Quest DiagnosticsComment on above:Performed By: #### 7600, 866, 47730 #### [facility] [place] [address] Bank Sales And Service Manager: Zafar Stanford MDLIPID PANEL, STANDARDon 22-27-2159Oibbenzzubk [Mass/Vol]171 mg/dLNormal<200Quest DiagnosticsComment on above:Order Comment: FASTING:YES FASTING: YESPerformed By: #### 7600, 866, 46207 #### [facility] [address], [address] [place] [address] Bank Sales And Service Manager: Zafar MCBRIDEholesterol in HDL [Mass/Vol]43 mg/dLLow> OR = 50Quest DiagnosticsComment on above:Order Comment: FASTING:YES FASTING: YESPerformed By: #### 7600, 866, 55056 #### [facility] [address], [address] [place] [address] Bank Sales And Service Manager: Zafar MCBRIDEholesterol in LDL [Mass/Vol]112 mg/dLHigh Quest DiagnosticsComment on above:Order Comment: FASTING:YES FASTING: YESResult Comment: Reference range: <100 Desirable range <100 mg/dL for primary prevention; <70 mg/dL for patients with CHD or diabetic patients with > or = 2 CHD risk factors. LDL-C is now calculated using the Thony-Pretty calculation, which is a validated novel method providing better accuracy than the Friedewald equation in the estimation of LDL-C. Thony SS et al. JUAN DAVID. 2013;310(19): 4531-0385 (http://education.WritePath/faq/JKJ114)Performed By: #### 7600, 866, 70751 #### [facility] [address], [address] [place] [address] Bank Sales And Service Manager: Zafar Diaz.total/Cholesterol in HDL [Mass ratio]4.0 {ratio}Normal<5.0Quest DiagnosticsComment on above:Order Comment: FASTING:YES FASTING: YESPerformed By: #### 7600, 866, 80565 #### [facility] [address], [address] [place] [address] Bank Sales And Service Manager: Zafar POTTS HDL WVAJJQKFSUW578 mg/dL (calc)Normal<130 Quest DiagnosticsComment on above:Order Comment: FASTING:YES FASTING: YESResult Comment: For patients with diabetes plus 1 major ASCVD risk factor, treating to a non-HDL-C goal of <100 mg/dL (LDL-C of <70 mg/dL) is considered a therapeutic option.Performed By: #### 7600, 866, 95307 #### [facility] [address], [address] [place] [address] Bank Sales And Service Manager: Zafar Stanford MDTriglyceride [Mass/Vol]71 mg/dLNormal<150Quest DiagnosticsComment on above:Order Comment: FASTING:YES FASTING: YESPerformed By: #### 7600, 866, 06198 #### [facility] [address], [address] [place] [address] Bank Sales And Service Manager: Zafar Stanford MDT4, FREE 96-86-0040Cnzx T4 [Mass/Vol]1.3 ng/dLNormal0.8-1.8Quest DiagnosticsComment on above:Performed By: #### 7600, 866, 29057 #### [facility] [place] [address] Bank Sales And Service Manager: Zafar Stanford MDDHEA SULFATEon 83-36-8827GPOR YZUTPWR85 mcg/dL Normal9-118Quest DiagnosticsComment on above:Performed By: #### 745, 4021, 402 #### [facility] [place] [address] Bank Sales And Service Manager: Zafar Stanford MD #### 88100 #### [facility] [address] [facility] [place], [place] Bank Sales And Service Manager: Antony Verduzco M.D.,PhD #### 08361 #### [facility], [address] [place] [address] Bank Sales And Service Manager: Roro Fung MD,PhD,MBAESTRADIOLon 76-41-2223BHIEIOJUO77 pg/mLNormalQuest DiagnosticsComment on above:Result Comment: Reference Range Follicular Phase: 19-144 Mid-Cycle: 64-357 Luteal Phase: 56-214 Postmenopausal: < or = 31 Reference range established on post-pubertal patient population. No pre-pubertal reference range established using this assay. For any patients for whom low Estradiol levels are anticipated (e.g. males, pre-pubertal children and hypogonadal/post-menopausal females), the [facility] Estradiol, Ultrasensitive, LCMSMS assay is recommended (order code 08728). Please note: patients being treated with the drug fulvestrant (Faslodex(R)) have demonstrated significant interference in immunoassay methods for estradiol measurement. The cross reactivity could lead to falsely elevated estradiol test results leading to an inappropriate clinical assessment of estrogen status. [facility] order code 05017-Bbwybhsfn, Ultrasensitive LC/MS/MS demonstrates negligible cross reactivity with fulvestrant.Performed By: #### 745, 4021, 402 #### [facility] [address], [address] [place] [address] Bank Sales And Service Manager: Zafar Stanford MD #### 45402 #### [facility] [address] [place] [address] Bank Sales And Service Manager: Antony Verduzco M.D.,PhD #### 09422 #### [facility]/[address] [address] Bank Sales And Service Manager: Roro Fung MD,PhD,MBAESTRIOL, SERUMon 11-56-1892DMFSUVY, SERUM<0.10NormalWipster DiagnosticsComment on above:Result Comment: Adult Reference Ranges for Estriol: Adult Males: < or = 0.18 ng/mL Adult Females (non): < or = 0.21 ng/mL : First Trimester: < or = 2.50 ng/mL Second Trimester: < or = 9.60 ng/mL Third Trimester: < or = 14.60 ng/mL This test was developed and its analytical performance characteristics have been determined by [facility]. It has not been cleared or approved by the FDA. This assay has been validated pursuant to the CLIA regulations and is used for clinical purposes.Performed By: #### 745, 4021, 402 #### [facility] [address], [address] [place], [place] [address] Bank Sales And Service Manager: Zafar Stanford MD #### 77371 #### [facility]/[address] [place], [place] Bank Sales And Service Manager: Antony Verduzco M.D.,PhD #### 43522 #### [facility] [address] [place] [address] Bank Sales And Service Manager: Roro Fung MD,PhD,MBAPROGESTERONEon 29-38-3911YUMLCIJOGNZI 2.1 ng/mLNormalQuest DiagnosticsComment on above:Result Comment: Reference Ranges Female Follicular Phase < 1.0 Luteal Phase 2.6-21.5 Post menopausal < 0.5 1st Trimester 4.1-34.0 2nd Trimester 24.0-76.0 3rd Trimester 52.0-302.0Performed By: #### 745, 4021, 402 #### [facility] [place] [address] [facility], [address] Bank Sales And Service Manager: Zafar Stanford MD #### 49009 #### [facility]/[address] [place], [place] Bank Sales And Service Manager: Antony Verduzco M.D.,PhD #### 02760 #### [facility] [address] [place] [address] Bank Sales And Service Manager: Roro Fung MD,PhD,MBATESTOSTERONE, TOTAL, MSon 04-29-2025 TESTOSTERONE, TOTAL, MS9 ng/dLNormal-Quest DiagnosticsComment on above:Result Comment: For additional information, please refer to http://education.Compact Particle Acceleration.CloudPassage/faq/ PhafjTqvhjyiyklyvDNNZBEBLJ897 (This link is being provided for informational/ educational purposes only.) This test was developed and its analytical performance characteristics have been determined by [facility] [place], [place]. It has not been cleared or approved by the U.S. Food and Drug Administration. This assay has been validated pursuant to the CLIA regulations and is used for clinical purposes.Performed By: #### 745, 4021, 402 #### [facility] [address], [address] [place] [address] Bank Sales And Service Manager: Zafar Stanford MD #### 88535 #### [facility] [address] [facility] [place], [place] Bank Sales And Service Manager: Antony Verduzco M.D.,PhD #### 58310 #### [facility] [address] [place] [address] Bank Sales And Service Manager: Roro Fung MD,PhD,MBAMETRO IRON AND TIBCon 12-16-2024 Interpretation and review of laboratory resultsAbnormalNOMS HealthcareTB IRON 113 ug/dL50.0 - 170.0 ug/dLNOGA HealthcareTB PERCENT IRON TZBWUSKYMR86.9 %NOMS HealthcareTB TOTAL IRON BINDING QZOHKTYQ763 ug/kOOar278.0 - 450.0 ug/dLNOOzarks Medical CenterCLINISYNCNOMS [facility] BRAIN WO CONTRASTon 82-76-5264CW BRAIN WO CONTRASTMR BRAIN WO CONTRAST Reason for exam: Hypothyroidism, no other current complaints Technique: Sagittal T1, axial fast spin echo, FLAIR, diffusion gradient-echo sequences were performed through the brain. Findings: Cerebrum: No abnormal signal is identified. There is no evidence of any mass, edema, mass effect ormidline shift. No signs of hemorrhage or extra-axial fluid collections. The arteries at the base ofthe brain are unremarkable. Midline structures: Intact. Posterior fossa: Unremarkable. No abnormal signal or mass effect identified. Gradient-echo/diffusion sequences: Unremarkable. No abnormal signal is apparent. No evidence of ischemia or infarct. Petrous bones and IACs: No masses or destruction. Normal mastoid sinuses. Sinuses: Normal. No evidence of sinusitis. Extracranial structures: Unremarkable. Impression: Normal study. Dictated on: 07/26/2024 9:20 AM This report has been electronically signed and approved by the interpreting Radiologist.NormalNot AvailableALL THYROXINE (T4) FREEon 78-71-8685Dlkn T4 [Mass/Vol]0.94 ng/dL0.76 - 1.46 ng/dLNOMS HealthcareCLINISYNCNOMS HealthcareUS Thyroid glandon 94-83-8673[address] [address] Ultrasound Report Signed Patient: SONAL AGUILLON MR#: [id number] : 1965 Acct:[id number] Age/Sex: 58 / F ADM Date: 06/30/24 Loc: US Attending Dr: JASON PHELAN Ordering Physician: JASON PHELAN Date of Service: 06/30/24 Procedure(s): US thyroid Accession Number(s): [id number] cc: JASON PHELAN [address] [address] Patient Name: SONAL AGUILLON MRN: [id number] date: 1965 Sex: F Assigned Patient Location: US Current Patient Location: Accession/Order Number: [id number] Exam Date: 06/30/2024 10:55 Report Date: 07/03/2024 11:12 At the request of: JASON PHELAN Procedure: US thyroid EXAMINATION: US thyroid HISTORY: Chronic Fatigue, Thyroid Nodule COMPARISON: No relevant comparison available. TECHNIQUE: Sonographic images of the thyroid gland were obtained. FINDINGS: The right thyroid lobe is normal in size, contour and echotexture measuring 4.9 x 1.6 x 1.4 cm. No focal nodules Thyroid isthmus is normal measuring 2 mm. No nodules The left thyroid lobe is normal in size, contour and echotexture measuring 4.2 x 1.5 x 1.4 cm. No focal nodules US/US thyroid IMPRESSION: Normal exam TI-RADS: TI-RADS 1: Normal thyroid gland. No focal lesion. Electronically authenticated by: CHANTE CORTEZ Date: 07/03/2024 11:12 Dictated By: Chante Cortez M.D. Signed By: 07/03/24 1114 DD/ 111 TD/TT: Account Director:TBHRadiology, Radiologist, MD - 07/03/[address] [address] Ultrasound Report Signed Patient: SONAL AGUILLON MR#: [id number] : 1965 Acct:[id number] Age/Sex: 58 / F ADM Date: 06/30/24 Loc: US Attending Dr: JASON PHELAN Ordering Physician: JASON PHELAN Date of Service: 06/30/24 Procedure(s): US thyroid Accession Number(s): [id number] cc: JASON PHELAN [place] [address] Patient Name: SONAL AGUILLON MRN: [id number] date: 1965 Sex: F Assigned Patient Location: US Current Patient Location: Accession/Order Number: [id number] Exam Date: 06/30/2024 10:55 Report Date: 07/03/2024 11:12 At the request of: JASON PHELAN Procedure: US thyroid EXAMINATION: US thyroid HISTORY: Chronic Fatigue, Thyroid Nodule COMPARISON: No relevant comparison available. TECHNIQUE: Sonographic images of the thyroid gland were obtained. FINDINGS: The right thyroid lobe is normal in size, contour and echotexture measuring 4.9 x 1.6 x 1.4 cm. No focal nodules Thyroid isthmus is normal measuring 2 mm. No nodules The left thyroid lobe is normal in size, contour and echotexture measuring 4.2 x 1.5 x 1.4 cm. No focal nodules US/US thyroid IMPRESSION: Normal exam TI-RADS: TI-RADS 1: Normal thyroid gland. No focal lesion. Electronically authenticated by: CHANTE CORTEZ Date: 07/03/2024 11:12 Dictated By: Chante Cortez M.D. Signed By: 07/03/24 111 DD/ 111 TD/TT: Account Director: ZOIE HealthcareRadiology Study observation (narrative)ZOIE BaldwinUS Thyroid glandOrdered By: Radiologist Radiology on 47-86-0285JDVN Healthcare Work Phone: aLL FOLLICLE STIMULATING HORMONEon 13-91-8607DLM42.3 [facility] HealthcareComment on above:Adult Female Range Follicular phase 3.5 - 12.5 Ovulation phase 4.7 - 21.5 Luteal phase 1.7 - 7.7 Postmenopausal 25.8 - 134.8 Performed at: [facility] [address] [id number] Packer: Lalit Burden PhD, Phone: [phone] [facility] CORTISOLon 60-98-4502LKC CORTISOL9.6 ug/dL6.2 - 19.4 ug/dLNOGA Healthcare Comment on above:Please Note: The reference interval and flagging for this test is for an AM collection. If this is a PM collection please use: Cortisol PM: 2.3-11.9 No Panel Informationon 20-20-9881GUQQXMGURKKDW HealthcareALL LIPID PROFILE (FASTING)on 88-15-4992JWNP HDL RATIO3.7NOGA HealthcareComment on above:3.3 - 4.4 LOW RISK 4.4 - 7.1 AVERAGE RISK 7.1 - 11.0 MODERATE RISK >11.0 HIGH RISK Cholesterol [Mass/Vol]175 mg/dLNINF - 200 mg/dLNOMS HealthcareCholesterol in HDL [Mass/Vol]47 mg/dL40 - 60 mg/dLNOGA HealthcareComment on above:> or =60 mg/dl - LOW CARDIOVASCULAR RISK <40 mg/dl - HIGH CARDIOVASCULAR RISK Magnesium [Mass/Vol]118 mg/dLNOGA HealthcareComment on above:<100 mg/dl OPTIMAL 100-129 mg/dl NEAR OR ABOVE OPTIMAL 130-159 mg/dl BORDERLINE HIGH 160-189 mg/dl HIGH >190 mg/dl VERY HIGH Magnesium [Mass/Vol]10 mg/dLNOGA HealthcareTriglyceride [Mass/Vol]50 mg/dLNINF - 150 mg/dLNOGA HealthcareCCF CMP (CMP) (FOR REMOTE [facility] USE)on 04-15-4150Llvzguh [Mass/Vol]4 g/dL3.4 - 5.0 g/dLNOMS HealthcareALBUMIN GLOBULIN RATIO1.2NOMS HealthcareALP [Catalytic activity/Vol]36 U/LLow46 - 116 U/LNOMS HealthcareALT [Catalytic activity/Vol]18 U/L14 - 59 U/LNOMS HealthcareAnion gap [Moles/Vol] 11.8 mmol/LNOMS HealthcareAST [Catalytic activity/Vol]14 U/LLow15 - 37 U/LNOMS HealthcareBilirubin [Mass/Vol]0.7 mg/dL0.2 - 1.0 mg/dLNOMS HealthcareCalcium [Mass/Vol]9 mg/dL8.5 - 10.1 mg/dLNOMS HealthcareChloride [Moles/Vol]106 mmol/L98 - 107 mmol/LNOMS HealthcareCO2 [Moles/Vol]30.6 mmol/L21.0 - 32.0 mmol/LNOMS HealthcareCreatinine [Mass/Vol]0.75 mg/dL0.55 - 1.02 mg/dLNOMS Healthcare GFR/1.73 sq M.predicted CKD-EPI (S/P/Bld) [Vol rate/Area]>60>=60 mL/min/1.73m 2 NOMS HealthcareGlobulin (S) [Mass/Vol]3.4 g/dLNOMS HealthcareGlucose [Mass/Vol] 90 mg/dL74 - 106 mg/dLNOMS HealthcareInterpretation and review of laboratory resultsAbnormalNOMS HealthcarePotassium [Moles/Vol]4.4 mmol/L3.5 - 5.1 mmol/L NOMS HealthcareProtein [Mass/Vol]7.4 g/dL6.4 - 8.2 g/dLNOMS HealthcareSodium [Moles/Vol]144 mmol/L136 - 145 mmol/LNOMS HealthcareTBH EGFR-NON AF SOMALI>60 >=60 mL/min/1.73m 2NOMS HealthcareUrea nitrogen [Mass/Vol]15 mg/dL7.0 - 18.0 mg/dLNOGA HealthcareUrea nitrogen/Creatinine [Mass ratio]20 mg/mgNOMS Healthcare No Panel Informationon 40-06-7083WTFUIIPSFBHWC HealthcareALL T3 REVERSEon 30-01-3996RWZHJEJ T3, SERUM12.5 ng/dL9.2 - 24.1 ng/dLNOGA HealthcareComment on above:This test was developed and its performance characteristics determined by [facility]. It has not been cleared or approved by the Food and Drug Administration. Performed at: [address] [id number] Packer: Margaret Rene MD, Phone: [phone] [facility] T3 TOTALon 81-68-7521Masssbwmxxbrjy and review of laboratory results AbnormalNOMS HealthcareTBH TRIIODOTHYRONINE (T3)61 ng/vTJqvnckyo41 - 180 ng/dL [facility] HealthcareComment on above:Performed at: [address] [id number] Packer: Lalit Burden PhD, Phone: [phone] No Panel Informationon 68-06-2733XKIXHGSVQHSIT HealthcareTB THYROID ANTIBODIES on 75-77-0687QHUNERQXVGERE ANTIBODY<1.0NOGA HealthcareComment on above: Thyroglobulin Antibody measured by Dave Clyde Methodology It should be noted that the presence of thyroglobulin antibodies may not be pathogenic nor diagnostic, especially at very low levels. The assay precision inspector has found that four percent of individuals without evidence of thyroid disease or autoimmunity will have positive TgAb levels up to 4 IU/mL. Performed at: [address] [id number] Packer: Lalit Burden PhD, Phone: [phone] THYROID PEROXIDASE (TPO) SN80DZREScotland County Memorial Hospital MISCELLANEOUS TESTon 06-14-2024 MISCELLANEOUS TESTCOMMENT.[facility] HealthcareComment on above:Test Ordered: [id number] SWATHI, IFA Rfx 11 Manuel Multiplex SWATHI by IFA Rfx Titer/Pattern Negative CB Reference Range: . Negative <1:80 Borderline 1:80 Positive >1:80 ICAP nomenclature: AC-0 For more information about Hep-2 cell patterns use ANApatterns.org, the official website for the International Consensus on Antinuclear Antibody (SWATHI) Patterns (ICAP). Performed at: [address] [id number] Packer: Lalit Burden PhD, Phone: [phone] SWATHI by IFA, Reflex to 11-biomarker Profile, dsDNA, CHRISTIAN SCIENCE NURSE, Sm, CLINISYNCNOMS HealthcareALL CBC WITH AUTO DIFFon 04-05-3180FMOOQVIUV ABSOLUTE KYSJ9VRQG HealthcareBasophils/100 WBC (Bld)0.4 %0.2 - 2.0 %[facility] Eosinophils/100 WBC (Bld)2.1 %0.9 - 7.0 %NOMS HealthcareErythrocyte distribution width (RBC) [Ratio]15.9 %High11.0 - 15.0 %NOM HealthcareHematocrit (Bld) [Volume fraction]34.2 %Low36.0 - 48.0 %[facility] HealthcareHemoglobin (Bld) [Mass/Vol]10.5 g/dLLow12.0 - 16.0 g/dLNOGA HealthcareIMMATURE GRANULOCYTES ABS AUTO0.02NOOzarks Medical CenterImmature granulocytes/100 WBC (Bld)0.3 %0.0 - 0.5 %[facility] HospitalInterpretation and review of laboratory resultsAbnormalNOOzarks Medical Center LYMPHOCYTES ABSOLUTE AUTO2.2NOMS Doctors HospitalLymphocytes/100 WBC (Bld)28.9 %20.5 - 60.0 %[facility] InstituteH (RBC) [Entitic mass]21.3 pgLow26.7 - 34.0 pgNOOzarks Medical CenterMCHC (RBC) [Mass/Vol]30.7 g/dL29.9 - 35.2 g/dLSt. Lukes Des Peres HospitalMCV (RBC) [Entitic vol]69.2 fLLow81.0 - 99.0 fLSt. Lukes Des Peres HospitalMONOCYTES ABSOLUTE AUTO0.5 [facility] HospitalMonocytes/100 WBC (Bld)6.9 %1.7 - 12.0 %[facility] NEUTROPHILS ABSOLUTE AUTO4.7NOOzarks Medical CenterNeutrophils/100 WBC (Bld)61.4 %43.0 - 75.0 %[facility] HospitalPlatelet mean volume (Bld) [Entitic vol]10.3 fL9.5 - 13.5 fLSt. Lukes Des Peres HospitalTBH EO #0.2NOMS Doctors HospitalTB SHT360TIGS [facility] RBC4.94 [facility] HospitalTB WBC7.7NOOzarks Medical CenterCLINISYNCNSSM Health Cardinal Glennon Children's HospitalMM TOMOSYNTHESIS SCREENING BIon 52-56-0457RgzLorain, [place] [address] Mammography Report Signed Patient: SONAL AGUILLON MR#: [id number] : 1965 Acct:[id number] Age/Sex: 58 / F ADM Date: 06/12/24 Loc: MAMMO Attending Dr: JASON PHELAN Ordering Physician: JASON PHELAN Results: Date of Service: 06/12/24 Follow Up: Procedure(s): MM tomosynthesis screening BI Accession Number(s): [id number] cc: JASON PHELAN Patient Name: SONAL AGUILLON MR#: [id number] : 1965 Exam Date: 06/12/2024 Ordering Doctor: DR JASON PHELAN . RADIOLOGY REPORT PROCEDURE: MM TOMOSYNTHESIS SCREENING BI COMPARISON: MG MAMM SCREEN 3D [place] CAD, 06/01/2022. MM TOMOSYNTHESIS SCREENING BI, 06/07/2023. INDICATIONS: Screening for malignant neoplasm Calculator Name NCI Breast Cancer Risk Assessment Tool 5 Year Breast Cancer Risk 1.60% Lifetime Breast Cancer Risk 8.10% Personal Breast Cancer No Personal Ovarian Cancer No Treatments None Family Cancers Father with prostate cancer at age 55; Father with pancreatic cancer at age 60. LOCATION: [facility] BREAST COMPOSITION: There are scattered areas of fibroglandular density. FINDINGS: DIAGNOSTIC CATEGORY 1--NEGATIVE. NO [...] BIOPSIED. Dictated by: Chante Cortez MD on 06/12/2024 at 14:52 Approved by: Chante Cortez MD on 06/12/2024 at 14:56 Dictated By: Chante Cortez M.D. Signed By: 06/12/24 1457 DD/ 1456 TD/TT: Account Director:TBHRadiology, RadiologistMD - 06/12/2024 [place] [address] Mammography Report Signed Patient: SONAL AGUILLON MR#: [id number] : 1965 Acct:[id number] Age/Sex: 58 / F ADM Date: 06/12/24 Loc: MAMMO Attending Dr: JASON PHELAN Ordering Physician: JASON PHELAN Results: Date of Service: 06/12/24 Follow Up: Procedure(s): MM tomosynthesis screening BI Accession Number(s): [id number] cc: JIMENEZRAFIQJASON Patient Name: SONAL AGUILLON MR#: [id number] : 1965 Exam Date: 06/12/2024 Ordering Doctor: DR JASON PHELAN . RADIOLOGY REPORT PROCEDURE: MM TOMOSYNTHESIS SCREENING BI COMPARISON: MG MAMM SCREEN 3D [place]ON CAD, 06/01/2022. MM TOMOSYNTHESIS SCREENING BI, 06/07/2023. INDICATIONS: Screening for malignant neoplasm Calculator Name NCI Breast Cancer Risk Assessment Tool 5 Year Breast Cancer Risk 1.60% Lifetime Breast Cancer Risk 8.10% Personal Breast Cancer No Personal Ovarian Cancer No Treatments None Family Cancers Father with prostate cancer at age 55; Father with pancreatic cancer at age 60. LOCATION: [facility] BREAST COMPOSITION: There are scattered areas of fibroglandular density. FINDINGS: DIAGNOSTIC CATEGORY 1--NEGATIVE. NO [...] BIOPSIED. Dictated by: Chante Cortez MD on 06/12/2024 at 14:52 Approved by: Chante Cortez MD on 06/12/2024 at 14:56 Dictated By: Chante Cortez M.D. Signed By: 06/12/24 1457 DD/ 1456 TD/TT: Account Director: [facility] HospitalRadiology Study observation (narrative)[facility] TOMOSYNTHESIS SCREENING BIOrdered By: Radiologist Radiology on 59-55-3386VQKJSt. Lukes Des Peres Hospital Work Phone: XR DEXA BONE DENSITYon 43-70-2453UW DEXA BONE DENSITY EXAMINATION: XR DEXA BONE [...] Electronically authenticated by: CHANTE CORTEZ Date: 2022-06-29 17:06[facility] HospitalOG PANEL 2: 30 to 65on 06-06-2022..NormalThe [facility] HospitalComment on above:Result Comment: Performed at: WBPerformed By: #### [id number] #### [facility] [address] [place] [address] Dr. May TaborAge Gdln ACOG Vmnqyor09-95NlldzmXdyOhioHealth Shelby HospitalComment on above:Performed By: #### [id number] #### [facility] [address] [place] [address] Dr. May TaborDIAGNOSIS:CommentKing's Daughters Medical Center [place] on above: Result Comment: NEGATIVE FOR INTRAEPITHELIAL LESION OR MALIGNANCY. Performed at: WBPerformed By: #### [id number] #### [facility] [address] [place] [address] Dr. May TaborHPV AptimaNegativeNormalNegativeFirelands Regional Medical Center South CampusComstraith hospital for special surgery on above:Result Comment: This nucleic acid amplification test detects fourteen high-risk HPV types (16,18,31,33,35,39,45,51,52,56,58,59,66,68) without differentiation. Performed at: =GPerformed By: #### [id number] #### [facility] [address] [place] [address] Dr. May TaborMethodology:CommentKing's Daughters Medical Center [place] on above: Result Comment: This liquid based ThinPrep(R) pap test was screened with the use of an image guided system. Performed at: WBPerformed By: #### [id number] #### [facility] [address] [place] [address] Dr. May TaborNote:CommentKing's Daughters Medical Center [place] on above:Result Comment: The Pap smear is a screening test designed to aid in the detection of premalignant and malignant conditions of the uterine cervix. It is not a diagnostic procedure and should not be used as the sole means of detecting cervical cancer. Both false-positive and false-negative reports do occur. . Performed at: Performed By: #### [id number] #### [facility] [address] [address] [address] May TaborPerformed by:CommentKing's Daughters Medical Center [place] on above: Result Comment: Marlee Joyce, Php Web Developer (ASCP) Performed at: WBPerformed By: #### [id number] #### [facility] [address] [address] [address] May TaborSpecimen adequacy:CommentKing's Daughters Medical Center [place] on above:Result Comment: Satisfactory for evaluation. Endocervical and/or squamous metaplastic cells (endocervical component) are present. Performed at: Performed By: #### [id number] #### [facility] [address] [place] [address] Dr. May TaborMG MAMM SCREEN 3D ALLYSON CADon 50-80-8934ON MAMM SCREEN 3D ALLYSON CAD Patient: SONAL AGUILLON Exam Date: 06/01/2022 : 1965 Gender:F Ordering : DR JASON PHELAN . Admission #: [id number] Family : Order #: [id number] CLICK HERE TO VIEW EXAM RADIOLOGY REPORT [...] at age 58. LOCATION: [facility] BREAST COMPOSITION: Scattered areas fibroglandular density. [...] by: Chante Cortez MD on 06/01/2022 at 14:14[facility] Vital Signs Date TimeVital SignValuePerforming WxedstckfJryhcroq25-30-0243 10:55-0500Body .6 Lois Phelan MD Work Phone: [phone] [place], [place] [address]11-10-2025 10:55-0500Body mass index (BMI) [Ratio]24.2 kg/q5DptptzJason Phelan MD Work Phone: [phone] [place], [place] 847[address]11-10-2025 10:55-0500Body fdvcug40.96 kgJason Phelan MD Work Phone: [phone] [place], [place] 847[address]05-12-2025 15:54-0400Body zaxtgk370.6 Lois Phelan MD Work Phone: [phone] [place], [place] [address]05-12-2025 15:54-0400Body mass index (BMI) [Ratio]25.06 kg/w9HeiekdJason Phelan MD Work Phone: [phone] [place], [place] [address]47[address]05-12-2025 15:54-0400Body xsjpdi30.22 kgJason Phelan MD Work Phone: [phone] [place], [place] [address]47[address]01-28-2025 15:26-0500Body ngqzoh976.6 Lois Phelan MD Work Phone: [phone] [place], [place] [address]01-28-2025 15:26-0500Body mass index (BMI) [Ratio]25.06 kg/q7ByythuJason Phelan MD Work Phone: [phone] [place], [place] [address]47[address]01-28-2025 15:26-0500Body xsjjuy78.22 kgJason Phelan MD Work Phone: [phone] [place], [place] [address]47[address]10-28-2024 15:24-0400Body yuidpa688.6 Lois Phelan MD Work Phone: [phone] [place], [place] [address]10-28-2024 15:24-0400Body mass index (BMI) [Ratio]25.15 kg/a5LdqbceJason Phelan MD Work Phone: [phone] HospitalKgflmdmppa22-11-5227 15:24-0400Body oocqox85.45 kgJason Phelan MD Work Phone: [phone] HospitalItbevemypa71-81-1343 09:26-0400Body .6 cmEedilia Phelan MD Work Phone: [phone] [place] [address]10-21-2024 09:26-0400Body mass index (BMI) [Ratio]25.15 kg/o3QhmlieJason Phelan MD Work Phone: [phone] InstituteCho[facility] HospitalIolzcjltbx91-22-2263 09:26-0400Body hlevxg88.45 kgJason Phelan MD Work Phone: [phone] HospitalWkouffduna61-92-9837 09:26-0400Diastolic blood kraliyij51 mm[Hg]Jason Phelan MD Work Phone: [phone] [place], [place] [address]Zwycgahpld00-17-5848 09:26-0400Heart rate68 /min Jason Phelan MD Work Phone: [phone] HospitalBbajgnrqdg35-20-4689 09:26-8493IzL1% (BldA) [Mass fraction]98 %Jason Phelan MD Work Phone: [phone] HospitalAysxqqumnf47-75-1526 09:26-0400Systolic blood ppinpqan642 mm[Hg]Jason Phelan MD Work Phone: [facility] Encounters Encounter DateEncounter TypeCare ProviderFacilityStart: 07-02-2025 End: 94-24-1131Gqeyrg flowsheetJason Phelan MD Work Phone: [facility] [address] Family MedicineStart: 07-02-2025 End: 36-43-5700Lshlzz flowsheetJason Phelan MD Work Phone: [facility] [address] Family MedicineStart: 07-02-2025 End: 69-50-9780Zfsrdpa encounter procedureJason Phelan MD Work Phone: [facility] [place] [address] [facility] MedicineComment on above:Central hypothyroidism; Chronic fatigueStart: 07-02-2025 End: 85-44-7426pxeykdwzxgFNNUBF J HEMEYERNot AvailableStart: 06-26-2025 End: 03-65-8795Kccpfp flowsZev Phelan MD Work Phone: [facility] [place] [address] [facility] MedicineStart: 06-26-2025 End: 44-66-8539Lrrfny flowsZev Phelan MD Work Phone: [facility] [place] [address] [facility] MedicineStart: 06-26-2025 End: 04-31-9878pafjhnracdCYDCBF J HEMEYERNot AvailableStart: 04-30-2025 End: 85-24-4898Aoywzw-up encounterEdmojgan Phelan MD Work Phone: [facility] [place] [address] [facility] CenterComment on above:DHEA- sulfate, Estradiol, ESTRIOL, SERUM, Additional followed-up results: 2Start: 03-13-2025 End: 56-18-4049Bimuiw outpatient visit 15 minutesEdmojgan Phelan MD Work Phone: [facility] CI FM 100Comment on above:Generalized anxiety disorder (Primary Dx); Former smoker; Hot flashes due to menopause; Hormone replacement therapy; Chronic fatigueStart: 03-13-2025 End: 76-24-2957uuvknaerqwHXJMSI J HEMEYERNot AvailableStart: 03-13-2025 End: 98-71-1026Wrbrxj flowsZev Phelan MD Work Phone: [facility] CI FM 100Start: 03-13-2025 End: 28-20-8142Iwirpp Braydon Phelan MD Work Phone: [facility] FM 100Start: 01-01-2025 End: 08-77-2099Ygpakq outpatient visit 25 minutesJason Phelan MD Work Phone: [facility] CI FM 100Comment on above:Central hypothyroidism (CMS/HCC) (Primary Dx); Chronic fatigue; Former smoker; Insulin resistance; Heterozygous thalassemiaStart: 01-01-2025 End: 31-28-1629ejeunfyldaFLELRN J HEMEYERNot AvailableStart: 01-01-2025 End: 42-28-5956Ugzwrz flowsZev Phelan MD Work Phone: [facility] CI FM 100Start: 01-01-2025 End: 72-90-6975Tervwh flowsZev Phelan MD Work Phone: [phone] CI FM 100Start: 12-16-2024 End: 95-64-7810Evebttnop Result Tona Phelan MD Work Phone: [facility] External Department UnsolicitedStart: 12-16-2024 End: 09-44-2257Xvugdpinh Result Tona Phelan MD Work Phone: NOJN External Department UnsolicitedStart: 10-19-2024 End: 05-10-0061Qabdax OnlyJasno Phelan MD Work Phone: [phone] CI FM 100Start: 10-12-2024 End: 61-21-6554BjrmkuIcaaai J Hemeyer MD Work Phone: [facility] BNS FMComment on above:Menopausal syndrome; Hot flashes due to menopauseStart: 09-19-2024 End: 08-45-4549Kumooi outpatient visit 10 minutesJason Phelan MD Work Phone: [facility] CI FM 100Comment on above:Generalized anxiety disorder (CMS/HCC); Former smokerStart: 09-19-2024 End: 90-46-9879tclmijpzkiFPIJDS J HEMEYERNot AvailableStart: 09-19-2024 End: 71-42-0010Xftuen flowsZev Phelan MD Work Phone: [facility] CI FM 100Start: 09-19-2024 End: 17-81-3161Zgxboq flowsZev Phelan MD Work Phone: [facility] CI FM 100Start: 07-26-2024 End: 64-07-7315uxzreuvzooUCGAGJ J HEMEYERNot AvailableStart: 07-17-2024 End: 83-21-2207Owdyaf flowsheetJason Phelan MD Work Phone: [facility] CI FM 100Start: 07-17-2024 End: 29-55-8317Yvcfda flowsheetJason Phelan MD Work Phone: [phone] CI FM 100Start: 07-17-2024 End: 33-61-9828Zqutnr outpatient visit 15 minutesEdmojgan Phelan MD Work Phone: [phone] CI FM 100Comment on above:Central hypothyroidism (CMS/HCC) (Primary Dx); Chronic fatigue; Former smoker; Iron deficiencyStart: 07-17-2024 End: 66-07-6140lcgrydpuybEFOZKC J HEMEYERNot AvailableStart: 07-10-2024 End: 70-93-3504Ctlblvoqm Result EncounterEdmojgan Phelan MD Work Phone: [facility] External Department UnsolicitedStart: 07-10-2024 End: 74-16-0175Rtmhpcjdu Result EncounterEdmojgan Phelan MD Work Phone: [facility] External Department UnsolicitedStart: 07-03-2024 End: 35-36-4324Gbshxszjh Result Tona Phelan MD Work Phone: [facility] External Department UnsolicitedStart: 07-03-2024 End: 44-87-9577Przgxqxxb Result EncounterEdmojgan Phelan MD Work Phone: [facility] External Department UnsolicitedStart: 07-03-2024 End: 15-73-8450Bruhqmpun encounterEdmojgan Phelan MD Work Phone: [facility] CI FM 100Start: 07-01-2024 End: 35-75-0750Necfwrtpi Result EncounterEdmojgan Phelan MD Work Phone: [facility] External Department UnsolicitedStart: 07-01-2024 End: 40-30-2924Uycyqbqcx Result Tona Phelan MD Work Phone: NOQO External Department UnsolicitedStart: 06-30-2024 End: 23-78-0371Vcqijwhar Result Tona Phelan MD Work Phone: NOWG External Department UnsolicitedStart: 06-30-2024 End: 18-05-3846Xzhaceydw Result Tona Phelan MD Work Phone: NOZM External Department UnsolicitedStart: 06-22-2024 End: 67-91-7728Cqdlbo outpatient visit 25 minutesJason Phelan MD Work Phone: [phone] CI FM 100Comment on above:Amenorrhea (Primary Dx); Central hypothyroidism (CMS/HCC); Chronic fatigue; Iron deficiency anemia secondary to inadequate dietary iron intakeStart: 06-22-2024 End: 87-99-9602Vqehin Braydon Phelan MD Work Phone: [phone] CI FM 100Start: 06-22-2024 End: 56-39-6162Rzwiyr Braydon Phelan MD Work Phone: [facility] FM 100Start: 06-19-2024 End: 79-42-7744Zjbeuz outpatient visit 25 minutesJason Phelan MD Work Phone: [facility] CI FM 100Comment on above:Hot flashes due to menopause (Primary Dx); Hormone replacement therapyStart: 06-19-2024 End: 88-46-9288Bpjrjd Braydon Phelan MD Work Phone: [facility] CI FM 100Start: 06-19-2024 End: 49-90-6284Wgtpkl Braydon Phelan MD Work Phone: [facility] CI FM 100Start: 06-12-2024 End: 54-18-3563Vtniqu Braydon Phelan MD Work Phone: [facility] CI FM 100Start: 06-12-2024 End: 56-85-4297Bbhbtzjarad Phelan MD Work Phone: [facility] CI FM 100Start: 06-12-2024 End: 60-76-7456Jvvyqzqao Result EncounterEdmojgan Phelan MD Work Phone: NOJT External Department UnsolicitedStart: 06-12-2024 End: 30-17-4516Lwmplxh encounter statusEdmojgan Phelan MD Work Phone: [facility] Work Phone: Start: 06-12-2024 End: 08-10-7281Swvmdjoi preventive med est patient 40-64yrsEedilia Phelan MD Work Phone: [facility] CI FM 100Comment on above:Encounter for wellness examination in adult; Advance directive in chart; Screening for diabetes mellitus (DM); Screening for lipid disorders; Screening mammogram, encounter for; Former smoker; Dermatitis; Freitas angioma; Chronic fatigue; Arthralgia, unspecified joint; Thyroid nodule (CMS/HCC)Start: 17-37-4083Gpjram Braydon Phelan MD Work Phone: [facility] S FMStart: 59-39-9378Hoqjap Braydon Phelan MD Work Phone: [facility] S FMStart: 88-66-5724Hkxlv abstractingEedilia Phelan MD Work Phone: [facility] FMStart: 06-29-2022 End: 47-76-9322nuducdwjjsAJ EDWARD HEMEYERFacility:G2Vwxda: 06-01-2022 End: 27-72-8565vgxtiapykcYH SALLY HERNANDEZFacility:N8Bvwtx: 06-01-2022 End: 88-03-2352dqzxovhtlrXT JASON PHELANFacility:H1 Procedures DateProcedureProcedure DetailPerforming ClinicianStart: 47-13-4754KCXRJ IRON AND TIBDelvis Phelan MD Work Phone: Start: 07-85-8359MDS THYROXINE (T4) FREEJason Phelan MD Work Phone: Start: 56-74-2001Jd soft tissue head & neck real time imge docKingsley Phelan MD Work Phone: Start: 82-13-2723PJF FOLLICLE STIMULATING HORMONE Jason Phelan MD Work Phone: Start: 59-54-8843CPPD CORTISOLEdmojgan Phelan MD Work Phone: Start: 95-06-0029EOH LIPID PROFILE (FASTING)Jason Phelan MD Work Phone: Start: 95-37-2512YVM CMP (CMP) (FOR [facility]OTE [facility] USE) Jason Phelan MD Work Phone: Start: 56-53-8093CX TOMOSYNTHESIS SCREENING BIJason Phelan MD Work Phone: Start: 70-66-2988DQV CBC WITH AUTO DIFFEdmojgan Phelan MD Work Phone: Start: 48-42-9768QOG MISCELLANEOUS TESTEdmojgan Phelan MD Work Phone: Start: 17-53-8152JTL T3 REVERSEEdmojgan Phelan MD Work Phone: Start: 88-64-4403YUIY T3 TOTALEdmojgan Phelan MD Work Phone: Start: 75-44-5981UOT THYROID ANTIBODIESJason Phelan MD Work Phone: Start: 11-71-5445ObzrothburqPdyyvl Hemeyer MD Work Phone: Start: 01-66-6491AjqhvpkuackPqcgos Hemeyer MD Work Phone: Start: 95-92-9092YnwadxogdkiCbdryb Hemeyer MD Work Phone: Plan of Treatment DateCare ActivityDetailAuthorStart: 70-92-2890Zsptqdcbt for malignant neoplasm of colonNOMS HealthcareStart: 07-02-2026 End: 37-16-2268Uvrgmfqym (T4) free [Mass/volume] in Serum or PlasmaT4, free Lab Routine Central hypothyroidism Chronic fatigue Expected: 07/02/2026 (Approximate), Expires: 09/30/2026[facility] Work Phone: Comment on above:Expected: 07/02/2026 (Approximate), Expires: 09/30/2026Start: 07-02-2026 End: 91-21-6239Ceuhlsb encounter czuufsunv12/10/2026 10:30 AM EST Office Visit [facility] [address] [place] [address] Jason Phelan MD [address] [place] [phone] (Work) (Fax)[facility] [place] [facility] Family MedicineStart: 09-11-2025 End: 29-43-9444Shdfmsd encounter procedureNOMS CI FM 100Start: 07-02-2025 End: 20-11-4662Mgizyac encounter procedureNOMS CI FM 100Comment on above:Central hypothyroidism; Chronic fatigue; Former smokerStart: 06-28-2025 End: 17-86-2448Tiiqram encounter uutvvpmef79/06/2025 11:00 AM EST Office Visit [facility] [address] [place] [address] Jason Phelan MD [address] [place] [address] (Fax)[facility] CI FM 100Start: 06-26-2025 End: 71-59-6747Fpzscje encounter procedureNOMS [address] Family MedicineComment on above:Encounter for wellness examination in adult; Advance directive in chart; Screening mammogram, encounter for; Screening for osteoporosis; MenopauseStart: 06-19-2025 End: 23-44-1336Loubmvt encounter lohsoskit77/28/2025 2:00 PM EDT Office Visit [facility] [address] [place] [address] Jason Phelan MD [address] [place] [address] [facility] MedicineStart: 57-58-7162Vtmcumemt for malignant neoplasm of breastMammogramNOGA Healthcare Start: 25-49-8179Ishvitkzw for malignant neoplasm of cervixCervical Cancer ScreeningNOGA HealthcareComment on above:Postponed from 1993 (Other Medical Reasons)Start: 06-04-2025 End: 28-96-5309Ypapffoenhmpp metabolic 2000 panel - Serum or PlasmaComprehensive metabolic panel Lab Routine Central hypothyroidism (CMS/HCC) Chronic fatigue Insulin resistance Heterozygous thalassemia Expected: 06/04/2025, Expires: 01/02/2026[facility] Work Phone: Comment on above:Expected: 06/04/2025, Expires: 01/02/2026Start: 06-04-2025 End: 76-79-4837Ivlae 1996 panel - Serum or PlasmaLipid panel Lab Routine Central hypothyroidism (CMS/HCC) Insulin resistance Expected: 06/04/2025, Expires: 01/02/2026[facility] HealthcareComment on above:Expected: 06/04/2025, Expires: 01/02/2026Start: 06-04-2025 End: 87-96-7441Pktrldkjw (T4) free [Mass/volume] in Serum or PlasmaT4, free Lab Routine Central hypothyroidism (CMS/HCC) Chronic fatigue Expected: 06/04/2025, Expires: 01/02/2026[facility] HealthcareComment on above:Expected: 06/04/2025, Expires: 01/02/2026Start: 77-19-3480Gmnwwytbc vaccinationInfluenza Vaccine (#1) [facility] HealthcareStart: 03-13-2025 End: 46-22-3556Mgcvqva encounter procedureNOMS BNS FMComment on above: Generalized anxiety disorder ; Former smokerStart: 03-13-2025 End: 33-74-4616EIDX-sulfateDHEA-sulfate Lab Routine Hot flashes due to menopause Hormone replacement therapy Chronic fatigue Expected: 03/13/2025 (Approximate), Expires: 03/13/2026[facility] Work Phone: Comment on above:Expected: 03/13/2025 (Approximate), Expires: 03/13/2026Start: 03-13-2025 End: 17-85-0394LjtrrcsolSaoydvsof Lab Routine Hot flashes due to menopause Hormone replacement therapy Chronic fatigue Expected: 03/13/2025 (Approximate), Expires: 03/13/2026[facility] HealthcareComment on above:Expected: 03/13/2025 (Approximate), Expires: 03/13/2026Start: 03-13-2025 End: 35-86-4663KSDAFRS, SERUMESTRIOL, SERUM Lab Routine Hot flashes due to menopause Hormone replacement therapy Chronic fatigueExpected: 03/13/2025 (Approximate), Expires: 03/13/2026[facility] HealthcareComment on above:Expected: 03/13/2025 (Approximate), Expires: 03/13/2026Start: 03-13-2025 End: 19-13-6370XjuwufjdfjpuLzkmcohmelyx Lab Routine Hot flashes due to menopause Hormone replacement therapy Chronic fatigue Expected: 03/13/2025 (Approximate), Expires: 03/13/2026[facility] HealthcareComment on above:Expected: 03/13/2025 (Approximate), Expires: 03/13/2026Start: 03-13-2025 End: 43-95-0024Vpaoekkjsbrn, total, msTestosterone, total, ms Lab Routine Hot flashes due to menopause Hormone replacement therapy Chronic fatigue Expected: 03/13/2025 (Approximate), Expires: 03/13/2026[facility] HealthcareComment on above: Expected: 03/13/2025 (Approximate), Expires: 03/13/2026Start: 01-01-2025 End: 89-08-0426Czspjfp encounter procedureNOMS CI FM 100Comment on above:Central hypothyroidism (CMS/HCC); Iron deficiency; Chronic fatigue; Former smokerStart: 12-15-2024 End: 00-47-8302Gfur and Iron binding capacity panel - Serum or PlasmaIron and TIBC Lab Routine Chronic fatigue Iron deficiency Expected: 12/15/2024 (Approximate), Expires: 07/17/2025[facility] HealthcareComment on above:Expected: 12/15/2024 (Approximate), Expires: 07/17/2025Start: 12-15-2024 End: 81-22-2604Fmacdsuvf (T4) free [Mass/volume] in Serum or PlasmaT4, free Lab Routine Central hypothyroidism (CMS/HCC) Chronic fatigue Expected: 12/15/2024, Expires: 07/17/2025[facility] Work Phone: Comment on above:Expected: 12/15/2024, Expires: 07/17/2025Start: 09-19-2024 End: 95-22-5306Pmkmnsw encounter procedureNOMS CI FM 100Comment on above: Generalized anxiety disorder (CMS/HCC); Former smokerStart: 07-17-2024 End: 11-79-7969PK Brain WO contrastMR brain wo contrast Imaging Routine Central hypothyroidism (CMS/HCC) Chronic fatigue Expected: 07/17/2024, Expires: 07/17/2025[facility] HealthcareComment on above:Expected: 07/17/2024, Expires: 07/17/2025Start: 07-17-2024 End: 67-25-0597Liurddd encounter procedureNOMS CI FM 100Comment on above:Central hypothyroidism (CMS/HCC); Chronic fatigue; Former smokerStart: 07-06-2024 End: 20-69-3588Woszizb encounter tixdwhwgi78/14/2024 3:30 PM EST Office Visit [facility] [address] [facility] [address] [place] [address] Jason Phelan MD [address] [address] (Fax)[facility] CI FM 100Start: 06-22-2024 End: 22-58-0943Gybzwzo encounter procedureNOMS CI FM 100Comment on above:Central hypothyroidism (CMS/HCC); Chronic fatigue; Former smokerStart: 06-22-2024 End: 31-83-5461KTJSKRZR Lab Routine Central hypothyroidism (CMS/HCC) Chronic fatigue Expected: 06/22/2024 (Approximate), Expires: 06/22/2025[facility] Comment on above:Expected: 06/22/2024 (Approximate), Expires: 06/22/2025Start: 06-22-2024 End: 85-05-1922KgaldzxiYrlkodrg Lab Routine Central hypothyroidism (CMS/HCC) Chronic fatigue Expected: 06/22/2024 (Approximate), Expires: 06/22/2025 HealthcareComment on above:Expected: 06/22/2024 (Approximate), Expires: 06/22/2025Start: 06-22-2024 End: 67-65-7317BYBQGB Lab Routine Chronic fatigue Amenorrhea Expected: 06/22/2024 (Approximate), Expires: 06/22/2025 HealthcareComment on above: Expected: 06/22/2024 (Approximate), Expires: 06/22/2025Start: 06-22-2024 End: 40-48-1040Fclaqwkbi (T4) free [Mass/volume] in Serum or PlasmaT4, free Lab Routine Central hypothyroidism (CMS/HCC) Chronic fatigue Expected: 06/22/2024 (Approximate), Expires: 06/22/20[facility] Work Phone: Comment on above:Expected: 06/22/2024 (Approximate), Expires: 06/22/2025Start: 06-19-2024 End: 39-93-6747Zjidihg encounter procedureNOMS CI FM 100Comment on above:Hormone replacement therapy; Former smokerStart: 06-12-2024 End: 510898-ivmyhtoabemljf D3 [Mass/volume] in Serum or PlasmaVitamin D 25 hydroxy Lab Routine Chronic fatigue Arthralgia, unspecified joint Expected: 06/12/2024(Approximate), Expires: 06/12/2025[facility] HealthcareComment on above: Expected: 06/12/2024 (Approximate), Expires: 06/12/2025Start: 06-12-2024 End: 77-19-8115FJA MULTIPLEX W/REFLEX 11 AB CASCADEANA MULTIPLEX W/REFLEX 11 AB CASCADE Lab Routine Arthralgia, unspecified joint Expected: 06/12/2024 (Approximate), Expires: 06/12/2025[facility] Work Phone: Comment on above:Expected: 06/12/2024 (Approximate), Expires: 06/12/2025Start: 06-12-2024 End: 74-05-2200JOT W Auto Differential panel - BloodCBC and differential Lab Routine Chronic fatigue Expected: 06/12/2024 (Approximate), Expires: 06/12/2025 [facility] HealthcareComment on above:Expected: 06/12/2024 (Approximate), Expires: 06/12/2025Start: 06-12-2024 End: 88-09-3536Twqbamwxkwmor metabolic 2000 panel - Serum or PlasmaComprehensive metabolic panel Lab Routine Screening for diabetes mellitus (DM) Expected: 06/12/2024(Approximate), Expires: 06/12/2025[facility] HealthcareComment on above: Expected: 06/12/2024 (Approximate), Expires: 06/12/2025Start: 06-12-2024 End: 06-19-8200Hfbfvvrdyox sedimentation rateSedimentation rate, automated Lab Routine Arthralgia, unspecified joint Expected: 06/12/2024 (Approximate), Expires: 06/12/2025[facility] HealthcareComment on above:Expected: 06/12/2024 (Approximate), Expires: 06/12/2025Start: 06-12-2024 End: 40-11-5098Hslhj 1996 panel - Serum or PlasmaLipid panel Lab Routine Screening for lipid disorders Expected: 06/12/2024 (Approximate), Expires: 1 [facility] HealthcareComment on above:Expected: 06/12/2024 (Approximate), Expires: 06/12/2025Start: 06-12-2024 End: 66-07-1359O0, reverseT3, reverse Lab Routine Chronic fatigue Thyroid nodule (CMS/HCC) Expected: 06/12/2024 (Approximate), Expires: 06/12/2025[facility] HealthcareComment on above:Expected: 06/12/2024 (Approximate), Expires: 06/12/2025Start: 06-12-2024 End: 44-42-3686Mtdshadxdzdxv AntibodyThyroglobulin Antibody Lab Routine Chronic fatigue Expected: 06/12/2024 (Approximate), Expires: 06/12/2025[facility] Comment on above:Expected: 06/12/2024 (Approximate), Expires: 06/12/2025Start: 06-12-2024 End: 76-88-7337Okpkxbt peroxidase antibodyThyroid peroxidase antibody Lab Routine Chronic fatigue Expected: 06/12/2024 (Approximate), Expires: 06/12/2025 [facility] HealthcareComment on above:Expected: 06/12/2024 (Approximate), Expires: 06/12/2025Start: 06-12-2024 End: 03-05-8628Wtzzdgwuwqv [Units/volume] in Serum or PlasmaTSH Lab Routine Chronic fatigue Thyroid nodule (CMS/HCC) Expected: 06/12/2024 (Approximate), Expires: 06/12/2025[facility] HealthcareComment on above:Expected: 06/12/2024 (Approximate), Expires: 06/12/2025Start: 06-12-2024 End: 61-81-9491Djluizpuw (T4) free [Mass/volume] in Serum or PlasmaT4, free Lab Routine Chronic fatigue Thyroid nodule (CMS/HCC) Expected: 06/12/2024 (Approximate), Expires: 06/12/2025[facility] HealthcareComment on above:Expected: 06/12/2024 (Approximate), Expires: 06/12/2025Start: 06-12-2024 End: 85-85-8663Atdndehqupjcltev (T3) [Mass/volume] in Serum or PlasmaT3 Lab Routine Chronic fatigue Thyroid nodule (CMS/HCC) Expected: 06/12/2024 (Approximate), Expires: 06/12/2025[facility] HealthcareComment on above:Expected: 06/12/2024 (Approximate), Expires: 06/12/2025Start: 06-12-2024 End: 21-65-3851Gdwreznoyoletajy (T3) Free [Mass/volume] in Serum or PlasmaT3, free Lab Routine Chronic fatigue Thyroid nodule (CMS/HCC) Expected: 06/12/2024 (Approximate), Expires: 06/12/2025[facility] HealthcareComment on above:Expected: 06/12/2024 (Approximate), Expires: 06/12/2025Start: 06-12-2024 End: 98-18-4333AV Thyroid glandUS thyroid Imaging Routine Chronic fatigue Thyroid nodule (CMS/HCC) Expected: 06/12/2024, Expires: 06/12/2025[facility]:Expected: 06/12/2024, Expires: 06/12/2025Start: 06-12-2024 End: 50-31-6245Honelzc encounter qfnpqrefm31/21/2024 9:30 AM EDT Office Visit [facility] [address] [id number] Jason Phelan MD [address] [place] [address] Encounter for wellness examination in adult; Advance directive in chart; Screening for diabetes mellitus (DM); Screening for lipid disorders; Screening mammogram, encounter for; Former smokerNOMS CI FM 100 Comment on above:Encounter for wellness examination in adult; Advance directive in chart; Screening for diabetes mellitus (DM); Screening for lipid disorders; Screening mammogram, encounter for; Former smokerStart: 92-82-2330Hxqaklmrq for malignant neoplasm of breast MammogramNOGA HealthcareStart: 28-24-1294Nknwyonuf vaccinationInfluenza Vaccine (#1)[facility] HealthcareStart: 10-07-2023 End: 72-94-8333Ttrnbca encounter procedureNOMS S FMComment on above: Generalized anxiety disorder (CMS/HCC); Former smoker; BMI 25.0-25.9,adultStart: 52-26-5361Phcjkzmnj for malignant neoplasm of cervix [facility] HealthcareStart: 62-43-3723Xplxchzvi for malignant neoplasm of cervixPap SmearNOGA HealthcareStart: 52-81-5719Guixixpte for malignant neoplasm of colon [facility] Immunizations Immunization DateImmunizationNotesCare RwflsacsZlaphtqv87-40-6112vpoqtniui, seasonal, injectable, preservative Sailaja Phelan MD Work Phone: [facility] Nhjzfasymy09-59-9565kybvthcpx, seasonal, injectable, preservative freeJason Phelan MD Work Phone: [phone] [place], [place] [address]Dacvzlobnv34-87-4486qclepsxen virus vaccine, unspecified formulationJason Phelan MD Work Phone: [phone] [place], [place] [address]Gazknezequ92-72-4382Gflwqzpff, injectable, Madin [place] Canine Kidney, preservative free, quadrivalentJason Phelan MD Work Phone: [phone] [place], [place] [address]Jrmpiwbctm46-00-4983hzdthcrzo virus vaccine, unspecified formulationJason Phelan MD Work Phone: [phone] [place], [place] [address]Xpjexznmoi55-32-2045eelmnlyic, injectable, quadrivalent, preservative freeJason Phelan MD Work Phone: [phone] [place], [place] [address]Zobjcvucbh03-77-6416xbqqbv vaccine recombinant Jason Phelan MD Work Phone: [phone] [place], [place] [address]Apccipolnp47-63-5913qiwyqd vaccine recombinant Jason Phelan MD Work Phone: [phone] [place], [place] [address]Ureeubfpxq57-33-1500cfukshlpq, seasonal, injectableJason Phelan MD Work Phone: [phone] [place], [place] [address]Tqltkvuqgw36-93-8845llprbxpwp, injectable, quadrivalent, preservative freeJason Phelan MD Work Phone: [phone] [place], [place] [address]Wmdeuxbqtd19-15-5804wjhxlcsxw, injectable, quadrivalent, preservative freeJason Phelan MD Work Phone: [phone] [place], [place] [address]Jlosqaphjp00-53-6560vnfltgkea, injectable, quadrivalent, preservative freeJason Phelan MD Work Phone: [phone] [place], [place] [address]Uegemczyts46-96-6506aofmcpqws, high dose seasonal, preservative-freeJason Phelan MD Work Phone: [phone] [place], [place] [address]Pkdcgfgdon85-99-0893ccplrpfey, injectable, quadrivalent, preservative freeJason Phelan MD Work Phone: [phone] [place], [place] [address]Cjlftxrqvi89-93-7190eiuerphiq, injectable, quadrivalent, preservative freeJason Phelan MD Work Phone: [facility] HospitalOuqxilchyi60-38-5834kqhqw nqexwlqvx-N1S9-68, preservative-free, Ruperto Phelan MD Work Phone: [facility] Payers DatePayer CategoryPayerPolicy [id number] [employer] [id number] 2023-Present [address] [address] [place] [id number] Health [id number] [id number] 2.0.1.283183.3.579.2.00183-79-2489Slildij [id number] 2.0.1.029192.3.57[id number] 2.0.1.249765.3.57[id number] 2.840.1.035337.3.57[id number] 2.0.1.011650.3.57[id number] 2.16840.1.092368.3.57[id number] 2.16840.1.191035.3.57[id number] 2.16840.1.149887.3.57[id number] 2.16840.1.736066.3.57[id number] 2.16.840.1.587063.3.57[id number] Social History DateTypeDetailFacilityStart: 06-06-2023 End: 94-81-7178Vscmnpx smoking status NHISEx-smokerNOMS HealthcareStart: 08-23-1979 End: 78-64-2890Uvfvzqy of tobacco useCurrent smokerNOMS HealthcareStart: 08-23-1979 End: 61-46-1499Dhvwcxb of tobacco useCigarette SmokerNOMS HealthcareStart: 06-06-2023 End: 10-61-6603Afstgfd use and exposureSmokeless tobacco non-userNOMS Healthcare Start: 06-14-2023 End: 21-66-5889Kohsdqs intakeCurrent drinker of alcohol (finding)[facility] Start: 09-30-2023 End: 96-36-6097Qlhcseq of Social functionNOMS HealthcareStart: 09-30-2023 End: 50-62-3457Nsoxuvvauop, Afraid, Rape, and Kick questionnaire [HARK][facility] HealthcareWithin the last year, have you been afraid of your partner or ex-partner?NoNOMS HealthcareStart: 06-42-1478Ncx often do you attend meetings of the clubs or organizations you belong to?Patient refusedNOMS HealthcareAre you now , , , , never or living with a partner?DivorcedNOMS HealthcareHow often to you have a drink containing alcohol? 4 or more times a weekNOMS HealthcareHow many standard drinks containing alcohol do you have on a typical day?1 or 2N[facility]S HealthcareHow often do you have 6 or more drinks on 1 occasion?Less than monthlyNOMS HealthcareDo you feel stress - tense, restless, nervous, or anxious, or unable to sleep at night because your mind is troubled all the time - these days [OSQ]Not at allNOMS Healthcare(I/We) worried whether (my/our) food would run out before (I/we) got money to buy more. Never trueNOMS HealthcareStart: 62-12-9381Xgkpasttn82UKOB HealthcareStart: 39-83-3406Bhppihq CommentCaffeine intake : 3 cups per day of coffeeENCOMPASS HEALTH HealthcareStart: 71-73-0576Tsw Assigned At BirthFemalMacon General HospitalStart: 33-36-7427Ningjw identityIdentifies as female gender (finding)NOM HealthcareHow often do you need to have someone help you when you read instructions, pamphlets, or other written material from your doctor or pharmacy [SILS]Never [facility] HealthcareDo you belong to any clubs or organizations such as scientology groups, unions, fraternal or athletic groups, or school groups?YesNOMS HealthcareAre you now , , , , never or living with a partner?Living with partnerNOGA HealthcareDo you feel stress - tense, restless, nervous, or anxious, or unable to sleep at night because your mind is troubled all the time - these days [OSQ]Only a littleNOGA Healthcare NEGATED: Highlighted rowStart: NINFHistory of tobacco usePassive smokerSt. [facility]ukes [facility] Functional Status JewvCxggmixuzaYjapwxSdtwvbih40-21-8099Iviorak Health Questionnaire 2 item (PHQ- 2) [Reported][facility] HospitalVqpmkosbou82-27-0238Qjbel score [AUDIT-C]4 03/08/2025 3:43 PM EDT Mychart, GenericSt. Lukes Des Peres HospitalRevlzfcfjz31-77-4920Cyr often do you have a drink containing alcohol?4 or more times a week 03/08/2025 3:43 PM EDT Mychart, Generic 4 or more times a weekSt. Lukes Des Peres HospitalTwvqzyluok81-37-3595Kck many standard drinks containing alcohol do you have on a typical day?1 or 2 03/08/2025 3:43 PM EDT Mychart, Generic 1 or 2NOMS Wwpwmqrjhf82-73-1993Mgx often do you have 6 or more drinks on 1 occasion?Never 03/08/2025 3:43 PM EDT Mychart, Generic NeverSt. Lukes Des Peres HospitalUxkwiotmbb37-53-4919Xyljfwr Health Questionnaire 2 item (PHQ-2) [Reported][facility] Clinical Notes 06-12-2024 to 07-02-2025 Note Date & UylsQnolWxrwqjdt24-82-9989 History of Present illness Narrative* Jason Phelan MD - 07/02/2025 11:00 AM EST Images from the original note were not included. Patient ID: Fiorella Aguillon is a 59 y.o. female who presents for: Thyroid: Pt here today to review his/hers thyroid labs and any medication changes needed. Fatigue: Absent Weight Gain: Absent Inability to lose weight: Present, Unchanged Hair Changes: Present Review of Systems Constitutional: Negative for appetite change and fatigue. HENT: Negative for trouble swallowing and voice change. Cardiovascular: Negative for palpitations. Musculoskeletal: Negative for arthralgias and myalgias. Psychiatric/Behavioral: Negative for sleep disturbance. The patient is not nervous/anxious. Endocrine: Positive for cold intolerance. Negative for heat intolerance. Objective The patient is pleasant and in no acute distress The patient has good eye contact and clear speech Visit Vitals Ht 5' 4 Wt 141 lb BMI 24.20 kg/m OB Status Postmenopausal Smoking Status Former BSA 1.7 m Allergies[1] Medications Ordered Prior to Encounter[2] 1. Central hypothyroidism Chronic problem this stable. Patient is feeling good and her free T4 level is proximally in the middle of the therapeutic window. Renew prescription. - levothyroxine (Synthroid) 100 MCG tablet; Take 1 tablet (100 mcg) by mouth in the morning. Take before meals. Dispense: 90 tablet; Refill: 3 - T4, free; Future - T4, free 2. Chronic fatigue Chronic problem that has virtually resolved at this point. - T4, free; Future - T4, free no-charge office visit. Please Note: Portions of this chart may have been created using voice recognition software. Occasionally a wrong-word or sound-like substitutions may have occurred due to inherent limitations of the voice recognition software. Please read the chart carefully and recognize, using context, where the substitutions may have occurred. [1] Allergies Allergen Reactions Sulfamethoxazole Other Reaction(s): swelling vaginal Trimethoprim Other Reaction(s): vaginal swelling [2] Current Outpatient Medications on File Prior to [...] mg by mouth every 8 (eight) hours. [DISCONTINUED] levothyroxine (Synthroid) 100 MCG tablet Take 1 tablet (100 mcg) by mouth in the morning. Take before meals. 90 tablet 1 No current facility-administered medications on file prior to visit. documented in this encounterSt. Lukes Des Peres HospitalQuexeftknb88-79-1754 History of Present illness Narrative* Jason Phelan MD - 03/13/2025 3:30 PM EDT Images from the original note were not included. Patient ID: Fiorella Aguillon is a 59 y.o. female who presents for: Anxiety Patient is here for evaluation of anxiety. He/She has the following anxiety symptoms: none. Onset of symptoms was approximately several years ago. Symptoms have been unchanged since that time. He/Shedenies current suicidal and homicidal ideation. Family history significant for no psychiatric illness.Possible organic causes contributing are: none. Previous treatment includes medication Celexa andXanax. He/She complains of the following medication side effects: none. She is happy and enjoying life. She is sleeping well. She only has 2 Xanax left. Review of Systems Constitutional: Negative for appetite change and fatigue. Psychiatric/Behavioral: Positive for sleep disturbance. Negative for agitation, behavioral problemsand suicidal ideas. The patient is nervous/anxious. Objective Appearance: Well-groomed, in no acute distress Abnormal body movements: None Affect: Appropriate and appears to be full range Attention: Good Attitude: Cooperative Degree of awareness of surroundings: Grossly within normal limits Impulse control: Appears to be good Insight: Appears to be good Fund of knowledge; adequate Judgment: Appears to be adequate Perceptual disorders: No perceptual disorders noted Psychomotor activity: Within normal range Speech: Clear, normal variability and rate Thought content: Unremarkable 06/07/2023 8:56 AM 06/14/2023 3:54 PM 10/07/2023 4:06 PM 06/12/2024 9:26 AM 06/19/2024 3:24 PM 09/19/2024 3:26 PM 01/01/2025 3:54 PM Vitals BMI 25.58 kg/m2 25.58 kg/m2 25.58 kg/m2 25.15 kg/m2 25.15 kg/m2 25.06 kg/m2 25.06 kg/m2 BSA (m2) 1.75 m2 1.75 m2 1.75 m2 1.73 m2 1.73 m2 1.73 m2 1.73 m2 Systolic 122 120 Diastolic 70 70 Heart Rate 72 68 SpO2 98 % 98 % Height (in) 5' 4 5' 4 5' 4 5' 4 5' 4 5' 4 5' 4 Weight (lb) 149 149 149 146.5 146.5 146 146 Visit Report Report Report Report Report Report Report Report Allergies Allergen Reactions Sulfamethoxazole Other Reaction(s): swelling [...] 1 through 25 of the month 0 levothyroxine (Synthroid) 100 MCG tablet Take 1 tablet (100 mcg) by mouth in the morning. Take before meals. 90 tablet 1 meclizine (Antivert) 25 MG tablet Take 25 mg by mouth every 8 (eight) hours. No current facility-administered medications on file prior to visit. 1. Generalized anxiety disorder (Primary) Chronic problem, stable, doing well. We did discuss the possibility of attempting to wean her citalopram down in it this point in time she prefers to remain on the same dose and consider this next summer. She is adjusting to her detention. PDMP reviewed, Jason Phelan MD on 03/13/2025 3:30 PM Appears as expected. I specifically note the patient has one or more high risk medications that is a chronic problem that specifically increases complexity of decision making and complicates all prescribing including prescription renewal consistent with a moderate or complex degree of decision making. A high-risk medicine is one that may cause serious health problems if not taken the correct way, ortaken with another drug or food item that it may interact with. If the high-risk medication includes a controlled or reportable substance, The OARRS and NARX scores were reviewed and seem to be consistent with their prescribing pattern. The Current Opioid Misuse Measure (COMM) is reviewed and there is no evidence of aberrant behavior or abuse. Treatment regimens are increasingly complex and potentially harmful, and people with high risk medications need regular review and prescribing optimization. - ALPRAZolam (Xanax) 0.25 MG tablet; Take 1 tablet (0.25 mg) by mouth 3 (three) times a day as needed for anxiety for up to 10 days Dispense: 15 tablet; Refill: 0 - citalopram (CeleXA) 40 MG tablet; Take 1 tablet (40 mg) by mouth Daily Dispense: 90 tablet; Refill: 1 2. Former smoker Continue nonsmoking status 3. Hot flashes due to menopause She is coming due in into her last prescription of her hormone replacement therapy. We did discuss how I am changing the way I am doing this a little bit and she is good with this idea. - DHEA-sulfate; Future - Estradiol; Future - ESTRIOL, SERUM; Future - Testosterone, total, ms; Future - Progesterone; Future - DHEA-sulfate - Estradiol - ESTRIOL, SERUM - Testosterone, total, ms - Progesterone 4. Hormone replacement therapy As above - DHEA-sulfate; Future - Estradiol; Future - ESTRIOL, SERUM; Future - Testosterone, total, ms; Future - Progesterone; Future - DHEA-sulfate - Estradiol - ESTRIOL, SERUM - Testosterone, total, ms - Progesterone 5. Chronic fatigue Chronic problem, stable, complex in nature with moderate decision making. I discussed with the patient or their labor representative, their fatigue issues. We discussed how this is improved significantly. We discussed how this is almost always a multifactorial problem. We discussed how we will continue to search for refinements in their current treatments or evaluation for further disease processes and then support or treat them as appropriate. We discussed how we can frequently manage the symptoms, but may not be able to completely cure or resolve the issue. The patient will almost certainly need to continue to make lifestyle changes including diet, sleep, exercise, and stress management as appropriate. The patient was given a chance to ask questions and all questions were answered. - DHEA-sulfate; Future - Estradiol; Future - ESTRIOL, SERUM; Future - Testosterone, total, ms; Future - Progesterone; Future - DHEA-sulfate - Estradiol - ESTRIOL, SERUM - Testosterone, total, ms - Progesterone documented in this encounterSt. [facility] [id number] History of Present illness Narrative* Jason Phelan MD - 01/01/2025 4:00 PM EDT Images from the original note were not included. Patient ID: Fiorella Aguillon is a 59 y.o. female who presents for: Thyroid: Pt here today to review his/hers thyroid labs and any medication changes needed. Fatigue: Present, worsened since she went down to one iron pill Weight Gain: Absent Inability to lose weight: Present, Unchanged Hair Changes: Present Review Results: Patient is here in the office today to review recent labs or diagnostic imaging with Dr Homero Phelan per his request. Based on the results they will also review treatment options. Please see labs scanned. Review of Systems Constitutional: Positive for fatigue. Negative for appetite change. HENT: Negative for trouble swallowing and voice change. Cardiovascular: Negative for palpitations. Musculoskeletal: Negative for arthralgias and myalgias. Psychiatric/Behavioral: Negative for sleep disturbance. The patient is not nervous/anxious. Endocrine: Negative for cold intolerance and heat intolerance. Clinisync Result Encounter on 12/16/2024 Component Date Value Ref Range Status TBH IRON 12/16/2024 113.0 50.0 - 170.0 ug/dL Final TBH TOTAL IRON BINDING CAPACITY 12/16/2024 231.0 (L) 250.0 - 450.0 ug/dL Final TBH PERCENT IRON SATURATION 12/16/2024 48.9 % Final FREE T4 12/16/2024 0.96 0.76 - 1.46 ng/dL Final Objective The patient is pleasant and in no acute distress The patient has good eye contact and clear speech Visit Vitals Ht 5' 4 Wt 146 lb BMI 25.06 kg/m OB Status Postmenopausal Smoking Status Former [...] 1 through 25 of the month 0 levothyroxine (Synthroid) 88 MCG tablet Take 1 tablet (88 mcg) by mouth in the morning. Take beforemeals. 90 tablet 1 meclizine (Antivert) 25 MG tablet Take 25 mg by mouth every 8 (eight) hours. No current facility-administered medications on file prior to visit. 1. Central hypothyroidism (CMS/HCC) (Primary) Chronic problem that is stable but a little bit outside of optimal parameters. After discussion we have mutually agreed on a dosage adjustment upward. - levothyroxine (Synthroid) 100 MCG tablet; Take 1 tablet (100 mcg) by mouth in the morning. Take before meals. Dispense: 90 tablet; Refill: 1 - Comprehensive metabolic panel; Future - Lipid panel; Future - T4, free; Future - Comprehensive metabolic panel - Lipid panel - T4, free 2. Chronic fatigue Chronic problem, stable, complex in nature with moderate decision making. I discussed with the patient and/or their labor representative, their fatigue issues. We discussed how this is improved significantly. We discussed that the patient will almost certainly need to continue to make lifestyle changes including diet, sleep, exercise, and stress management as appropriate. We discussed how this is almost always a multifactorial problem. We further discussed how we will continue to search for refinements in their current treatments or evaluation for further disease processes and then support or treat them as appropriate. We discussed how we can frequently improve the symptoms, but may not be able to completely cure or resolve the issue. The patient was given a chance to ask questions and all questions were answered. - Comprehensive metabolic panel; Future - T4, free; Future - Comprehensive metabolic panel - T4, free 3. Former smoker Continue not smoking 4. Insulin resistance Reinforced dietary and lifestyle changes - Comprehensive metabolic panel; Future - Lipid panel; Future - Comprehensive metabolic panel - Lipid panel 5. Heterozygous thalassemia Comorbid condition. - Comprehensive metabolic panel; Future - Comprehensive metabolic panel documented in [place] encounterGreg [place] [id number] History of Present illness Narrative* Jason Phelan MD - 10/19/2024 8:34 AM EST Hormone tests reviewed. PDMP reviewed New prescription generated. Notify the patient that the actual amount that she applies we will need to increase from 0.5 mL to 1 mL documented in this [facility]02-24-2025 Telephone encounter Note* Telephone Encounter - Consuelo Aggarwal - 10/16/2024 3:47 PM EST I spoke to Fiorella concerning her HRT refill. She states that the dates we had are correct and that when she was in, in Apr, she still had refills and she is just now out of refills. If an adjustment needed to be made in April, that was not done. She was still refilling off her January prescription. [facility] [id number] Miscellaneous Notes* Telephone Encounter - Consuelo Aggarwal - 10/16/2024 3:47 PM EST I spoke to Fiorella concerning her HRT refill. She states that the dates we had are correct and that when she was in, in Apr, she still had refills and she is just now out of refills. If an adjustment needed to be made in April, that was not done. She was still refilling off her January prescription. * Telephone Encounter - Consuelo Aggarwal - 10/16/2024 7:36 AM EST Fiorella left a message requesting a refill on her hormone cream to [facility]. documented in this [facility]02-24-2025 Telephone encounter Note* Telephone Encounter - Consuelo Aggarwal - 10/16/2024 7:36 AM EST Fiorella left a message requesting a refill on her hormone cream to [facility]. [facility] [id number] History of Present illness Narrative* Jason Phelan MD - 09/19/2024 3:30 PM EST Images from the original note were not included. Patient ID: Fiorella Aguillon is a 59 y.o. female who presents for: Anxiety Patient is here for evaluation of anxiety. He/She has the following anxiety symptoms: some anxiety with her mothers help . Onset of symptoms was approximately several years ago. Symptoms have been stable since that time. He/She denies current suicidal and homicidal ideation. Family history significa nt for no psychiatric illness.Possible organic causes contributing are: none. Previous treatment includes medication Xanax. He/She complains of the following medication side effects: none. Review of Systems Constitutional: Negative for appetite change and fatigue. Psychiatric/Behavioral: Negative for agitation, behavioral problems, sleep disturbance and suicidalideas. The patient is nervous/anxious. Objective Appearance: Well-groomed, in no acute distress Abnormal body movements: None Affect: Appropriate and appears to be full range Attention: Good Attitude: Cooperative Degree of awareness of surroundings: Grossly within normal limits Impulse control: Appears to be good Insight: Appears to be good Fund of knowledge; adequate Judgment: Appears to be adequate Perceptual disorders: No perceptual disorders noted Psychomotor activity: Within normal range Speech: Clear, normal variability and rate Thought content: Unremarkable Visit Vitals Ht 5' 4 Wt 146 lb BMI 25.06 kg/m OB Status Postmenopausal Smoking Status Former BSA 1.73 m PDMP reviewed, Jason Phelan MD on 09/19/2024 3:41 PM Appears as expected. Allergies Allergen Reactions Sulfamethoxazole Other Reaction(s): swelling [...] 1 through 25 of the month 0 levothyroxine (Synthroid) 88 MCG tablet Take 1 tablet (88 mcg) by mouth in the morning. Take beforemeals. 90 tablet 1 meclizine (Antivert) 25 MG tablet Take 25 mg by mouth every 8 (eight) hours. No current facility-administered medications on file prior to visit. 1. Generalized anxiety disorder (CMS/HCC) Chronic problem, stable, overall doing well. Sleeping well She does have plenty of the Xanax Zoloft and only uses a small amount on rare occasions. No evidence of abuse or diversion. In prescribing a renewal to their current medication, consideration of the following encompasses moderate decision making; the current prescriptions and supplements, the current allergies and medication intolerances, current medical conditions, and potential drug interactions. Any changes to risks, benefits, and reason for renewing their current medication due to the above were discussed. The patient was given a chance to ask questions today and all questions were answered. The patient is to contact us if any other questions arise or if any problems occur. (Utilizing the original 1994/1996 guidelines or the 2020 office/outpatient code guidelines for selecting the level of E/M service, In both sets of guidelines, prescription drug management appears in the moderate medical decision making (MDM) row. Neither the original guidelines nor the new guidelines state that a new prescription or change is needed in order to credit prescription drug management) - citalopram (CeleXA) 40 MG tablet; Take 1 tablet (40 mg) by mouth Daily Dispense: 90 tablet; Refill: 1 2. Former smoker Continue not smoking. documented in this encounterSt. L[facility] [id number] History of Present illness Narrative* Jason Phelan MD - 07/17/2024 9:00 AM EST Images from the original note were not included. Patient ID: Fiorelal Aguillon is a 58 y.o. female who presents for: Thyroid: Pt here today to review his/hers thyroid labs and any medication changes needed. Fatigue: Present, much improved and she is pleased. She is not struggling through the middle of herafternoon and she has even noted on the drive home and once she gets home she does feel exhausted. Weight Gain: Absent Inability to lose weight: absent Hair Changes: absent He/She is following the thyroid diet: Good He/She are taking medications as directed: Good He/She are exercising at least 3 days out of the week for 30 minutes or more: Good Review of Systems Constitutional: Positive for fatigue. Negative for appetite change. HENT: Negative for trouble swallowing and voice change. Cardiovascular: Negative for palpitations. Musculoskeletal: Positive for arthralgias. Negative for myalgias. Psychiatric/Behavioral: Negative for sleep disturbance. The patient is not nervous/anxious. Endocrine: Negative for cold intolerance and heat intolerance. Clinisync Result Encounter on 07/10/2024 Component Date Value Ref Range Status FREE T4 07/10/2024 0.94 0.76 - 1.46 ng/dL Final Clinisync Result Encounter on 07/01/2024 Component Date Value Ref Range Status TBH CORTISOL 07/01/2024 9.6 6.2 - 19.4 ug/dL Final Comment: Please Note: The reference interval and flagging for this test is for an AM collection. If this is a PM collection please use: Cortisol PM: 2.3-11.9 FSH 07/01/2024 28.3 25.8 - 134.8 mIU/mL Final Comment: Adult Female Range Follicular phase 3.5 - 12.5 Ovulation phase 4.7 - 21.5 Luteal phase 1.7 - 7.7 Postmenopausal 25.8 - 134.8 Performed at: [facility] [id number] Packer: Lalit Burden PhD, Phone: [phone] ACTH, PLASMA 07/01/2024 17.2 7.2 - 63.3 pg/mL Final Comment: ACTH reference interval for samples collected between 7 and 10 AM. Performed at: [facility] [id number] Packer: Lalit Burden PhD, Phone: [phone] Clinisync Result Encounter on 06/30/2024 Component Date Value Ref Range Status SODIUM 06/30/2024 144 136 - 145 mmol/L Final POTASSIUM 06/30/2024 4.4 3.5 - 5.1 mmol/L Final CHLORIDE 06/30/2024 106 98 - 107 mmol/L Final CARBON DIOXIDE 06/30/2024 30.6 21.0 - 32.0 mmol/L Final ANION GAP 06/30/2024 11.8 Final GLUCOSE 06/30/2024 90 74 - 106 mg/dL Final BLOOD UREA NITROGEN 06/30/2024 15.0 7.0 - 18.0 mg/dL Final CREATININE 06/30/2024 0.75 0.55 - 1.02 mg/dL Final TBH EGFR-AF SOMALI 06/30/2024 >60 >=60 mL/min/1.73m 2 Final TBH EGFR-NON AF SOMALI 06/30/2024 >60 >=60 mL/min/1.73m 2 Final BUN CREATININE RATIO 06/30/2024 20.0 Final CALCIUM 06/30/2024 9.0 8.5 - 10.1 mg/dL Final BILIRUBIN TOTAL 06/30/2024 0.7 0.2 - 1.0 mg/dL Final ASPARTATE AMINO TRANSFERASE 06/30/2024 14 (L) 15 - 37 U/L Final ALANINE AMINOTRANSFERASE 06/30/2024 18 14 - 59 U/L Final ALKALINE PHOSPHATASE 06/30/2024 36 (L) 46 - 116 U/L Final TOTAL PROTEIN 06/30/2024 7.4 6.4 - 8.2 g/dL Final ALBUMIN LEVEL 06/30/2024 4.0 3.4 - 5.0 g/dL Final GLOBULIN 06/30/2024 3.4 g/dL Final ALBUMIN GLOBULIN RATIO 06/30/2024 1.2 Final TRIGLYCERIDES 06/30/2024 50 <=150 mg/dL Final CHOLESTEROL 06/30/2024 175 <=200 mg/dL Final HDL CHOLESTEROL 06/30/2024 47 40 - 60 mg/dL Final Comment: > or =60 mg/dl - LOW CARDIOVASCULAR RISK <40 mg/dl - HIGH CARDIOVASCULAR RISK LDL CHOLESTEROL CALCULATED 06/30/2024 118.0 mg/dL Final Comment: <100 mg/dl OPTIMAL 100-129 mg/dl NEAR OR ABOVE OPTIMAL 130-159 mg/dl BORDERLINE HIGH 160-189 mg/dl HIGH >190 mg/dl VERY HIGH VLDL CHOLESTEROL 06/30/2024 10.0 mg/dL Final CHOL HDL RATIO 06/30/2024 3.7 Final Comment: 3.3 - 4.4 LOW RISK 4.4 - 7.1 AVERAGE RISK 7.1 - 11.0 MODERATE RISK >11.0 HIGH RISK Objective The patient is pleasant and in [...] mg by mouth every 8 (eight) hours. [DISCONTINUED] levothyroxine (Synthroid) 75 MCG tablet Take 1 tablet (75 mcg) by mouth in the morning. Take before meals. 30 tablet 0 No current facility-administered medications on file prior to visit. 1. Central hypothyroidism (CMS/HCC) (Primary) Chronic problem that is improved. With review she is in the lower quartile for her T4 level. We talked about a small adjustment upward just to give her a little more breathing room . I think she will feel neutral to slightly better with this adjustment. As well as she is feeling the likelihood of having significant euthyroid sick syndrome is minimal. We were considering testing for this at this visit in I do not believe he needed proceed with that. However we also trusted the adrenals in the FSH to try and get a sense if this was permeating her entire hypothalamic pituitary axis or not. It does not appear so. Since this is a new diagnosis we have not proceeded with the imaging. We will order a brain MRI attention pituitary. - levothyroxine (Synthroid) 88 MCG tablet; Take 1 tablet (88 mcg) by mouth in the morning. Take before meals. Dispense: 90 tablet; Refill: 1 - T4, free; Future - T4, free - MR brain wo contrast; Future - MR brain wo contrast 2. Chronic fatigue Chronic problem, improved continue to follow longitudinally - T4, free; Future - T4, free - Iron and TIBC; Future - Iron and TIBC - MR brain wo contrast; Future - MR brain wo contrast 3. Former smoker Continue stopped smoking 4. Iron deficiency After some discussion we will recheck her iron levels when we recheck her for thyroid. She understands she needs to stop her iron tablet 3 days prior to her laboratory test. She also understands thatshe can not take the iron at the same time as her. - Iron and TIBC; Future - Iron and TIBC documented in this [facility]11-11-2024 Telephone encounter Note* Telephone Encounter - Jason Phelan MD - 07/03/2024 2:00 PM EST Notify her that her thyroid ultrasound is essentially normal just slightly asymmetric. No further evaluation of the gland itself. [facility] [id number] Miscellaneous Notes* Telephone Encounter - Jason Phelan MD - 07/03/2024 2:00 PM EST Notify her that her thyroid ultrasound is essentially normal just slightly asymmetric. No further evaluation of the gland itself. documented in this [facility]10-31-2024 History of Present illness Narrative* Jason Phelan MD - 06/22/2024 3:30 PM EDT Images from the original note were not [...] 06/12/2024 COMMENT . Final Comment: Test Ordered: [id number] SWATHI, IFA Rfx 11 Manuel Multiplex SWATHI by IFA Rfx Titer/Pattern Negative CB Reference Range: . Negative <1:80 Borderline 1:80 Positive >1:80 ICAP nomenclature: AC-0 For more information about Hep-2 cell patterns use ANApatterns.org, the official website for the International Consensus on Antinuclear Antibody (SWATHI) Patterns (ICAP). Performed at: [address] [id number] Packer: Lalit Burden PhD, Phone: [phone] [facility] TRIIODOTHYRONINE (T3) 06/12/2024 61 (A) 71 - 180 ng/dL Final Comment: Performed at: [address] [id number] Packer: Lalit Burden PhD, Phone: [phone] REVERSE T3, SERUM 06/12/2024 12.5 9.2 - 24.1 ng/dL Final Comment: This test was developed and its performance characteristics determined by [employer]. It has not been cleared or approved by the Food and Drug Administration. Performed at: [address] [id number] Packer: Margaret Rene MD, Phone: [phone] THYROID PEROXIDASE (TPO) AB 06/12/2024 10 0 - 34 IU/mL Final THYROGLOBULIN ANTIBODY 06/12/2024 <1.0 0.0 - 0.9 IU/mL Final Comment: Thyroglobulin Antibody measured by [facility] [employer] It should be noted that the presence of thyroglobulin antibodies may not be pathogenic nor diagnostic, especially at very low levels. The assay precision inspector has found that four percent of individuals without evidence of thyroid disease or autoimmunity will have positive TgAb levels up to 4 IU/mL. Performed at: - [facility] [id number] Packer: Lalit Burden PhD, Phone: [phone] Clinisync Result Encounter on 06/12/2024 Component Date [...] face of low T4 and low T3. Thisis a clinical diagnosis. She does not have autoimmune thyroid disease. We can not make the diagnosis of euthyroid sick syndrome until we get her euthyroid. We will start with levothyroxine and then in 3 weeks we will go ahead and just get a free T4 level, once this is in a normal range would do furt her testing. If not normal range we will adjust by phone. Because of this being central we are going to also check cortisol and ACTH. We are going to check an FSH because she is certainly menopausal this point it should be elevated and that can help us withthe diagnosis. We are holding off on brain [...] FSH; Future - FSH documented in this encounterSt. [facility] [id number] History of Present illness Narrative* Jason Phelan MD - 06/19/2024 3:30 PM EDT Images from the original note were not included. Patient ID: Fiorella Aguillon is a 58 y.o. female who presents for: Symptoms include: none, She does note the occasional hot flash but is unsure if this is related. Novaginal complaints. Severity: 0 Feels better since starting HRT treatment: Yes Other Symptoms: none Date of Last Mammogram: 05/2024 Review of Systems Constitutional: Positive for fatigue. Breasts: Negative for breast mass and breast discharge. Genitourinary: Negative for difficulty urinating, frequency, urgency, vaginal discharge and vaginalpain. Skin: Negative for rash. Neurological: Negative for [...] decision making . I have reviewed the [facility] urine hormone profile. I have made notations on the patient's copy to help them remember this complex testing and the complex hormone interactions. I then reviewed this with the patient or their labor representative. I have educated them concerning the [...] not undergone review or approval by the FDAand, therefore, have not been documented to be safe or effective to diagnose, treat, prevent, mitigate, or cure any condition or disease. The patient was given a chance to ask questions today and all questions were answered. The patient is to contact us if any other questions arise or if any problems occur with the adjustment in their medication. documented in this encounterSt. Lukes [facility] [id number] History of Present illness Narrative* Jason Phelan MD - 06/12/2024 9:30 AM EDT Images from the original note were not included. Patient ID: Fiorella Aguillon is a 58 y.o. female who presents for: See Scanned Wellness packet Advance Directive/Living Will: Yes Health Care Power of Craps Manager: Yes Review of Systems Constitutional: Negative for [...] In all of these areas also. No pittingof her nails. No evidence of psoriasis. The [...] I discussed with the patient or their labor representative, their fatigue issues. We discussed how this is almost always chronic and by definition must have been in place for 6 weeks in order to be considered chronic fatigue. We discussed how this is almost always a multifactorial problem. We discussed that the patient willalmost certainly need to make lifestyle changes including [...] benign, with a newly diagnosed clinical mass thatappears to be consistent with a nodule we do need an ultrasound to define anatomy. - T3; Future - T3, free; Future - T3, reverse; Future - T4, free; Future - TSH; Future - T3 - T3, free - T3, reverse - T4, free - TSH - US thyroid; Future documented in this encounterNO[facility] HealthcareEvaluation note* Diagnosis Encounter for wellness examination in adult [...] uninodular goiter documented in this encounter [facility]* Diagnosis Hot flashes due to menopause- Primary Hormone replacement therapy documented in this encounter [facility]* Diagnosis Amenorrhea- Primary Absence of menstruation Central hypothyroidism (CMS/HCC) Unspecified hypothyroidism Chronic fatigue Other malaise and fatigue Iron deficiency anemia secondary to inadequate dietary iron intake documented [facility]* Diagnosis Central hypothyroidism (CMS/HCC)- Primary Unspecified hypothyroidism Chronic fatigue Other malaise and fatigue Former smoker Personal history of tobacco use, presenting hazards to health Iron deficiency Disorders of iron metabolism documented in this [facility]* Diagnosis Generalized anxiety disorder (CMS/HCC) Generalized anxiety disorder Former smoker Personal history of tobacco use, presenting hazards to health documented in this [facility]* Diagnosis Menopausal syndrome Symptomatic menopausal or female climacteric states Hot flashes due to menopause documented in this [facility]* Diagnosis Central hypothyroidism (CMS/HCC)- Primary Unspecified hypothyroidism Chronic fatigue Other malaise and fatigue Former smoker Personal history of tobacco use, presenting hazards to health Insulin resistance Other abnormal glucose Heterozygous thalassemia Other thalassemia documented in this encounter [facility]* Diagnosis Generalized anxiety disorder- Primary Generalized anxiety disorder Former smoker Personal history of tobacco use, presenting hazards to health Hot flashes due to menopause Hormone replacement therapy Chronic fatigue Other malaise and fatigue documented in this [facility]* Diagnosis Central hypothyroidism Unspecified hypothyroidism Chronic fatigue Other malaise and fatigue documented in this encounter [facility] Summary Purpose Family History No Family History Records FoundNo Family History Records FoundNo Family History Records Found Advance Directives TypeDate RecordedPatient RepresentativeExplanationAdvance Directives and Living Will Living WillAdvance Directives and Living Will08/29/2019 2019-08-26 Power Of AttorneyTypeDate RecordedPatient RepresentativeExplanation Advance Directives and Living Will Living WillAdvance Directives and Living Will Power Of Craps Manager Additional Source Comments INFORMATION SOURCE (unrecogn ized section and content) DATE CREATED AUTHOR 07/04/2022 [facility] DATE CREATED AUTHOR AUTHOR'S ORGANIZ ATION 06/21/2025 [facility] DATE CREATED AUTHOR AUTHOR'S ORGANIZ ATION 07/03/2025 [facility] EPIC Care Teams (unrecognized sec tion and content) Team MemberRelationshipSpecialtyStart DateEnd Date Jason Phelan MD [address] [place] [address] (Fax) PCP - GeneralFamily Medicine01/04/23Team MemberRelationshipSpecialtyStart DateEnd Date Jason Phelan MD [address] [place] [address] (Fax) PCP - Generalmi Medicine01/04/23Team MemberRelationshipSpecialtyStart DateEnd Date Jason Phelan MD [address] [place] [address] (Fax) PCP - GeneralFamily Medicine5/15/23Team MemberRelationshipSpecialtyStart DateEnd Date Jason Phelan MD [address] [facility] [place] [address] (Fax) PCP - GeneralFamily Medicine5/15/23Team MemberRelationshipSpecialtyStart DateEnd Date Jason Phelan MD [address] [place] [address] (Fax) PCP - GeneralFamily Medicine5/1523Team MemberRelationshipSpecialtyStart DateEnd Date Jason Phelan MD [address] [place] [address] (Fax) PCP - GeneralFamily Medicine5/15/23Team MemberRelationshipSpecialtyStart DateEnd Date Jason Phelan MD [address] [place] [address] (Fax) PCP - GeneralFamily Medicine5/15/23Team MemberRelationshipSpecialtyStart DateEnd Date Jason Phelan MD [address] [place] [address] (Fax) PCP - GeneralFamily Medicine5/15/23Team MemberRelationshipSpecialtyStart DateEnd Date Jason Phelan MD [address] [place] [address] (Fax) PCP - GeneralFamily Medicine5/15/23Team MemberRelationshipSpecialtyStart DateEnd Date Jason Phelan MD [address] [place] [address] (Fax) PCP - GeneralFamily Medicine5/15/23Team MemberRelationshipSpecialtyStart DateEnd Date Jason Phelan MD [address] [place] [address] (Fax) PCP - GeneralFamily Medicine5/15/23Team MemberRelationshipSpecialtyStart DateEnd Date Jason Phelan MD [address] [place] [address] (Fax) PCP - GeneralFamily Medicine5/15/23Team MemberRelationshipSpecialtyStart DateEnd Date Jason Phelan MD [address] [place] [address] (Fax) PCP - GeneralFamily Medicine5/15/23Team MemberRelationshipSpecialtyStart DateEnd Date Jason Phelan MD [address] [place] [address] (Fax) PCP - GeneralFamily Medicine5/15/23Team MemberRelationshipSpecialtyStart DateEnd Date Jason Phelan MD [address] [place] [address] (Fax) PCP - GeneralFamily Medicine5/15/23Team MemberRelationshipSpecialtyStart DateEnd Date Jason Phelan MD [address] [place] [address] (Fax) PCP - GeneralFamily Medicine5/15/23Team MemberRelationshipSpecialtyStart DateEnd Date Jason Phelan MD [address] [place] [address] (Fax) PCP - GeneralFamily Medicine01/04/23Team MemberRelationshipSpecialtyStart DateEnd Date Jason Phelan MD [address] [place] [address] (Fax) [facility] - [facility]Team MemberRelationshipSpecialtyStart DateEnd Date Jason Phelan MD [address] [place] [address] (Fax) [facility]23Team MemberRelationshipSpecialtyStart DateEnd Date Jason Phelan MD [address] [place] [address] (Fax) [facility]/23Team MemberRelationshipSpecialtyStart DateEnd Date Jason Phelan MD [address] [place] [address] (Fax) [facility]CP [facility]01/04/23Team MemberRelationshipSpecialtyStart DateEnd Date Jason Phelan MD [address] [place] [address] (Fax) [facility] - [facility] Reason for Visit (unrecogniz ed section and content) ReasonCommentsAnnual ExamReasonCommentsHormonesReasonCommentsHypothyroidism ReasonCommentsAnxietyReasonOnset DateCommentsMed [id number]/12/2024ReasonComments Hypothyroidism FOR RECORDS PERTAINING TO PATIENTS WHO ARE [...] BE BASED ON THE PRIMARY CLINICAL RECORDS. [facility]. provides no warranty or guarantee of the accuracy or completeness of information in this document.
--- NOTE | 2025-07-06 13:20 | MM_ITS ---
Patient Name: SONAL AGUILLON MR#: [id number] : 1965 Exam Date: 07/06/2025 Ordering Doctor: DR TOAN PHELAN . RADIOLOGY REPORT PROCEDURE: MM TOMOSYNTHESIS SCREENING BI COMPARISON: MM TOMOSYNTHESIS SCREENING BI, 06/12/2024. MM TOMOSYNTHESIS SCREENING BI, 06/07/2023. MG MAMM SCREEN 3D [place]ON CAD, 06/01/2022. MG MAMM [place]ON SCRN W CAD DIG, 07/11/2013. INDICATIONS: Screening Calculator Name NCI Breast Cancer Risk Assessment Tool 5 Year Breast Cancer Risk 1.60% Lifetime Breast Cancer Risk 7.90% Personal Breast Cancer No Personal Ovarian Cancer No Treatments None Family Cancers Father with prostate cancer at age 55; Father with pancreatic cancer at age 60. LOCATION: [facility] BREAST COMPOSITION: There are scattered areas of fibroglandular density. FINDINGS: RIGHT BREAST: There is a 5 mm focal asymmetry of the medial aspect of the right breast 3 cm from the nipple at approximately the 3 o'clock position. LEFT BREAST: No significant suspicious finding. DIAGNOSTIC CATEGORY 0--INCOMPLETE: NEED ADDITIONAL IMAGING EVALUATION. RECOMMENDATIONS: ADDITIONAL MAMMOGRAPHIC VIEWS REQUIRED: RIGHT BREAST - follow-up with spot compressed views of the right breast and ultrasound if necessary is recommended. Dictated by: Manuel Marie MD on 07/06/2025 at 15:06 Approved by: Manuel Marie MD on 07/06/2025 at 15:09
== END 2025-07-06 12:49 | disposition home or self-care (01) ==
LOC: MAMMO 12:48
PROVIDERS: PCP Family Medicine; Visit Provider Family Medicine
DX: Z12.31 Encounter for screening mammogram for malignant neoplasm of breast (principal); Z80.42 Family history of malignant neoplasm of prostate; Z80.8 Family history of malignant neoplasm of other organs or systems; R92.8 Other abnormal and inconclusive findings on diagnostic imaging of breast
CPT/HCPCS: 77063; 77067

== ENCOUNTER 2025-07-24 12:57 | Outpatient (OUT) | payer OTHER, SELFPAY ==
--- NOTE | 2025-07-24 | US_ITS ---
Patient Name: SONAL AGUILLON MR#: [id number] : 1965 Exam Date: 07/24/2025 Ordering Doctor: DR TOAN PHELAN . This report includes an Addendum and supersedes previous reports for this exam. RADIOLOGY REPORT PROCEDURE: MM TOMOSYNTHESIS DIAGNOSTIC RT, 07/24/2025, 12:55 US BREAST RT LIMITED, 07/24/2025, 13:32 COMPARISON: MM TOMOSYNTHESIS SCREENING BI, 07/06/2025. MM TOMOSYNTHESIS SCREENING BI, 06/12/2024. MM TOMOSYNTHESIS SCREENING BI, 06/07/2023. MG MAMM SCREEN 3D [place]YSON CAD, 06/01/2022. INDICATIONS: Abnormal Mammogram Right Breast Calculator Name NCI Breast Cancer Risk Assessment Tool 5 Year Breast Cancer Risk 1.60% Lifetime Breast Cancer Risk 7.90% Personal Breast Cancer No Personal Ovarian Cancer No Treatments None Family Cancers Father with prostate cancer at age 55; Father with pancreatic cancer at age 60. LOCATION: [facility] BREAST COMPOSITION: There are scattered areas of fibroglandular density. FINDINGS: DIAGNOSTIC CATEGORY 2--BENIGN FINDING: LEFT BREAST: Process identified focal asymmetry partially compresses out on today's study. Ultrasound at the 3 o'clock position of the left breast within the retroareolar region demonstrates a small cyst measuring 2 mm . no solid component . RECOMMENDATIONS: ROUTINE MAMMOGRAM AND CLINICAL EVALUATION IN 12 MONTHS. Dictated by: Giovani Ramirez DO on 07/24/2025 at 13:50 Approved by: Giovani Ramirez DO on 07/24/2025 at 13:53 ADDENDUM: FINDINGS: RIGHT BREAST: Previously identified focal asymmetry partially compresses out on today's study. Ultrasound at the 3 o'clock position of the RIGHT breast within the retroareolar region demonstrates a small cyst measuring 2 mm . no solid component . RECOMMENDATIONS: Dictated by: Giovani Ramirez DO on 07/26/2025 at 10:40 Approved by: Giovani Ramirez DO on 07/26/2025 at 10:42
--- OUTSIDE RECORDS SUMMARY | 2025-07-24 13:00 | XMS_ITS | CCD ---
Author Organization [facility] Inform ion Partnership [facility] Care Team Providers Care Mattress Filler Name Role Phone ZHANE, DR JOYA Admitting [...] Provider Jason Phelan MD Primary Care Provider [phone] Jason Phelan MD Primary Care Provider JASON PHELAN Attending Unavailable JASON PHELAN Attending Unavailable JASON PHELAN Attending Unavailable JASON PHELAN Attending Unavailable JASON PHELAN Attending Unavailable JASON PHELAN Attending Unavailable JASON PHELAN Referring Unavailable Allergies Allergy ClassificationReported Allergen(s)Allergy TypeDate of OnsetReaction(s) Facility (20 sources)SulfamethoxazoleAllergy to lhyefedqa25-51-7925[facility] ([facility] sources)TrimethoprimDrug Bkqdqhm71-53-6452[facility] Medications Current Medications MedicationDrug Class(es)DatesSig (Normalized)Sig (Original)ALPRAZolam 0.25 mg oral tablet (20 sources)BenzodiazepineStart: 09-14-2022 End: 95-43-3131zrta 1 tablet by mouth three times daily as needed for anxiety ALPRAZolam (Xanax) 0.25 MG tablet Indications: Generalized anxiety disorder Take 1 tablet (0.25 mg)by mouth 3 (three) times a day as needed for anxiety for up to 10 days 15 tablet 03/13/2025 Activecitalopram 40 mg oral tablet (20 sources)Serotonin Reuptake InhibitorStart: 03-27-2024 End: 53-48-4785pcyp 1 tablet by mouth once dailycitalopram (CeleXA) 40 MG tablet Indications: Generalized anxiety disorder Take 1 tablet (40 mg) bymouth Daily 90 tablet 1 03/13/2025 09/09/2025 ActiveStart: 04-14-2023 End: 51-40-0779bzdm 1 tablet by mouth in the morningcitalopram (CeleXA) 40 MG tablet Indications: Generalized anxiety disorder (CMS/HCC) Take 1 tablet (40 mg) by mouth in the morning. 90 tablet 1 04/14/2023 10/11/2023 ActiveHormone Cream Base (HRT Cream Base Women) cream (20 sources)Start: 30-01-4626Zogznva Cream Base (HRT Cream Base Women) cream Indications: Menopausal syndrome , Hot flashes due to menopause Use 1 mL nightly days 1 through 25 of the month 0 04/21/2023 Activelevothyroxine sodium 0.1 mg oral tablet (20 sources)l-ThyroxineStart: 01-01-2025 End: 86-18-0123rjzh 1 tablet by mouth before mealtimelevothyroxine (Synthroid) 100 MCG tablet Indications: Central hypothyroidism Take 1 tablet (100 mcg) by mouth in the morning. Take before meals. 90 tablet 3 07/02/2025 07/02/2026 ActiveStart: 07-17-2024 End: 03-10-9490seoa 1 tablet by mouth before mealtimelevothyroxine (Synthroid) 88 MCG tablet Indications: Central hypothyroidism (CMS/HCC) Take 1 tablet(88 mcg) by mouth in the morning. Take before meals. 90 tablet 1 07/17/2024 01/01/2025 Discontinued(Reorder)Start: 06-22-2024 End: 07-54-6213dcaj 1 tablet by mouth before mealtimelevothyroxine (Synthroid) [...] reactions (2 sources)Inflammatory dermatosis; Translations: [Dermatitis, unspecified] 24-84-6284MoxbgidgUfjeqws disorders (20 sources)Generalized anxiety disorder; Translations: [Generalized anxiety disorder]Onset: 539959-88-3654RcdixtkWsjhaihmvk and other anemia (20 sources)Heterozygous thalassemia; Translations: [Thalassemia minor]Onset: 354578-04-3925DajnwwaJaornzhoxm and other anemia (2 sources)Iron deficiency anemia secondary to inadequate dietary iron intake; Translations: [Other iron deficiency anemias]65-94-2489HgsgwgjaZfrgkftovlqjk and screening for infectious disease (1 source)Encounter for screening for human papillomavirus (HPV); Translations: [ENC SCREENING HUMAN PAPILLOMAVIRUS]Onset: 58-72-7559IhtzypwyConccrz and fatigue (20 sources)Fatigue; Translations: [Chronic fatigue, unspecified]Onset: 604566-52-5138ApcochbOxzvvor and fatigue (2 sources)Fmlytwe70-98-6903TsutbivfAwvivdytic disorders (20 sources)Menopausal and female climacteric states; Translations: [Menopausal flushing]Onset: 088737-03-7804BulphtdXetprxnim disorders (2 sources)Amenorrhea; Translations: [Amenorrhea, unspecified]69-16-2048Zjtsdwb Nutritional deficiencies (2 sources)Iron deficiency; Translations: [Iron deficiency]51-71-2977Knslnirg Other and unspecified benign neoplasm (2 sources)Senile angioma; Translations: [Hemangioma of skin and subcutaneous tissue]97-11-3862OiqcuatnMbkvl non-traumatic joint disorders (2 sources)Joint pain; Translations: [Pain in unspecified joint]06-12-2024 EpisodicOther nutritional; endocrine; and metabolic disorders (20 sources)Insulin resistance; Translations: [Insulin resistance]Onset: 546483-24-9210IhzdmucMwzox screening for suspected conditions (not mental disorders or infectious disease) (15 sources)Encounter for screening for osteoporosis; Translations: [Encounter for screening for malignant neoplasm of cervix]Onset: 40-34-0071GfljcjcgJyhbxpzr codes; unclassified (1 source)Family history of malignant neoplasm of prostate; Translations: [FAMILY HX MALIG NEOPLASM PROSTATE]Onset: 00-27-8942LplkccivKwfezyij codes; unclassified (1 source)Family history of malignant neoplasm of other organs or systems; Translations: [FAM HX MALIG NEOPLASM OTH ORGN/SYS]Onset: 96-89-3451Eestrsjx Residual codes; unclassified (2 sources)Active advance directive (copy within chart) ; Translations: [Other specified health status]21-67-6265GaziboqdAodxumj disorders (20 sources)Thyroid nodule; Translations: [Nontoxic single thyroid nodule]Onset: 594427-76-4809Wvahbsz Past or Other Problems Problem ClassificationProblemDateDocumented DateEpisodic/ChronicConditions associated with dizziness or vertigo (20 sources)Vertigo; Translations: [Dizziness and giddiness]Onset: 04-01-2023 Resolved: 492001-16-6190GwabnpnzMaqekayhxg disorders (20 sources)Drug therapy status; Translations: [Hormone replacement therapy] Onset: 388943-23-8787TwrdksnsCcwbz connective tissue disease (20 sources)Poor posture; Translations: [Abnormal posture]Onset: 04-01-2023 14-23-1010ZbvxoexqAsqnn ear and sense organ disorders (20 sources)Bilateral tinnitus; Translations: [Tinnitus, bilateral]Onset: 119478-28-8096NsxhmgsnEjcjircaf and history of mental health and substance abuse codes (20 sources)Ex-smoker; Translations: [Personal history of nicotine dependence] Onset: 865600-52-0875Thlaobwq Results Test NameValueInterpretationReference RangeFacilityCOMPREHENSIVE METABOLIC PANEL on 00-43-1306Wjgddex [Mass/Vol]4.4 g/dLNormal3.6-5.1Quest DiagnosticsComment on above:Performed By: #### 7600, 866, 88124 #### [facility] [place] [address] Collections Officer: Zafar Stanford MDAlbumin/Globulin [Mass ratio]1.9 {ratio}Normal 1.0-2.5Quest DiagnosticsComment on above:Performed By: #### 7600, 866, 48062 #### [facility] [place] [address] Collections Officer: Zafar Stanford MDALP [Catalytic activity/Vol]36 U/ENcd16-981 Quest DiagnosticsComment on above:Performed By: #### 7600, 866, 89524 #### [facility] [place] [address] Collections Officer: Zafar Stanford MDALT [Catalytic activity/Vol]14 U/LNormal6-29 Quest DiagnosticsComment on above:Performed By: #### 7600, 866, 66720 #### [facility] [place] [address] Collections Officer: Zafar Stanford MDAST [Catalytic activity/Vol]13 U/AEbjcmy63-31 Quest DiagnosticsComment on above:Performed By: #### 7600, 866, 75692 #### [facility] [place] [address] Collections Officer: Zafar Stanford MDBilirubin [Mass/Vol]0.6 mg/dLNormal0.2-1.2 Quest DiagnosticsComment on above:Performed By: #### 7600, 866, 68465 #### [facility] [place] [address] Collections Officer: Zafar Stanford MDBUN/CREATININE RATIOSEE NOTE:Normal6-22Quest DiagnosticsComment on above:Result Comment: Not Reported: BUN and Creatinine are within reference range.Performed By: #### 7600, 866, 41000 #### [facility] of [address], [address] [place] [address] Collections Officer: Zafar Stanford MDCalcium [Mass/Vol]9.5 mg/dLNormal8.6-10.4Quest DiagnosticsComment on above:Performed By: #### 7600, 866, 54046 #### [facility] of [address], [address] [place] [address] Collections Officer: Zafar Stanford MDChloride [Moles/Vol]104 mmol/NNlcwio26-053 Quest DiagnosticsComment on above:Performed By: #### 7600, 866, 68947 #### [facility] [place] [address] Collections Officer: Zafar Stanford MDCO2 [Moles/Vol]30 mmol/SAsnauq86-46Exwge DiagnosticsComment on above:Performed By: #### 7600, 866, 47202 #### [facility] [place] [address] Collections Officer: Zafar MCBRIDEreatinine [Mass/Vol]0.68 mg/dLNormal0.50-1.05 Quest DiagnosticsComment on above:Performed By: #### 7600, 866, 88402 #### [facility] [place] [address] Collections Officer: Zafar Stanford MDGFR/1.73 sq M.predicted among non-blacks MDRD (S/P/Bld) [Vol rate/Area]99 mL/min/{1.73_m2}Normal> OR = 60[facility] Comment on above:Performed By: #### 7600, 866, 17027 #### [facility] [place] [address] Collections Officer: Zafar Stanford MDGlobulin (S) [Mass/Vol]2.3 g/dLNormal1.9-3.7 Quest DiagnosticsComment on above:Performed By: #### 7600, 866, 78712 #### [facility] [place] [address] Collections Officer: Zafar Stanford MDGlucose [Mass/Vol]87 mg/oENxolvu90-74Uikmk DiagnosticsComment on above:Result Comment: Fasting reference intervalPerformed By: #### 7600, 866, 58210 #### [facility] [place] [address] Collections Officer: Zafar Stanford MDPotassium [Moles/Vol]4.5 mmol/LNormal3.5-5.3 Quest DiagnosticsComment on above:Performed By: #### 7600, 866, 16106 #### [facility] [place] [address] Collections Officer: Zafar Stanford MDProtein [Mass/Vol]6.7 g/dLNormal6.1-8.1Quest DiagnosticsComment on above:Performed By: #### 7600, 866, 07729 #### [facility] [place] [address] Collections Officer: Zafar Stanford MDSodium [Moles/Vol]138 mmol/EAfqxvl632-962Uwtdi DiagnosticsComment on above:Performed By: #### 7600, 866, 36684 #### [facility] [place] [address] Collections Officer: Zafar Stanford MDUrea nitrogen [Mass/Vol]15 mg/dLNormal7-25 Quest DiagnosticsComment on above:Performed By: #### 7600, 866, 31964 #### [facility] [place] [address] Collections Officer: Zafar Stanford MDLIPID PANEL, STANDARDon 56-55-1632Derbdbjvgbb [Mass/Vol]171 mg/dLNormal<200Quest DiagnosticsComment on above:Order Comment: FASTING:YES FASTING: YESPerformed By: #### 7600, 866, 87841 #### [facility] [address], [address] [place] [address] Collections Officer: Zafar MCBRIDEholesterol in HDL [Mass/Vol]43 mg/dLLow> OR = 50Quest DiagnosticsComment on above:Order Comment: FASTING:YES FASTING: YESPerformed By: #### 7600, 866, 18770 #### [facility] [address], [address] [place] [address] Collections Officer: Zafar MCBRIDEholesterol in LDL [Mass/Vol]112 mg/dLHigh Quest [...] Thony SS et al. JUAN DAVID. 2013;310(19): 5277-7802 (http://education.GuidePal/faq/OCK520)Performed By: #### 7600, 866, 67357 #### [facility] [address], [address] [place] [address] Collections Officer: Zafar Diaz.total/Cholesterol in HDL [Mass ratio]4.0 {ratio}Normal<5.0Quest DiagnosticsComment on above:Order Comment: FASTING:YES FASTING: YESPerformed By: #### 7600, 866, 73558 #### [facility] [address], [address] [place] [address] Collections Officer: Zafar POTTS HDL FXRBZACNVSR450 mg/dL (calc)Normal<130 Quest DiagnosticsComment on above:Order Comment: FASTING:YES FASTING: YESResult Comment: For patients with diabetes plus 1 major ASCVD risk factor, treating to a non-HDL-C goal of <100 mg/dL (LDL-C of <70 mg/dL) is considered a therapeutic option.Performed By: #### 7600, 866, 84139 #### [facility] [address], [address] [place] [address] Collections Officer: Zafar Stanford MDTriglyceride [Mass/Vol]71 mg/dLNormal<150Quest DiagnosticsComment on above:Order Comment: FASTING:YES FASTING: YESPerformed By: #### 7600, 866, 40361 #### [facility] [address], [address] [place] [address] Collections Officer: Zafar Stanford MDT4, FREE 36-47-9297Nqnv T4 [Mass/Vol]1.3 ng/dLNormal0.8-1.8Quest DiagnosticsComment on above:Performed By: #### 7600, 866, 82626 #### [facility] [place] [address] Collections Officer: Zafar Stanford MDDHEA SULFATEon 18-29-1620NZKR SJQHWBX92 mcg/dL Normal9-118Quest DiagnosticsComment on above:Performed By: #### 745, 4021, 402 #### [facility] [place] [address] Collections Officer: Zafar Stanford MD #### 23787 #### [facility] [address] [facility] [place], [place] Collections Officer: Antony Verduzco M.D.,PhD #### 84244 #### [facility], [address] [place] [address] Collections Officer: Roro Fung MD,PhD,MBAESTRADIOLon 40-81-6764YZCWSUOAR95 pg/mLNormalQuest DiagnosticsComment on above:Result Comment: Reference Range Follicular Phase: 19-144 Mid-Cycle: 64-357 Luteal Phase: 56-214 Postmenopausal: < or = 31 Reference range established on post-pubertal patient population. No pre-pubertal reference range established using this assay. For any patients for whom low Estradiol levels are anticipated (e.g. males, pre-pubertal children and hypogonadal/post-menopausal females), the [employer] [facility] Estradiol, Ultrasensitive, LCMSMS assay is recommended (order code 80528). Please note: patients being treated with the drug fulvestrant (Faslodex(R)) have demonstrated significant interference in immunoassay methods for estradiol measurement. The cross reactivity could lead to falsely elevated estradiol test results leading to an inappropriate clinical assessment of estrogen status. [employer] order code 80766-Gzleflron, Ultrasensitive LC/MS/MS demonstrates negligible cross reactivity with fulvestrant.Performed By: #### 745, 4021, 402 #### [employer] [address], [address] [place] [address] Collections Officer: Zafar Stanford MD #### 27025 #### [employer] [address] [place] [address] Collections Officer: Antony Verduzco M.D.,PhD #### 65162 #### [employer]/[address] [address] Collections Officer: Roro Fung MD,PhD,MBAESTRIOL, SERUMon 51-76-5871MSNZMRA, SERUM<0.10NormalEmployyd.com DiagnosticsComment on above:Result Comment: Adult Reference Ranges for Estriol: Adult Males: < or = 0.18 ng/mL Adult Females (non): < or = 0.21 ng/mL : First Trimester: < or = 2.50 ng/mL Second Trimester: < or = 9.60 ng/mL Third Trimester: < or = 14.60 ng/mL This test was developed and its analytical performance characteristics have been determined by [employer]. It has not been cleared or approved by the FDA. This assay has been validated pursuant to the CLIA regulations and is used for clinical purposes.Performed By: #### 745, 4021, 402 #### [employer] [address], [address] [place], [place] [address] Collections Officer: Zafar Stanford MD #### 27251 #### [facility]/[address] [place], [place] Collections Officer: Antony Verduzco M.D.,PhD #### 31634 #### [facility] [address] [place] [address] Collections Officer: Roro Fung MD,PhD,MBAPROGESTERONEon 73-05-0026XFNDHZWMPDTZ 2.1 ng/mLNormalQuest DiagnosticsComment on above:Result Comment: Reference Ranges Female Follicular Phase < 1.0 Luteal Phase 2.6-21.5 Post menopausal < 0.5 1st Trimester 4.1-34.0 2nd Trimester 24.0-76.0 3rd Trimester 52.0-302.0Performed By: #### 745, 4021, 402 #### [facility] [place] [address] [facility], [address] Collections Officer: Zafar Stanford MD #### 58458 #### [facility]/[address] [place], [place] Collections Officer: Antony Verduzco M.D.,PhD #### 60123 #### [facility] [address] [place] [address] Collections Officer: Roro Fung MD,PhD,MBATESTOSTERONE, TOTAL, MSon 04-29-2025 TESTOSTERONE, TOTAL, MS9 ng/dLNormal-Quest DiagnosticsComment on above:Result Comment: For additional information, please refer to http://education.Common Ground.Priceza/faq/ IyitcCjiseimaymxbEDZMSOFVM641 (This link is being provided for informational/ educational purposes only.) This test was developed and its analytical performance characteristics have been determined by [employer] [place], [place]. It has not been cleared or approved by the U.S. Food and Drug Administration. This assay has been validated pursuant to the CLIA regulations and is used for clinical purposes.Performed By: #### 745, 4021, 402 #### [facility] [address], [address] [place] [address] Collections Officer: Zafar Stanford MD #### 16027 #### [employer]/[facility] [address] [facility] [place], [place] Collections Officer: Antony Verduzco M.D.,PhD #### 97079 #### [employer] [address] [place] [address] Collections Officer: Roro Fung MD,PhD,MBAMETRO IRON AND TIBCon 12-16-2024 Interpretation and review of laboratory resultsAbnormalNOMS HealthcareTB IRON 113 ug/dL50.0 - 170.0 ug/dLNOTX HealthcareTB PERCENT IRON VKTAKLGSIX71.9 %NOMS HealthcareTB TOTAL IRON BINDING OFYKYMFB818 ug/bKRtc328.0 - 450.0 ug/dLNOFreeman Health SystemCLINISYNCNOMS [facility] BRAIN WO CONTRASTon 54-31-1297PB BRAIN WO CONTRASTMR BRAIN WO CONTRAST Reason [...] the interpreting Radiologist.NormalNot AvailableALL THYROXINE (T4) FREEon 70-23-1598Pomf T4 [Mass/Vol]0.94 ng/dL0.76 - 1.46 ng/dLNOMS HealthcareCLINISYNCNOMS HealthcareUS Thyroid glandon 36-81-1150I[address] [address] Ultrasound Report Signed Patient: SONAL AGUILLON MR#: [id number] : 1965 Acct:[id number] Age/Sex: 58 / F ADM Date: 06/30/24 Loc: US Attending Dr: JASON PHELAN Ordering Physician: JASON PHELAN Date of Service: 06/30/24 Procedure(s): US thyroid Accession Number(s): [id number] cc: JASON PHELAN [address] [address] Patient Name: SONAL AGUILLON MRN: [id number] date: 1965 Sex: F Assigned Patient Location: [place] Current Patient Location: Accession/Order Number: [id number] Exam Date: 06/30/2024 10:55 Report Date: 07/03/2024 [...] Signed By: 07/03/24 1114 DD/ 111 TD/TT: Sales Lead Generator:TBHRadiology, Radiologist, MD - 07/03/[address] [address] Ultrasound Report Signed Patient: SONAL AGUILLON MR#: [id number] : 1965 Acct:[id number] Age/Sex: 58 / F ADM Date: 06/30/24 Loc: US Attending Dr: JASON PHELAN Ordering Physician: JASON PHELAN Date of Service: 06/30/24 Procedure(s): US thyroid Accession Number(s): [id number] cc: JASON PHELAN [place] [address] Patient Name: SONAL AGUILLON MRN: [id number] date: 1965 Sex: F Assigned Patient Location: [place] Current Patient Location: Accession/Order Number: [id number] Exam Date: 06/30/2024 10:55 Report Date: 07/03/2024 [...] Signed By: 07/03/24 111 DD/ 111 TD/TT: Sales Lead Generator: ZOIE HealthcareRadiology Study observation (narrative)ZOIE BaldwinUS Thyroid glandOrdered By: Radiologist Radiology on 16-82-4726JCVN Healthcare Work Phone: aLL FOLLICLE STIMULATING HORMONEon 53-05-7522ICD64.3 [facility] HealthcareComment on above:Adult Female Range Follicular phase 3.5 - 12.5 Ovulation phase 4.7 - 21.5 Luteal phase 1.7 - 7.7 Postmenopausal 25.8 - 134.8 Performed at: [facility] [address] [id number] Radio Script Writer: Lalit Burden PhD, Phone: [phone] [facility] CORTISOLon 49-98-9139SKI CORTISOL9.6 ug/dL6.2 - 19.4 ug/dLNOTX Healthcare Comment on above:Please Note: The reference interval and flagging for this test is for an AM collection. If this is a PM collection please use: Cortisol PM: 2.3-11.9 No Panel Informationon 39-85-1007WUSUJYMPIQMTM HealthcareALL LIPID PROFILE (FASTING)on 73-40-2810MVWD HDL RATIO3.7NOTX HealthcareComment on above:3.3 - 4.4 LOW RISK 4.4 - 7.1 AVERAGE RISK 7.1 - 11.0 MODERATE RISK >11.0 HIGH RISK Cholesterol [Mass/Vol]175 mg/dLNINF - 200 mg/dLNOMS HealthcareCholesterol in HDL [Mass/Vol]47 mg/dL40 - 60 mg/dLNOTX HealthcareComment on above:> or =60 mg/dl - LOW CARDIOVASCULAR RISK <40 mg/dl - HIGH CARDIOVASCULAR RISK Magnesium [Mass/Vol]118 mg/dLNOTX HealthcareComment on above:<100 mg/dl OPTIMAL 100-129 mg/dl NEAR OR ABOVE OPTIMAL 130-159 mg/dl BORDERLINE HIGH 160-189 mg/dl HIGH >190 mg/dl VERY HIGH Magnesium [Mass/Vol]10 mg/dLNOTX HealthcareTriglyceride [Mass/Vol]50 mg/dLNINF - 150 mg/dLNOTX HealthcareCCF CMP (CMP) (FOR REMOTE [facility] USE)on 24-21-4099Txahvvq [Mass/Vol]4 g/dL3.4 - 5.0 g/dLNOMS HealthcareALBUMIN GLOBULIN [...] mmol/L136 - 145 mmol/LNOMS HealthcareTBH EGFR-NON AF NIUEAN>60 >=60 mL/min/1.73m 2NOMS HealthcareUrea nitrogen [Mass/Vol]15 mg/dL7.0 - 18.0 mg/dLNOTX HealthcareUrea nitrogen/Creatinine [Mass ratio]20 mg/mgNOMS Healthcare No Panel Informationon 45-91-2415CEYWIITEJKANL HealthcareALL T3 REVERSEon 65-58-5609KTMAUCY T3, SERUM12.5 ng/dL9.2 - 24.1 ng/dLNOTX HealthcareComment on above:This test was developed and its performance characteristics determined by [facility]. It has not been cleared or approved by the Food and Drug Administration. Performed at: [address] [id number] Radio Script Writer: Margaret Rene MD, Phone: [phone] [facility] T3 TOTALon 51-77-2729Hqbqrhynqobmdz and review of laboratory results AbnormalNOMS HealthcareTBH TRIIODOTHYRONINE (T3)61 ng/cEZtfsohqx62 - 180 ng/dL [facility] HealthcareComment on above:Performed at: [address] [id number] Radio Script Writer: Lalit Burden PhD, Phone: [phone] No Panel Informationon 95-16-1566ZTGFYRHDKNJTV HealthcareTB THYROID ANTIBODIES on 11-13-6271SXKFMMVADUQAB ANTIBODY<1.0NOTX HealthcareComment on above: Thyroglobulin Antibody measured by Dave Clyde Methodology It should be noted that the presence of thyroglobulin antibodies may not be pathogenic nor diagnostic, especially at very low levels. The assay arts and crafts instructor has found that four percent of individuals without evidence of thyroid disease or autoimmunity will have positive TgAb levels up to 4 IU/mL. Performed at: [address] [id number] Radio Script Writer: Lalit Burden PhD, Phone: [phone] THYROID PEROXIDASE (TPO) BT50ICYUSoutheast Missouri Community Treatment Center MISCELLANEOUS TESTon 06-14-2024 MISCELLANEOUS TESTCOMMENT.[facility] HealthcareComment on above:Test Ordered: [id number] SWATHI, IFA Rfx 11 Manuel Multiplex SWATHI by IFA Rfx Titer/Pattern Negative CB Reference Range: . Negative <1:80 Borderline 1:80 Positive >1:80 ICAP nomenclature: AC-0 For more information about Hep-2 cell patterns use ANApatterns.org, the official website for the International Consensus on Antinuclear Antibody (SWATHI) Patterns (ICAP). Performed at: [address] [id number] Radio Script Writer: Lalit Burden PhD, Phone: [phone] SWATHI by IFA, Reflex to 11-biomarker Profile, dsDNA, PUNCHBOARD STUFFER, Sm, CLINISYNCNOMS HealthcareALL CBC WITH AUTO DIFFon 09-34-7133QABDJOGFU ABSOLUTE JDYA9AHGY HealthcareBasophils/100 WBC (Bld)0.4 %0.2 - 2.0 %NOMS [facility] Eosinophils/100 WBC (Bld)2.1 %0.9 - 7.0 %NOMS HealthcareErythrocyte distribution width (RBC) [Ratio]15.9 %High11.0 - 15.0 %NOM HealthcareHematocrit (Bld) [Volume fraction]34.2 %Low36.0 - 48.0 %[facility] HealthcareHemoglobin (Bld) [Mass/Vol]10.5 g/dLLow12.0 - 16.0 g/dLNOTX HealthcareIMMATURE GRANULOCYTES ABS AUTO0.02NOFreeman Health SystemImmature granulocytes/100 WBC (Bld)0.3 %0.0 - 0.5 %[facility] JoplinInterpretation and review of laboratory resultsAbnormalNOFreeman Health System LYMPHOCYTES ABSOLUTE AUTO2.2NOMS [facility]ron CampusLymphocytes/100 WBC (Bld)28.9 %20.5 - 60.0 %[facility] HospitalH (RBC) [Entitic mass]21.3 pgLow26.7 - 34.0 pgNOFreeman Health SystemMCHC (RBC) [Mass/Vol]30.7 g/dL29.9 - 35.2 g/dLMercy Hospital JoplinMCV (RBC) [Entitic vol]69.2 fLLow81.0 - 99.0 fLMercy Hospital JoplinMONOCYTES ABSOLUTE AUTO0.5 [facility] JoplinMonocytes/100 WBC (Bld)6.9 %1.7 - 12.0 %[facility] NEUTROPHILS ABSOLUTE AUTO4.7NOFreeman Health SystemNeutrophils/100 WBC (Bld)61.4 %43.0 - 75.0 %[facility] Hospital JoplinPlatelet mean volume (Bld) [Entitic vol]10.3 fL9.5 - 13.5 fLMercy Hospital JoplinTBH EO #0.2NOMS [facility]ron CampusTB [id number] [place] [facility] RBC4.94 [facility] JoplinTB WBC7.7NOFreeman Health SystemCLINISYNCNSaint John's Breech Regional Medical CenterMM TOMOSYNTHESIS SCREENING BIon 74-96-9563[place] [address] Mammography Report Signed Patient: SONAL AGUILLON MR#: [id number] : 1965 Acct:[id number] Age/Sex: 58 / F ADM Date: 06/12/24 Loc: MAMMO Attending Dr: JASON PHELAN Ordering Physician: JASON PHELAN Results: Date of Service: 06/12/24 Follow Up: Procedure(s): MM tomosynthesis screening BI Accession Number(s): [id number] cc: JASON PHELAN Patient Name: SONAL AGUILLON MR#: [id number] : 1965 Exam Date: 06/12/2024 Ordering Doctor: [...] pancreatic cancer at age 58. LOCATION: [facility] BREAST COMPOSITION: There are scattered areas of [...] Signed By: 06/12/24 1457 DD/ 1456 TD/TT: Sales Lead Generator:TBHRadiology, RadiologistMD - 06/12/2024 [place] [address] Mammography Report Signed Patient: SONAL AGUILLON MR#: [id number] : 1965 Acct:[id number] Age/Sex: 58 / F ADM Date: 06/12/24 Loc: MAMMO Attending Dr: JASON PHELAN Ordering Physician: JASON PHELAN Results: Date of Service: 06/12/24 Follow Up: Procedure(s): MM tomosynthesis screening BI Accession Number(s): [id number] cc: JIMENEZRAFIQJASON Patient Name: SONAL AGUILLON MR#: [id number] : 1965 Exam Date: 06/12/2024 Ordering Doctor: [...] pancreatic cancer at age 58. LOCATION: [facility] BREAST COMPOSITION: There are scattered areas of [...] Signed By: 06/12/24 1457 DD/ 1456 TD/TT: Sales Lead Generator: [facility] JoplinRadiology Study observation (narrative)[facility] TOMOSYNTHESIS SCREENING BIOrdered By: Radiologist Radiology on [id number] Hospital Joplin Work Phone: XR DEXA BONE DENSITYon 11-93-9956DF DEXA BONE DENSITY EXAMINATION: XR DEXA BONE [...] Electronically authenticated by: CHANTE CORTEZ Date: 2022-06-29 17:06Ault[facility] HospitalOG PANEL 2: 30 to 65on 06-06-2022..NormalThe Memorial Health SystemComment on above:Result Comment: Performed at: WBPerformed By: #### [id number] #### [facility] [address] [place] [address] Dr. May TaborAge Gdln ACOG Jqxrmgv15-21FkakehJnlWayne HospitalComment on above:Performed By: #### [id number] #### [facility] [address] [place] [address] Dr. May TaborDIAGNOSIS:CommentSelect Medical [facility] Rehabilitation Hospital on above: Result Comment: NEGATIVE FOR INTRAEPITHELIAL LESION OR MALIGNANCY. Performed at: WBPerformed By: #### [id number] #### [facility] [address] [place] [address] Dr. May TaborHPV AptimaNegativeNormalNegativeGuernsey Memorial HospitalComgarden city hospital on above:Result Comment: This nucleic acid amplification test detects fourteen high-risk HPV types (16,18,31,33,35,39,45,51,52,56,58,59,66,68) without differentiation. Performed at: =GPerformed By: #### [id number] #### [facility] [address] [place] [address] Dr. May TaborMethodology:CommentSelect Medical OhioHealth Rehabilitation Hospital on above: Result Comment: This liquid based ThinPrep(R) pap test was screened with the use of an image guided system. Performed at: WBPerformed By: #### [id number] #### [facility] [address] [place] [address] Dr. May TaborNote:CommentSelect Medical OhioHealth Rehabilitation Hospital on above:Result Comment: The Pap smear is a screening test designed to aid in the detection of premalignant and malignant conditions of the uterine cervix. It is not a diagnostic procedure and should not be used as the sole means of detecting cervical cancer. Both false-positive and false-negative reports do occur. . Performed at: Performed By: #### [id number] #### [facility] [address] [address] [address] May TaborPerformed by:CommentSelect Medical OhioHealth Rehabilitation Hospital on above: Result Comment: Marlee Joyce, Reset Merchandiser (ASCP) Performed at: WBPerformed By: #### [id number] #### [facility] [address] [address] [address] May TaborSpecimen adequacy:CommentSelect Medical OhioHealth Rehabilitation Hospital on above:Result Comment: Satisfactory for evaluation. Endocervical and/or squamous metaplastic cells (endocervical component) are present. Performed at: Performed By: #### [id number] #### [facility] [address] [place] [address] Dr. May TaborMG MAMM SCREEN 3D ALLYSON CADon 81-25-0691JT MAMM SCREEN 3D ALLYSON CAD Patient: SONAL AGUILLON Exam Date: 06/01/2022 : 1965 Gender:F Ordering : DR JASON PHELAN . Admission #: [id number] Family : Order #: [id number] CLICK HERE TO VIEW EXAM RADIOLOGY REPORT [...] pancreatic cancer at age 58. LOCATION: [facility] BREAST COMPOSITION: Scattered areas fibroglandular [...] by: Chante Cortez MD on 06/01/2022 at 14:14[facility] Vital Signs Date TimeVital SignValuePerforming VqsvncaxaWyhagufm90-12-1779 10:55-0500Body .6 Lois Phelan MD Work Phone: [phone] [place], [place] 9800511-10-2025 10:55-0500Body mass index (BMI) [Ratio]24.2 kg/j7IrbmqpJason Phelan MD Work Phone: [phone] [place], [place] 9800511-10-2025 10:55-0500Body jcaudp45.96 kgJason Phelan MD Work Phone: [phone] [place], [place] 9800505-12-2025 15:54-0400Body silokg112.6 Lois Phelan MD Work Phone: [phone] [place], [place] 9800505-12-2025 15:54-0400Body mass index (BMI) [Ratio]25.06 kg/o4NcvfyzJason Phelan MD Work Phone: [phone] [place], [place] 9800505-12-2025 15:54-0400Body hzyfdc64.22 kgJason Phelan MD Work Phone: [phone] [place], [place] 9800501-28-2025 15:26-0500Body fjeoid117.6 Lois Phelan MD Work Phone: [phone] [place], [place] 9800501-28-2025 15:26-0500Body mass index (BMI) [Ratio]25.06 kg/s6HwkcxoJason Phelan MD Work Phone: [phone] [place], [place] 9800501-28-2025 15:26-0500Body bjzega87.22 kgJason Phelan MD Work Phone: [phone] [place], [place] 9800510-28-2024 15:24-0400Body .6 Lois Phelan MD Work Phone: [phone] [place], [place] 9800510-28-2024 15:24-0400Body mass index (BMI) [Ratio]25.15 kg/w6OfcczzJason Phelan MD Work Phone: [phone] JoplinXhnoyyqgdc27-52-0178 15:24-0400Body jgxziw66.45 kgJason Phelan MD Work Phone: [phone] JoplinDjavuioeva37-28-2210 09:26-0400Body yegkxl005.6 cmEedilia Phelan MD Work Phone: [phone]10-21-2024 09:26-0400Body mass index (BMI) [Ratio]25.15 kg/u8YzajwqJason Phelan MD Work Phone: [phone] IncDi[facility] JoplinNfujtskooz28-16-2945 09:26-0400Body slozrq20.45 kgJason Phelan MD Work Phone: [phone] JoplinZrtndqwcej95-19-6192 09:26-0400Diastolic blood rutmdrbc22 mm[Hg]Jason Phelan MD Work Phone: [phone] [place], [place] [address]Bzwrzyjtfi45-15-5925 09:26-0400Heart rate68 /min Jason Phelan MD Work Phone: [phone] JoplinMkbdlskxoh59-54-7929 09:26-9503TmL2% (BldA) [Mass fraction]98 %Jason Phelan MD Work Phone: [phone] JoplinBalrwadvxi45-99-3861 09:26-0400Systolic blood uzegrsec870 mm[Hg]Jason Phelan MD Work Phone: [facility] Healthcare Encounters Encounter DateEncounter TypeCare ProviderFacilityStart: 07-02-2025 End: 87-73-2648Wukbyu flowsheetJason Phelan MD Work Phone: [facility] [address] Family MedicineStart: 07-02-2025 End: 88-11-0420Klcspw flowsheetJason Phelan MD Work Phone: [facility] [address] Family MedicineStart: 07-02-2025 End: 79-87-9024Xxojqpz encounter procedureJason Phelan MD Work Phone: [facility] [address] [facility] MedicineComment on above:Central hypothyroidism; Chronic fatigueStart: 07-02-2025 End: 59-88-7394oqsahhuwexMSEQFZ J HEMEYERNot AvailableStart: 06-26-2025 End: 21-08-9891Pgwztx flowsZev Phelan MD Work Phone: [facility] [address] [facility] MedicineStart: 06-26-2025 End: 96-30-0462Zmhyra flowsZev Phelan MD Work Phone: [facility] [address] [facility] MedicineStart: 06-26-2025 End: 01-73-9404sjugshzxtlAIUFYX J HEMEYERNot AvailableStart: 04-30-2025 End: 90-90-7999Pxyxdy-up encounterEdmojgan Phelan MD Work Phone: [facility] [address] [facility]ent BaldwinComment on above:DHEA- sulfate, Estradiol, ESTRIOL, SERUM, Additional followed-up results: 2Start: 03-13-2025 End: 50-02-0310Qxalnt outpatient visit 15 minutesEdmojgan Phelan MD Work Phone: [facility] CI FM 100Comment on above:Generalized anxiety disorder (Primary Dx); Former smoker; Hot flashes due to menopause; Hormone replacement therapy; Chronic fatigueStart: 03-13-2025 End: 35-82-3149yvsmwgmhtiHNKUVP J HEMEYERNot AvailableStart: 03-13-2025 End: 89-54-3178Giohvz flowsZev Phelan MD Work Phone: [facility] CI FM 100Start: 03-13-2025 End: 40-42-9208Xuxegq Braydon Phelan MD Work Phone: [facility] CI FM 100Start: 01-01-2025 End: 63-13-0150Apgqzw outpatient visit 25 minutesJason Phelan MD Work Phone: [facility] CI FM 100Comment on above:Central hypothyroidism (CMS/HCC) (Primary Dx); Chronic fatigue; Former smoker; Insulin resistance; Heterozygous thalassemiaStart: 01-01-2025 End: 03-44-0772fpillxsheoXDFLFC J HEMEYERNot AvailableStart: 01-01-2025 End: 47-27-5740Fzmlhh flowsZev Phelan MD Work Phone: [facility] CI FM 100Start: 01-01-2025 End: 43-28-1172Ercfrw flowsZev Phelan MD Work Phone: [phone] CI FM 100Start: 12-16-2024 End: 40-97-4693Ljwjgcxcz Result Tona Phelan MD Work Phone: [facility] External Department UnsolicitedStart: 12-16-2024 End: 02-84-5812Ifylxfscj Result Tona Phelan MD Work Phone: NOJY External Department UnsolicitedStart: 10-19-2024 End: 81-14-7044Hhsuot OnlyJason Phelan MD Work Phone: [facility] CI FM 100Start: 10-12-2024 End: 15-62-0720BjwzlsHpipqu J Hemeyer MD Work Phone: [facility] BNS FMComment on above:Menopausal syndrome; Hot flashes due to menopauseStart: 09-19-2024 End: 47-74-8904Cqnniu outpatient visit 10 minutesJason Phelan MD Work Phone: [facility] CI FM 100Comment on above:Generalized anxiety disorder (CMS/HCC); Former smokerStart: 09-19-2024 End: 21-16-0526spizymwancDADKVM J HEMEYERNot AvailableStart: 09-19-2024 End: 33-65-3190Vspwcd flowsZev Phelan MD Work Phone: [facility] CI FM 100Start: 09-19-2024 End: 99-42-5667Fbdvyh flowsZev Phelan MD Work Phone: [facility] CI FM 100Start: 07-26-2024 End: 96-95-9418yhpgflyezsPGYGCI J HEMEYERNot AvailableStart: 07-17-2024 End: 92-39-8033Efapph flowsheetJason Phelan MD Work Phone: [facility] CI FM 100Start: 07-17-2024 End: 94-81-7005Zvkvmn flowsheetJason Phelan MD Work Phone: [phone] CI FM 100Start: 07-17-2024 End: 20-02-8211Vxwsjo outpatient visit 15 minutesEdmojgan Phelan MD Work Phone: [phone] CI FM 100Comment on above:Central hypothyroidism (CMS/HCC) (Primary Dx); Chronic fatigue; Former smoker; Iron deficiencyStart: 07-17-2024 End: 54-64-7045ofwkvqfepvUZNBIW J HEMEYERNot AvailableStart: 07-10-2024 End: 47-26-3584Qcrjhugpk Result EncounterEdmojgan Phelan MD Work Phone: [facility] External Department UnsolicitedStart: 07-10-2024 End: 53-79-2989Blgkkkxpd Result EncounterEdmojgan Phelan MD Work Phone: [facility] External Department UnsolicitedStart: 07-03-2024 End: 57-38-9452Ycujilfmw Result Tona Phelan MD Work Phone: [facility] External Department UnsolicitedStart: 07-03-2024 End: 47-57-1615Abxfingka Result EncounterEdmojgan Phelan MD Work Phone: [facility] External Department UnsolicitedStart: 07-03-2024 End: 29-86-6786Aoznwivgu encounterEdmojgan Phelan MD Work Phone: [facility] CI FM 100Start: 07-01-2024 End: 30-11-4349Ajdeezexb Result EncounterEdmojgan Phelan MD Work Phone: [facility] External Department UnsolicitedStart: 07-01-2024 End: 89-67-2058Jqpkzjjqa Result Tona Phelan MD Work Phone: NOUD External Department UnsolicitedStart: 06-30-2024 End: 03-10-8235Vpcfxdwzj Result Tona Phelan MD Work Phone: NOEM External Department UnsolicitedStart: 06-30-2024 End: 80-91-0760Nptnydlsj Result Tona Phelan MD Work Phone: NOSF External Department UnsolicitedStart: 06-22-2024 End: 90-56-7757Egaxru outpatient visit 25 minutesJason Phelan MD Work Phone: [phone] CI FM 100Comment on above:Amenorrhea (Primary Dx); Central hypothyroidism (CMS/HCC); Chronic fatigue; Iron deficiency anemia secondary to inadequate dietary iron intakeStart: 06-22-2024 End: 24-16-5559Ykzqur Braydon Phelan MD Work Phone: [facility] FM 100Start: 06-22-2024 End: 53-71-7261Kzfpms Braydon Phelan MD Work Phone: [facility] CI FM 100Start: 06-19-2024 End: 62-04-7862Hsbylc outpatient visit 25 minutesJason Phelan MD Work Phone: [facility] CI FM 100Comment on above:Hot flashes due to menopause (Primary Dx); Hormone replacement therapyStart: 06-19-2024 End: 45-52-9156Sbntjc Braydon Phelan MD Work Phone: [facility] CI FM 100Start: 06-19-2024 End: 47-00-4854Xarkao Braydon Phelan MD Work Phone: [facility] CI FM 100Start: 06-12-2024 End: 84-52-2153Xtwpdg Braydon Phelan MD Work Phone: [facility] CI FM 100Start: 06-12-2024 End: 71-34-3625Snreyrjarad Phelan MD Work Phone: [facility] CI FM 100Start: 06-12-2024 End: 10-46-1565Mfxfyrvzd Result EncounterEdmojgan Phelan MD Work Phone: NOIR External Department UnsolicitedStart: 06-12-2024 End: 52-42-6301Crcdjgw encounter statusEdmojgan Phelan MD Work Phone: [facility] Work Phone: Start: 06-12-2024 End: 67-77-8748Hdmkwusk preventive med est patient 40-64yrsEedilia Phelan MD Work Phone: [facility] CI FM 100Comment on above:Encounter for wellness examination in adult; Advance directive in chart; Screening for diabetes mellitus (DM); Screening for lipid disorders; Screening mammogram, encounter for; Former smoker; Dermatitis; Freitas angioma; Chronic fatigue; Arthralgia, unspecified joint; Thyroid nodule (CMS/HCC)Start: 29-81-2922Rlvrkx Braydon Phelan MD Work Phone: [facility] S FMStart: 13-86-5268Lfhvta Braydon Phelan MD Work Phone: [facility] S FMStart: 61-55-1765Qgioa abstractingEedilia Phelan MD Work Phone: [facility] FMStart: 06-29-2022 End: 63-11-5573cxcowljwjsRQ EDWARD HEMEYERFacility:N0Onfwh: 06-01-2022 End: 42-57-0148vblsmqliotSO SALLY HERNANDEZFacility:N9Zzkod: 06-01-2022 End: 31-40-0060vdozlqfmpcFC JASON PHELANFacility:H1 Procedures DateProcedureProcedure DetailPerforming ClinicianStart: 75-79-7265ETKFW IRON AND TIBDelvis Phelan MD Work Phone: Start: 76-14-5957KQZ THYROXINE (T4) FREEJason Phelan MD Work Phone: Start: 98-77-0716Ue soft tissue head & neck real time imge docKingsley Phelan MD Work Phone: Start: 29-96-8028BOC FOLLICLE STIMULATING HORMONE Jason Phelan MD Work Phone: Start: 69-86-8236MDOK CORTISOLEdmojgan Phelan MD Work Phone: Start: 71-31-9426EZX LIPID PROFILE (FASTING)Jason Phelan MD Work Phone: Start: 55-57-6274EEV CMP (CMP) (FOR REMOTE [facility] USE) Jason Phelan MD Work Phone: Start: 89-55-8489DF TOMOSYNTHESIS SCREENING BIJason Phelan MD Work Phone: Start: 17-06-5798JMW CBC WITH AUTO DIFFEdmojgan Phelan MD Work Phone: Start: 49-36-9813VES MISCELLANEOUS TESTEdmojgan Phelan MD Work Phone: Start: 36-10-3817BPW T3 REVERSEEdmojgan Phelan MD Work Phone: Start: 72-65-4055KLVS T3 TOTALEdmojgan Phelan MD Work Phone: Start: 26-43-1201HBV THYROID ANTIBODIESJason Phelan MD Work Phone: Start: 97-67-8841FtmputgxpznCbcvqr Hemeyer MD Work Phone: Start: 13-86-8886YhivivmzwgnKfduwe Hemeyer MD Work Phone: Start: 02-29-5255ZxsmscmtjiwNwgzzk Hemeyer MD Work Phone: Plan of Treatment DateCare ActivityDetailAuthorStart: 45-12-9536Vjwxxvhvs for malignant neoplasm of colonNOMS HealthcareStart: 07-02-2026 End: 39-93-4915Ymiisutif (T4) free [Mass/volume] in Serum or PlasmaT4, free Lab Routine Central hypothyroidism Chronic fatigue Expected: 07/02/2026 (Approximate), Expires: 09/30/2026[facility] Work Phone: Comment on above:Expected: 07/02/2026 (Approximate), Expires: 09/30/2026Start: 07-02-2026 End: 23-44-7306Xktvdjz encounter bdyxndyon02/10/2026 10:30 AM EST Office Visit [facility] [address] [facility] [address] [place] [address] Jason Phelan MD [address] [place] [phone] (Work) (Fax)[facility] [address] Family MedicineStart: 09-11-2025 End: 46-15-6003Yydfgit encounter procedureNOMS CI FM 100Start: 07-02-2025 End: 94-64-1560Kqwznkq encounter procedureNOMS CI FM 100Comment on above:Central hypothyroidism; Chronic fatigue; Former smokerStart: 06-28-2025 End: 53-93-8300Fvtjanj encounter ttdsthhde24/06/2025 11:00 AM EST Office Visit [facility] [address] [place] [address] Jason Phelan MD [address] [place] [address] (Fax)[facility] CI FM 100Start: 06-26-2025 End: 30-81-6620Ylkhghp encounter procedureNOMS [address] Family MedicineComment on above:Encounter for wellness examination in adult; Advance directive in chart; Screening mammogram, encounter for; Screening for osteoporosis; MenopauseStart: 06-19-2025 End: 24-90-7407Lualdvy encounter tazptfoak30/28/2025 2:00 PM EDT Office Visit [facility] [address] [facility] [address] [place] [address] Jason Phelan MD [address] [place] [address] [facility] [address] [facility] Family MedicineStart: 61-06-1286Vxrqnivrg for malignant neoplasm of breastMammogramNOTX Healthcare Start: 72-58-2968Mtkjmphvb for malignant neoplasm of cervixCervical Cancer ScreeningNOTX HealthcareComment on above:Postponed from 1993 (Other Medical Reasons)Start: 06-04-2025 End: 51-19-0001Diofwilidoqpa metabolic 2000 panel - Serum or PlasmaComprehensive metabolic panel Lab Routine Central hypothyroidism (CMS/HCC) Chronic fatigue Insulin resistance Heterozygous thalassemia Expected: 06/04/2025, Expires: 01/02/2026[facility] Work Phone: Comment on above:Expected: 06/04/2025, Expires: 01/02/2026Start: 06-04-2025 End: 59-64-9245Abxnz 1996 panel - Serum or PlasmaLipid panel Lab Routine Central hypothyroidism (CMS/HCC) Insulin resistance Expected: 06/04/2025, Expires: 01/02/2026[facility] HealthcareComment on above:Expected: 06/04/2025, Expires: 01/02/2026Start: 06-04-2025 End: 34-67-5292Jzfecluax (T4) free [Mass/volume] in Serum or PlasmaT4, free Lab Routine Central hypothyroidism (CMS/HCC) Chronic fatigue Expected: 06/04/2025, Expires: 01/02/2026[facility] HealthcareComment on above:Expected: 06/04/2025, Expires: 01/02/2026Start: 44-40-0365Aecmzotnv vaccinationInfluenza Vaccine (#1) [facility] HealthcareStart: 03-13-2025 End: 04-90-8765Dqcntmm encounter procedureNOMS BNS FMComment on above: Generalized anxiety disorder ; Former smokerStart: 03-13-2025 End: 36-89-6482FSQP-sulfateDHEA-sulfate Lab Routine Hot flashes due to menopause Hormone replacement therapy Chronic fatigue Expected: 03/13/2025 (Approximate), Expires: 03/13/2026[facility] Work Phone: Comment on above:Expected: 03/13/2025 (Approximate), Expires: 03/13/2026Start: 03-13-2025 End: 99-21-1694XspcwdmkcOtnunudtm Lab Routine Hot flashes due to menopause Hormone replacement therapy Chronic fatigue Expected: 03/13/2025 (Approximate), Expires: 03/13/2026[facility] HealthcareComment on above:Expected: 03/13/2025 (Approximate), Expires: 03/13/2026Start: 03-13-2025 End: 83-71-5246MSSQDFD, SERUMESTRIOL, SERUM Lab Routine Hot flashes due to menopause Hormone replacement therapy Chronic fatigueExpected: 03/13/2025 (Approximate), Expires: 03/13/2026[facility] HealthcareComment on above:Expected: 03/13/2025 (Approximate), Expires: 03/13/2026Start: 03-13-2025 End: 11-28-9869JfksxlotnfleNuecfzilklzb Lab Routine Hot flashes due to menopause Hormone replacement therapy Chronic fatigue Expected: 03/13/2025 (Approximate), Expires: 03/13/2026[facility] HealthcareComment on above:Expected: 03/13/2025 (Approximate), Expires: 03/13/2026Start: 03-13-2025 End: 40-13-9268Zzjsyhkvawak, total, msTestosterone, total, ms Lab Routine Hot flashes due to menopause Hormone replacement therapy Chronic fatigue Expected: 03/13/2025 (Approximate), Expires: 03/13/2026[facility] HealthcareComment on above: Expected: 03/13/2025 (Approximate), Expires: 03/13/2026Start: 01-01-2025 End: 58-73-1789Evnkpxk encounter procedureNOMS CI FM 100Comment on above:Central hypothyroidism (CMS/HCC); Iron deficiency; Chronic fatigue; Former smokerStart: 12-15-2024 End: 12-77-7938Ahao and Iron binding capacity panel - Serum or PlasmaIron and TIBC Lab Routine Chronic fatigue Iron deficiency Expected: 12/15/2024 (Approximate), Expires: 07/17/2025[facility] HealthcareComment on above:Expected: 12/15/2024 (Approximate), Expires: 07/17/2025Start: 12-15-2024 End: 06-84-7339Hezamnily (T4) free [Mass/volume] in Serum or PlasmaT4, free Lab Routine Central hypothyroidism (CMS/HCC) Chronic fatigue Expected: 12/15/2024, Expires: 07/17/2025[facility] Work Phone: Comment on above:Expected: 12/15/2024, Expires: 07/17/2025Start: 09-19-2024 End: 96-29-9761Emdiuuc encounter procedureNOMS CI FM 100Comment on above: Generalized anxiety disorder (CMS/HCC); Former smokerStart: 07-17-2024 End: 23-58-8320YF Brain WO contrastMR brain wo contrast Imaging Routine Central hypothyroidism (CMS/HCC) Chronic fatigue Expected: 07/17/2024, Expires: 07/17/2025[facility] HealthcareComment on above:Expected: 07/17/2024, Expires: 07/17/2025Start: 07-17-2024 End: 20-98-0745Vrwjsqe encounter procedureNOMS CI FM 100Comment on above:Central hypothyroidism (CMS/HCC); Chronic fatigue; Former smokerStart: 07-06-2024 End: 46-13-1277Ylwjpqk encounter xvpmqptou73/14/2024 3:30 PM EST Office Visit [facility] [address] [facility] [address] [place] [address] Jason Phelan MD [address] [address] (Fax)[facility] CI FM 100Start: 06-22-2024 End: 43-58-2630Cnotjbs encounter procedureNOMS CI FM 100Comment on above:Central hypothyroidism (CMS/HCC); Chronic fatigue; Former smokerStart: 06-22-2024 End: 71-76-9322OMWTCLWW Lab Routine Central hypothyroidism (CMS/HCC) Chronic fatigue Expected: 06/22/2024 (Approximate), Expires: 06/22/2025[facility] Healthcare Comment on above:Expected: 06/22/2024 (Approximate), Expires: 06/22/2025Start: 06-22-2024 End: 16-90-4308IfdadhhfNirnmxlh Lab Routine Central hypothyroidism (CMS/HCC) Chronic fatigue Expected: 06/22/2024 (Approximate), Expires: 06/22/2025 HealthcareComment on above:Expected: 06/22/2024 (Approximate), Expires: 06/22/2025Start: 06-22-2024 End: 64-87-0689SYWZOA Lab Routine Chronic fatigue Amenorrhea Expected: 06/22/2024 (Approximate), Expires: 06/22/2025 HealthcareComment on above: Expected: 06/22/2024 (Approximate), Expires: 06/22/2025Start: 06-22-2024 End: 12-17-1034Bvtoioimv (T4) free [Mass/volume] in Serum or PlasmaT4, free Lab Routine Central hypothyroidism (CMS/HCC) Chronic fatigue Expected: 06/22/2024 (Approximate), Expires: 06/22/2025[facility] Work Phone: Comment on above:Expected: 06/22/2024 (Approximate), Expires: 06/22/2025Start: 06-19-2024 End: 18-54-4581Qcfbhxr encounter procedureNOMS CI FM 100Comment on above:Hormone replacement therapy; Former smokerStart: 06-12-2024 End: 892354-kzmkrwyhcanxst D3 [Mass/volume] in Serum or PlasmaVitamin D 25 hydroxy Lab Routine Chronic fatigue Arthralgia, unspecified joint Expected: 06/12/2024(Approximate), Expires: 06/12/2025[place] HealthcareComment on above: Expected: 06/12/2024 (Approximate), Expires: 06/12/2025Start: 06-12-2024 End: 74-57-7832NJK MULTIPLEX W/REFLEX 11 AB CASCADEANA MULTIPLEX W/REFLEX 11 AB CASCADE Lab Routine Arthralgia, unspecified joint Expected: 06/12/2024 (Approximate), Expires: 06/12/2025[facility] Work Phone: Comment on above:Expected: 06/12/2024 (Approximate), Expires: 06/12/2025Start: 06-12-2024 End: 29-94-4578YYB W Auto Differential panel - BloodCBC and differential Lab Routine Chronic fatigue Expected: 06/12/2024 (Approximate), Expires: 06/12/2025 [facility] HealthcareComment on above:Expected: 06/12/2024 (Approximate), Expires: 06/12/2025Start: 06-12-2024 End: 51-14-6984Wmhpldhawodzl metabolic 2000 panel - Serum or PlasmaComprehensive metabolic panel Lab Routine Screening for diabetes mellitus (DM) Expected: 06/12/2024(Approximate), Expires: 06/12/2025[facility] HealthcareComment on above: Expected: 06/12/2024 (Approximate), Expires: 06/12/2025Start: 06-12-2024 End: 52-58-6547Gqfdtbrhdgm sedimentation rateSedimentation rate, automated Lab Routine Arthralgia, unspecified joint Expected: 06/12/2024 (Approximate), Expires: 06/12/2025[facility] HealthcareComment on above:Expected: 06/12/2024 (Approximate), Expires: 06/12/2025Start: 06-12-2024 End: 20-48-2588Lotyb 1996 panel - Serum or PlasmaLipid panel Lab Routine Screening for lipid disorders Expected: 06/12/2024 (Approximate), Expires: 1 [facility] HealthcareComment on above:Expected: 06/12/2024 (Approximate), Expires: 06/12/2025Start: 06-12-2024 End: 01-60-6520F3, reverseT3, reverse Lab Routine Chronic fatigue Thyroid nodule (CMS/HCC) Expected: 06/12/2024 (Approximate), Expires: 06/12/2025[facility] HealthcareComment on above:Expected: 06/12/2024 (Approximate), Expires: 06/12/2025Start: 06-12-2024 End: 19-07-7191Lfmkwhtajmbnc AntibodyThyroglobulin Antibody Lab Routine Chronic fatigue Expected: 06/12/2024 (Approximate), Expires: 06/12/2025[facility] Healthcare Comment on above:Expected: 06/12/2024 (Approximate), Expires: 06/12/2025Start: 06-12-2024 End: 20-35-6981Pjhsqtn peroxidase antibodyThyroid peroxidase antibody Lab Routine Chronic fatigue Expected: 06/12/2024 (Approximate), Expires: 06/12/2025 [facility] HealthcareComment on above:Expected: 06/12/2024 (Approximate), Expires: 06/12/2025Start: 06-12-2024 End: 26-40-2640Otwuwbsswtw [Units/volume] in Serum or PlasmaTSH Lab Routine Chronic fatigue Thyroid nodule (CMS/HCC) Expected: 06/12/2024 (Approximate), Expires: 06/12/2025[facility] HealthcareComment on above:Expected: 06/12/2024 (Approximate), Expires: 06/12/2025Start: 06-12-2024 End: 44-08-7313Gadtsldbt (T4) free [Mass/volume] in Serum or PlasmaT4, free Lab Routine Chronic fatigue Thyroid nodule (CMS/HCC) Expected: 06/12/2024 (Approximate), Expires: 06/12/2025[facility] HealthcareComment on above:Expected: 06/12/2024 (Approximate), Expires: 06/12/2025Start: 06-12-2024 End: 30-61-1661Tfydmtzehnswmojp (T3) [Mass/volume] in Serum or PlasmaT3 Lab Routine Chronic fatigue Thyroid nodule (CMS/HCC) Expected: 06/12/2024 (Approximate), Expires: 06/12/2025[facility] HealthcareComment on above:Expected: 06/12/2024 (Approximate), Expires: 06/12/2025Start: 06-12-2024 End: 30-83-1276Kqffozziynwpifsh (T3) Free [Mass/volume] in Serum or PlasmaT3, free Lab Routine Chronic fatigue Thyroid nodule (CMS/HCC) Expected: 06/12/2024 (Approximate), Expires: 06/12/2025[facility] HealthcareComment on above:Expected: 06/12/2024 (Approximate), Expires: 06/12/2025Start: 06-12-2024 End: 91-17-2432DW Thyroid glandUS thyroid Imaging Routine Chronic fatigue Thyroid nodule (CMS/HCC) Expected: 06/12/2024, Expires: 06/12/2025[facility] HealthcareComment on above:Expected: 06/12/2024, Expires: 06/12/2025Start: 06-12-2024 End: 36-59-7489Vqhavxz encounter fosvwhtcr04/21/2024 9:30 AM EDT Office Visit [facility] [address] [id number] Jason Phelan MD [address] [place] [address] Encounter for wellness examination in adult; Advance directive in chart; Screening for diabetes mellitus (DM); Screening for lipid disorders; Screening mammogram, encounter for; Former smokerNOMS CI FM 100 Comment on above:Encounter for wellness examination in adult; Advance directive in chart; Screening for diabetes mellitus (DM); Screening for lipid disorders; Screening mammogram, encounter for; Former smokerStart: 18-18-0650Dfujndnjz for malignant neoplasm of breast MammogramNOTX HealthcareStart: 08-42-3582Gmntddnjv vaccinationInfluenza Vaccine (#1)[facility] HealthcareStart: 10-07-2023 End: 80-69-2348Mvogqux encounter procedureNOMS S FMComment on above: Generalized anxiety disorder (CMS/HCC); Former smoker; BMI 25.0-25.9,adultStart: 81-41-9335Pusuwlaym for malignant neoplasm of cervix [facility] HealthcareStart: 75-23-4280Qyxbxfuyp for malignant neoplasm of cervixPap SmearNOTX HealthcareStart: 65-95-9826Kmflwlhld for malignant neoplasm of colon [facility] Immunizations Immunization DateImmunizationNotesCare KdioaptzMxuocxiv85-97-4161joesrjalf, seasonal, injectable, preservative Sailaja Phelan MD Work Phone: [facility] Nrjjuvkrhk95-42-8796xfgbsbfkj, seasonal, injectable, preservative freeJason Phelan MD Work Phone: [phone] [place], [place] [address]Jwfvlaodth56-52-9199vcqrpqfsn virus vaccine, unspecified formulationJason Phelan MD Work Phone: [phone] [place], [place] [address]Qtawrfzwil01-44-9213Rzcxnnnol, injectable, Madin Jesika Canine Kidney, preservative free, quadrivalentJason Phelan MD Work Phone: [phone] [place], [place] [address]Mnnstahiqn49-27-6477qbjikcmrq virus vaccine, unspecified formulationJason Phelan MD Work Phone: [phone] [place], [place] [address]Myicbhsmel91-59-1811pdlsiijqz, injectable, quadrivalent, preservative freeJason Phelan MD Work Phone: [phone] [place], [place] [address]Hmxbjytbch41-81-8195xniuvw vaccine recombinant Jason Phelan MD Work Phone: [phone] [place], [place] [address]Tpgbowyzwk99-39-0321hglsbj vaccine recombinant Jason Phelan MD Work Phone: [phone] [place], [place] [address]Lujwtugdka12-49-4366nbfusjnza, seasonal, injectableJason Phelan MD Work Phone: [phone] [place], [place] [address]Bxeyvvpast04-80-2403nfarxwrrr, injectable, quadrivalent, preservative freeJason Phelan MD Work Phone: [phone] [place], [place] [address]Tzggwbityg87-39-6869tjebzvdbu, injectable, quadrivalent, preservative freeJason Phelan MD Work Phone: [phone] [place], [place] [address]Gpsxewcpgw83-53-9693bfqfjtrlx, injectable, quadrivalent, preservative freeJason Phelan MD Work Phone: [phone] [place], [place] [address]Exuloiclot84-52-1049vlmweyvgs, high dose seasonal, preservative-freeJason Phelan MD Work Phone: [phone] [place], [place] [address]Vuomwldlkk05-21-4848buedpijyd, injectable, quadrivalent, preservative freeJason Phelan MD Work Phone: [phone] [place], [place] [address]Xwdkmctemd25-34-4608urtvzuigl, injectable, quadrivalent, preservative freeJason Phelan MD Work Phone: [facility]linQmbpvirbpy38-88-6563rvsat htpyrnvkp-O8D1-55, preservative-free, Ruperto Phelan MD Work Phone: [facility] Payers DatePayer CategoryPayerPolicy [id number] [employer] [id number] 2023-Present [address] [address] [place] [id number] Health [id number]599Cvfoimx [id number] 2.0.1.452670.3.579.2.95516-36-3464Uusxcld [id number] 2.0.1.573328.3.57[id number] 2.0.1.045407.3.57[id number] 2.840.1.326657.3.57[id number] 2.0.1.772997.3.57[id number] 2.16840.1.525926.3.57[id number] 2.16840.1.239591.3.57[id number] 2.16840.1.653711.3.57[id number] 2.16840.1.578618.3.57[id number] 2.16.840.1.859939.3.57[id number] Social History DateTypeDetailFacilityStart: 06-06-2023 End: 47-17-7787Jwptmqj smoking status NHISEx-smokerNOMS HealthcareStart: 08-23-1979 End: 46-30-5159Uqyvhjs of tobacco useCurrent smokerNOMS HealthcareStart: 08-23-1979 End: 82-99-4183Etulfzq of tobacco useCigarette SmokerNOMS HealthcareStart: 06-06-2023 End: 37-06-2329Jpjimrm use and exposureSmokeless tobacco non-userNOMS Healthcare Start: 06-14-2023 End: 25-18-7348Ascyltw intakeCurrent drinker of alcohol (finding)[facility] Start: 09-30-2023 End: 59-14-4914Hoeaazl of Social functionNOMS HealthcareStart: 09-30-2023 End: 33-92-4224Uuflivbsuta, Afraid, Rape, and Kick questionnaire [HARK][facility] HealthcareWithin the last year, have you been afraid of your partner or ex-partner?NoNOMS HealthcareStart: 31-11-0912Ogi often do you attend meetings of the [...] money to buy more. Never trueNOMS HealthcareStart: 48-91-1939Ikgwlojae89YLLM HealthcareStart: 20-04-9110Dajhqes CommentCaffeine intake : 3 cups per day of coffeeCEDAR CITY HOSPITAL HealthcareStart: 84-44-0649Mkb Assigned At BirthFemalSt. Jude Children's Research HospitalStart: 89-69-8598Wdfcfr identityIdentifies as female gender (finding)NOM HealthcareHow often do you need to have someone help you when you read instructions, pamphlets, or other written material from your doctor or pharmacy [SILS]Never [facility] HealthcareDo you belong to any clubs or organizations such as samaritan groups, unions, fraternal or athletic groups, or school groups?YesNOMS HealthcareAre you now , , , , never or living with a partner?Living with partnerNOTX HealthcareDo you feel stress - tense, restless, nervous, or anxious, or unable to sleep at night because your mind is troubled all the time - these days [OSQ]Only a littleNOTX Healthcare NEGATED: Highlighted rowStart: NINFHistory of tobacco usePassive smokerMercy Hospital [facility]lin Functional Status LvzyWnhbtqgkdmSwmbkzIenbcqhj16-78-3505Cvhfgez Health Questionnaire 2 item (PHQ- 2) [Reported][facility]oplinIqjbwfmbyf64-59-7109Glowg score [AUDIT-C]4 03/08/2025 3:43 PM EDT Mychart, GenericMercy Hospital JoplinUlvvgvaqnw28-53-3582Vql often do you have a drink containing alcohol?4 or more times a week 03/08/2025 3:43 PM EDT Mychart, Generic 4 or more times a weekMercy Hospital JoplinRgarmkpsox61-72-6992Xea many standard drinks containing alcohol do you have on a typical day?1 or 2 03/08/2025 3:43 PM EDT Mychart, Generic 1 or 2NOMS Sxlpafzfhk18-09-3090Kns often do you have 6 or more drinks on 1 occasion?Never 03/08/2025 3:43 PM EDT Mychart, Generic NeverMercy Hospital JoplinRpuwjavzmv22-45-3903Pkismus Health Questionnaire 2 item (PHQ-2) [Reported][facility] Clinical Notes 06-12-2024 to 07-02-2025 Note Date & FypbTxfjGsbriedq69-74-5858 History of Present illness Narrative* Jason Phelan [...] file prior to visit. documented in this encounterMercy Hospital JoplinOdwpsquflw71-27-9326 History of Present illness Narrative* Jason Phelan [...] next summer. She [place]. 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 We discussed how [...] - Comprehensive metabolic panel documented in [place] encounterSummer [place] [address]Niiswnkfre24-89-6894 History of Present illness Narrative* Jason Phelan MD - 10/19/2024 8:34 AM EST Hormone tests reviewed. PDMP reviewed New prescription generated. Notify the patient that the actual amount that she applies we will need to increase from 0.5 mL to 1 mL documented in this [facility]02-24-2025 Telephone encounter Note* Telephone Encounter - Consuelo [...] was still refilling off her January prescription. [facility]oplinZrkxrteljx64-61-9418 Miscellaneous Notes* Telephone Encounter - Consuelo Aggarwal [...] a refill on her hormone cream to [facility] pharmacy. documented in this [facility]02-24-2025 Telephone encounter Note* Telephone Encounter - Consuelo Aggarwal - 10/16/2024 7:36 AM EST Fiorella left a message requesting a refill on her hormone cream to [facility] pharmacy. [facility] Xmmljpevur32-92-2798 History of Present illness Narrative* Jason Phelan [...] smoker Continue not smoking. documented in this encounterMercy Hospital JoplinScgsyhkmtz77-23-8897 History of Present illness Narrative* Jason Phelan [...] 7.7 Postmenopausal 25.8 - 134.8 Performed at: [facility] [id number] Radio Script Writer: Lalit Burden PhD, Phone: [phone] ACTH, PLASMA 07/01/2024 17.2 7.2 - 63.3 pg/mL Final Comment: ACTH reference interval for samples collected between 7 and 10 AM. Performed at: [facility] [id number] Radio Script Writer: Lalit Burden PhD, Phone: [phone] Clinisync Result Encounter on 06/30/2024 Component Date [...] 0.55 - 1.02 mg/dL Final TBH EGFR-AF NIUEAN 06/30/2024 >60 >=60 mL/min/1.73m 2 Final TBH EGFR-NON AF NIUEAN 06/30/2024 >60 >=60 mL/min/1.73m 2 Final BUN [...] - Iron and TIBC documented in this [facility]11-11-2024 Telephone encounter Note* Telephone Encounter - Jason Phelan MD - 07/03/2024 2:00 PM EST Notify her that her thyroid ultrasound is essentially normal just slightly asymmetric. No further evaluation of the gland itself. [facility] Toplniptve52-60-5281 Miscellaneous Notes* Telephone Encounter - Jason Phelan MD - 07/03/2024 2:00 PM EST Notify her that her thyroid ultrasound is essentially normal just slightly asymmetric. No further evaluation of the gland itself. documented in this [facility]10-31-2024 History of Present illness Narrative* Jason Phelan [...] 06/12/2024 COMMENT . Final Comment: Test Ordered: [id number] SWATHI, IFA Rfx 11 Manuel Multiplex SWATHI by IFA Rfx Titer/Pattern Negative CB Reference Range: . Negative <1:80 Borderline 1:80 Positive >1:80 ICAP nomenclature: AC-0 For more information about Hep-2 cell patterns use ANApatterns.org, the official website for the International Consensus on Antinuclear Antibody (SWATHI) Patterns (ICAP). Performed at: [address] [id number] Radio Script Writer: Lalit Burden PhD, Phone: [phone] [facility] TRIIODOTHYRONINE (T3) 06/12/2024 61 (A) 71 - 180 ng/dL Final Comment: Performed at: [address] [id number] Radio Script Writer: Lalit Burden PhD, Phone: [phone] REVERSE T3, SERUM 06/12/2024 12.5 9.2 - 24.1 ng/dL Final Comment: This test was developed and its performance characteristics determined by [facility]. It has not been cleared or approved by the Food and Drug Administration. Performed at: [address] [id number] Radio Script Writer: Margaret Rene MD, Phone: [phone] THYROID PEROXIDASE (TPO) AB 06/12/2024 10 0 - 34 IU/mL Final THYROGLOBULIN ANTIBODY 06/12/2024 <1.0 0.0 - 0.9 IU/mL Final Comment: Thyroglobulin Antibody measured by [facility] [employer] It should be noted that the presence of thyroglobulin antibodies may not be pathogenic nor diagnostic, especially at very low levels. The assay arts and crafts instructor has found that four percent of individuals without evidence of thyroid disease or autoimmunity will have positive TgAb levels up to 4 IU/mL. Performed at: - [facility] [id number] Radio Script Writer: Lalit Burden PhD, Phone: [phone] Clinisync Result Encounter on 06/12/2024 Component Date [...] FSH; Future - FSH documented in this encounterMercy Hospital JoplinChcwlmtjct62-84-0251 History of Present illness Narrative* Jason Phelan [...] decision making . I have reviewed the [facility] urine hormone profile. I have made notations on the patient's copy to help them remember this complex testing and the complex hormone interactions. I then reviewed this with the patient or their freight representative. I have educated them concerning the [...] adjustment in their medication. documented in this encounterMercy Hospital JoplinYkwjifwxhf55-94-5849 History of Present illness Narrative* Jason Phelan MD - 06/12/2024 9:30 AM EDT Images from the original note were not included. Patient ID: Fiorella Aguillon is a 58 y.o. 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 We discussed how [...] - US thyroid; Future documented in this encounterNOTX HealthcareEvaluation note* Diagnosis Encounter for wellness examination [...] WillAdvance Directives and Living Will Power Of Ripsaw Grader Additional Source Comments INFORMATION SOURCE (unrecogn ized section and content) DATE CREATED AUTHOR 07/04/2022 [facility] DATE CREATED AUTHOR AUTHOR'S ORGANIZ ATION 06/21/2025 [facility] DATE CREATED AUTHOR AUTHOR'S ORGANIZ ATION 07/03/2025 [facility] EPIC Care Teams (unrecognized sec tion and content) Team MemberRelationshipSpecialtyStart DateEnd Date Jason Phelan MD [address] [place] [address] (Fax) PCP - GeneralFamily Medicine01/04/23Team MemberRelationshipSpecialtyStart DateEnd Date Jason Phelan MD [address] [place] [address] (Fax) PCP - Generalmi Medicine01/04/23Team MemberRelationshipSpecialtyStart DateEnd Date Jason Phelan MD [address] [place] [address] (Fax) PCP - GeneralFamily Medicine5/15/23Team MemberRelationshipSpecialtyStart DateEnd Date Jason Phelan MD [address] [facility] [place] [address] (Fax) PCP - GeneralFamily Medicine5/15/23Team MemberRelationshipSpecialtyStart DateEnd Date Jason Phelan MD [address] [place] [address] (Fax) PCP - GeneralFamily Medicine5/1523Team MemberRelationshipSpecialtyStart DateEnd Date Jason Phelan MD [address] [place] [address] (Fax) PCP - GeneralFamily Medicine5/15/23Team MemberRelationshipSpecialtyStart DateEnd Date Jason Phelan MD [address] [place] [address] (Fax) PCP - GeneralFamily Medicine5/15/23Team MemberRelationshipSpecialtyStart DateEnd Date Jason Phelan MD [address] [place] [address] (Fax) PCP - GeneralFamily Medicine5/15/23Team MemberRelationshipSpecialtyStart DateEnd Date Jason Phelan MD [address] [place] [address] (Fax) PCP - GeneralFamily Medicine5/15/23Team MemberRelationshipSpecialtyStart DateEnd Date Jason Phelan MD [address] [place] [address] (Fax) PCP - GeneralFamily Medicine5/15/23Team MemberRelationshipSpecialtyStart DateEnd Date Jason Phelan MD [address] [place] [address] (Fax) PCP - GeneralFamily Medicine5/15/23Team MemberRelationshipSpecialtyStart DateEnd Date Jason Phelan MD [address] [place] [address] (Fax) PCP - GeneralFamily Medicine5/15/23Team MemberRelationshipSpecialtyStart DateEnd Date Jason Phelan MD [address] [place] [address] (Fax) PCP - GeneralFamily Medicine5/15/23Team MemberRelationshipSpecialtyStart DateEnd Date Jason Phelan MD [address] [place] [address] (Fax) PCP - GeneralFamily Medicine5/15/23Team MemberRelationshipSpecialtyStart DateEnd Date Jason Phelan MD [address] [place] [address] (Fax) PCP - GeneralFamily Medicine5/15/23Team MemberRelationshipSpecialtyStart DateEnd Date Jason Phelan MD [address] [place] [address] (Fax) PCP - GeneralFamily Medicine5/15/23Team MemberRelationshipSpecialtyStart DateEnd Date Jason Phelan MD [address] [place] [address] (Fax) PCP - GeneralFamily Medicine01/04/23Team MemberRelationshipSpecialtyStart DateEnd Date Jason Phelan MD [address] [place] [address] (Fax) [facility]CP - [facility]miJeff [facility]01/04/23Team MemberRelationshipSpecialtyStart DateEnd Date Jason Phelan MD [address] [place] [address] (Fax) [facility]CP - [facility]01/04/23Team MemberRelationshipSpecialtyStart DateEnd Date Jason Phelan MD [address] [place] [address] (Fax) PCP - [facility]01/04/23Team MemberRelationshipSpecialtyStart DateEnd Date Jason Phelan MD [address] [place] [address] (Fax) PCP - [facility]01/04/23Team MemberRelationshipSpecialtyStart DateEnd Date Jason Phelan MD [address] [place] [address] (Fax) PCP - [facility]At[facility]01/04/23 Reason for Visit (unrecogniz ed section and content) ReasonCommentsAnnual ExamReasonCommentsHormonesReasonCommentsHypothyroidism ReasonCommentsAnxietyReasonOnset DateCommentsMed Updpbf8710/12/2024ReasonComments Hypothyroidism FOR RECORDS PERTAINING TO PATIENTS WHO [...] BE BASED ON THE PRIMARY CLINICAL RECORDS. [facility] [employer] [facility]. provides no warranty or guarantee of the accuracy or completeness of information in this document.
--- NOTE | 2025-07-24 13:01 | MM_ITS ---
Patient Name: SONAL AGUILLON MR#: [id number] : 1965 Exam Date: 07/24/2025 Ordering Doctor: DR TOAN PHELAN . This report includes an Addendum and supersedes previous reports for this exam. RADIOLOGY REPORT PROCEDURE: MM TOMOSYNTHESIS DIAGNOSTIC RT, 07/24/2025, 12:55 US BREAST RT LIMITED, 07/24/2025, 13:32 COMPARISON: MM TOMOSYNTHESIS SCREENING BI, 07/06/2025. MM TOMOSYNTHESIS SCREENING BI, 06/12/2024. MM TOMOSYNTHESIS SCREENING BI, 06/07/2023. MG MAMM SCREEN 3D ALLYSON CAD, 06/01/2022. INDICATIONS: Abnormal Mammogram Right Breast Calculator Name NCI Breast Cancer Risk Assessment Tool 5 Year Breast Cancer Risk 1.60% Lifetime Breast Cancer Risk 7.90% Personal Breast Cancer No Personal Ovarian Cancer No Treatments None Family Cancers Father with prostate cancer at age 55; Father with pancreatic cancer at age 60. LOCATION: [facility] BREAST COMPOSITION: There are scattered areas of fibroglandular density. FINDINGS: DIAGNOSTIC CATEGORY 2--BENIGN FINDING: LEFT BREAST: Process identified focal asymmetry partially compresses out on today's study. Ultrasound at the 3 o'clock position of the left breast within the retroareolar region demonstrates a small cyst measuring 2 mm . no solid component . RECOMMENDATIONS: ROUTINE MAMMOGRAM AND CLINICAL EVALUATION IN 12 MONTHS. Dictated by: Giovani Ramirez DO on 07/24/2025 at 13:50 Approved by: Giovani Ramirez DO on 07/24/2025 at 13:53 ADDENDUM: FINDINGS: RIGHT BREAST: Previously identified focal asymmetry partially compresses out on today's study. Ultrasound at the 3 o'clock position of the RIGHT breast within the retroareolar region demonstrates a small cyst measuring 2 mm . no solid component . RECOMMENDATIONS: Dictated by: Giovani Ramirez DO on 07/26/2025 at 10:40 Approved by: Giovani Ramirez DO on 07/26/2025 at 10:42
== END 2025-07-24 12:58 | disposition home or self-care (01) ==
LOC: MAMMO 12:57
PROVIDERS: PCP Family Medicine; Visit Provider Family Medicine
DX: R92.8 Other abnormal and inconclusive findings on diagnostic imaging of breast (principal); Z80.42 Family history of malignant neoplasm of prostate; Z80.8 Family history of malignant neoplasm of other organs or systems
CPT/HCPCS: 76642; 77065; G0279